=== PATIENT | female | born 1950 | race Caucasian/White ===

== ENCOUNTER → 2018-01-20 | Outpatient (CLI) | payer MEDICARE, BC ==
--- NOTE | 2018-01-20 15:01 | US ---
LOWER EXTREMITY VENOUS INSUFFICIENCY SIDE PERFORMED: Bilateral 1) Color flow is present and patency is documented in the following vessels. No DVT or SVT is noted . EIV Common Femoral Vein Deep Femoral Vein Femoral Vein Popliteal Vein Proximal Calf Veins Greater Saph Vein Upper Small Saph Vein 2) There is venous reflux noted at the following venous levels: Right: EIV, GSV at level of CFV, CF V, DFV. Left: EIV, GSV at level of CFV. IMPRESSION: 1. Venous reflux as noted.
--- NOTE | 2018-01-25 11:17 | P.ARTDOP ---
Arterial Doppler LOWER EXTREMITY ARTERIAL DOPPLER: DATE OF SERVICE: 01/20/2018 Reason for study: Diabetic ulcer right foot. Doppler waveforms: Multiphasic bilaterally throughout. Pulse volume recording: Normal configuration. Pressure gradients: None. Ankle-brachial indices: Greater than 1 on the right and 0.94 on the left. Toe pressures: 98 on the right, 97 on the left Impression: Normal study.
== END | disposition home or self-care (01) ==
LOC: RADUSWWP 13:21
PROVIDERS: ATTEND Internal Medicine Infectious Disease
DX: E11.621 Type 2 diabetes mellitus with foot ulcer (principal); L97.519 Non-pressure chronic ulcer of other part of right foot with unspecified severity; I87.2 Venous insufficiency (chronic) (peripheral)
CPT/HCPCS: 93923; 93970

== ENCOUNTER → 2018-01-20 | Outpatient (CLI) | payer MEDICARE, BC ==
--- NOTE | 2018-01-20 13:09 | NM ---
EXAMINATION TYPE: NM bone 3 phase DATE OF EXAM: 01/20/2018 COMPARISON: NONE HISTORY: Nonhealing wound Triple phase bone scintigraphy was performed following the injection of 24 mCi Tc 99m MDP. Immediate images and 5 hours post injection images acquired. FINDINGS: There is increased flow particularly along the left ankle region. Slight increased flow to the third digit on the right. Next sentence there is increased uptake on soft tissue blood pool images along th e medial margin of the left ankle and along the distal margin of the right third digit Delayed imaging demonstrates intense abnormal uptake involving the posterior margin of the left calca neus and there is also increased uptake involving the distal margin of the right third digit. IMPRESSION: 1. Findings are suggestive of osteomyelitis and cellulitis right third digit. 2. Findings involving the posterior margin of the calcaneus are nonspecific can be seen on a posttrau matic basis or infectious etiology correlate with x-ray.
== END | disposition home or self-care (01) ==
LOC: RADNMMAIN 07:20
PROVIDERS: ATTEND Internal Medicine Infectious Disease
DX: E11.621 Type 2 diabetes mellitus with foot ulcer (principal)
CPT/HCPCS: 78315; A9503

== ENCOUNTER → 2018-02-01 | Outpatient (CLI) | payer MEDICARE, BC ==
--- NOTE | 2018-02-02 14:29 | NM ---
EXAMINATION TYPE: NM WBC limited DATE OF EXAM: 02/02/2018 COMPARISON: Bone scan 01/20/2018, toes right foot 01/13/2018 HISTORY: Osteomyelitis TECHNIQUE: Following administration of 21.4 mCi Tc99m Ceretec. Images obtained 4 hour(s) and 23 april r(s) post injection. FINDINGS: There is increased radio pharmaceutical uptake seen at the level of the third digit of the right foot as on bone scan. No corresponding radio pharmaceutical uptake at the level of the patient's posterior left calcaneus. IMPRESSION: Findings compatible with osteomyelitis third digit right foot
== END | disposition home or self-care (01) ==
LOC: RADNMMAIN 06:41
PROVIDERS: ATTEND Podiatrist
DX: M86.8X8 Other osteomyelitis, other site (principal)
CPT/HCPCS: 78805; A9569

== ENCOUNTER 2018-10-20 09:56 | Emergency (ER) | payer MEDICARE, BC ==
[2018-10-20 10:00] VITALS: RESP 18; TEMP 98.6
[2018-10-20] MEDS ORDERED: IPRATROPIUM-ALBUTEROL 3 ML NEB INHALATION STA (10:17)
--- NOTE | 2018-10-20 11:07 | ED ---
SOB HPI - General Chief Complaint: Shortness of Breath Stated Complaint: cough,chest pressure Time Seen by Provider: 10/20/18 10:06 Source: patient Mode of arrival: ambulatory Limitations: no limitations - History of Present Illness Initial Comments: This a 67-year-old female presents emergency Department chief complaint of cough congestion shortness of breath. Patient states she's been sick for last 4-5 days. Patient states her cough has worsened overnight she states is a 1 sounding cough which is nonproductive she has noticed wheezing and some chest tightness states that she has no exact pain. Patient has no prior cardiac disease she is a known diabetic. Denies any history of COPD or asthma. She does have known seasonal ALLERGIES. She has been taking some zeiu-vom-[id number] cough and cold medications. Patient denies any fevers or chills today. - Related Data Home Medications Medication Instructions Recorded Confirmed Atorvastatin [Lipitor] 20 mg PO HS 01/10/18 10/20/18 PARoxetine [Paxil] 20 mg PO DAILY 01/10/18 10/20/18 diphenhydrAMINE [Benadryl] 25 mg PO BID 01/10/18 10/20/18 metFORMIN HCL [Glucophage] 500 mg PO BID 01/10/18 10/20/18 Omeprazole [PriLOSEC] 20 mg PO AC-BID 01/13/18 10/20/18 Multivitamins, Thera [Multivitamin 1 tab PO DAILY 10/20/18 10/20/18 (formulary)] Previous Rx's Medication Instructions Recorded Albuterol Nebulized [Ventolin 2.5 mg INHALATION Q4H PRN #25 nebu 10/20/18 Nebulized] Azithromycin [Zithromax Z-pack] 0 mg PO DIRECTED #1 pack 10/20/18 Allergies Allergy/AdvReac Type Severity Reaction Status Date / Time Penicillins Allergy Swelling Verified 10/20/18 10:30 sulfamethoxazole Allergy shaking Verified 10/20/18 10:30 [From Bactrim] trimethoprim [From Bactrim] Allergy shaking Verified 10/20/18 10:30 Review of Systems ROS Statement: Those systems with pertinent positive or pertinent negative responses have been documented in the HPI. ROS Other: All systems not noted in ROS Statement are negative. Past Medical History Past Medical History: Diabetes Mellitus, Hyperlipidemia, Osteoarthritis (OA) Additional Past Medical History / Comment(s): GOUT, ATHRITIS,lt elbow and lower back bone spur, wound 3rd toe rt foot History of Any Multi-Drug Resistant Organisms: None Reported Past Surgical History: Cholecystectomy, Hysterectomy Additional Past Surgical History / Comment(s): SX FOR GLAUCOMA, SURGERY FOR RECTAL ABSCESS Past Anesthesia/Blood Transfusion Reactions: No Reported Reaction Past Psychological History: Anxiety Smoking Status: Former smoker Past Alcohol Use History: None Reported Past Drug Use History: None Reported - Past Family History Father Family Medical History: CVA/TIA, Hypertension Additional Family Medical History / Comment(s): AT AGE 95- NEVER TOOK ANY PRESCRIPTION MEDS UNTIL AGE 85 Mother Family Medical History: Congestive Heart Failure (CHF), Diabetes Mellitus, Myocardial Infarction ([place]) Additional Family Medical History / Comment(s): AT AGE 73-from [place] General Exam Limitations: no limitations General appearance: alert, in no apparent distress Head exam: Present: atraumatic, normocephalic, normal inspection Eye exam: Present: normal appearance, PERRL, EOMI. Absent: scleral icterus, conjunctival injection, periorbital swelling ENT exam: Present: normal exam, normal oropharynx, mucous membranes moist Neck exam: Present: normal inspection. Absent: tenderness, meningismus, lymphadenopathy Respiratory exam: Present: wheezes. Absent: normal lung sounds bilaterally, respiratory distress, rales, rhonchi, stridor Cardiovascular Exam: Present: regular rate, normal rhythm, normal heart sounds. Absent: systolic murmur, diastolic murmur, rubs, gallop, clicks Neurological exam: Present: alert, oriented X3, CN II-XII intact Skin exam: Present: warm, dry, intact, normal color. Absent: rash Course Vital Signs 10/20/18 10/20/18 10/20/18 09:57 11:30 11:33 Temperature 98.6 F Pulse Rate 101 H 85 83 Respiratory 18 18 Rate Blood Pressure 146/75 145/79 O2 Sat by Pulse 98 95 Oximetry 10/20/18 11:43 Temperature Pulse Rate 85 Respiratory Rate Blood Pressure O2 Sat by Pulse Oximetry Medical Decision Making - Medical Decision Making 67-year-old female presented for cough congestion shortness of breath. Patient has upper respiratory infection x-rays reviewed shows no evidence of pneumonia. Labs are unremarkable. EKG is unremarkable patient will be discharged with azithromycin, albuterol. She does feel greatly improved after breathing treatment here in emergency department. - Lab Data Result diagrams: 10/20/18 11:00 10/20/18 11:00 Lab Results 10/20/18 10/20/18 10/20/18 Range/Units 11:00 11:00 11:00 WBC 8.9 (3.8-10.6) k/uL RBC 5.08 (3.80-5.40) m/uL Hgb 15.3 (11.4-16.0) gm/dL Hct 47.0 H (34.0-46.0) % MCV 92.5 (80.0-100.0) fL MCH 30.2 (25.0-35.0) pg MCHC 32.7 (31.0-37.0) g/dL RDW 13.0 (11.5-15.5) % Plt Count 211 (150-450) k/uL Neutrophils % 83 % Lymphocytes % 11 % Monocytes % 4 % Eosinophils % 1 % Basophils % 0 % Neutrophils # 7.3 (1.3-7.7) k/uL Lymphocytes # 1.0 (1.0-4.8) k/uL Monocytes # 0.4 (0-1.0) k/uL Eosinophils # 0.1 (0-0.7) k/uL Basophils # 0.0 (0-0.2) k/uL PT 9.5 (9.0-12.0) sec INR 0.9 (<1.2) APTT 27.6 (22.0-30.0) sec Sodium 135 L (137-145) mmol/L Potassium 5.1 (3.5-5.1) mmol/L Chloride 101 (98-107) mmol/L Carbon Dioxide 22 (22-30) mmol/L Anion Gap 12 mmol/L BUN 15 (7-17) mg/dL Creatinine 0.75 (0.52-1.04) mg/dL Est GFR (CKD-EPI)AfAm >90 (>60 ml/min/1.73 sqM) Est GFR (CKD-EPI)NonAf 82 (>60 ml/min/1.73 sqM) Glucose 238 H (74-99) mg/dL Calcium 9.1 (8.4-10.2) mg/dL Total Bilirubin 0.6 (0.2-1.3) mg/dL AST 74 H (14-36) U/L ALT 70 H (9-52) U/L Alkaline Phosphatase 85 (38-126) U/L Troponin I (0.000-0.034) ng/mL Total Protein 6.9 (6.3-8.2) g/dL Albumin 4.2 (3.5-5.0) g/dL 10/20/18 Range/Units 11:00 WBC (3.8-10.6) k/uL RBC (3.80-5.40) m/uL Hgb (11.4-16.0) gm/dL Hct (34.0-46.0) % MCV (80.0-100.0) fL MCH (25.0-35.0) pg MCHC (31.0-37.0) g/dL RDW (11.5-15.5) % Plt Count (150-450) k/uL Neutrophils % % Lymphocytes % % Monocytes % % Eosinophils % % Basophils % % Neutrophils # (1.3-7.7) k/uL Lymphocytes # (1.0-4.8) k/uL Monocytes # (0-1.0) k/uL Eosinophils # (0-0.7) k/uL Basophils # (0-0.2) k/uL PT (9.0-12.0) sec INR (<1.2) APTT (22.0-30.0) sec Sodium (137-145) mmol/L Potassium (3.5-5.1) mmol/L Chloride (98-107) mmol/L Carbon Dioxide (22-30) mmol/L Anion Gap mmol/L BUN (7-17) mg/dL Creatinine (0.52-1.04) mg/dL Est GFR (CKD-EPI)AfAm (>60 ml/min/1.73 sqM) Est GFR (CKD-EPI)NonAf (>60 ml/min/1.73 sqM) Glucose (74-99) mg/dL Calcium (8.4-10.2) mg/dL Total Bilirubin (0.2-1.3) mg/dL AST (14-36) U/L ALT (9-52) U/L Alkaline Phosphatase (38-126) U/L Troponin I <0.012 (0.000-0.034) ng/mL Total Protein (6.3-8.2) g/dL Albumin (3.5-5.0) g/dL - EKG Data EKG Comments: EKG performed at 10:47 normal sinus rhythm with rate 88 SD 166 QRS 82 QT/QTC 370/447, poor data quality V5 V6 Disposition Clinical Impression: Acute bronchitis, Upper respiratory infection Disposition: HOME SELF-CARE Condition: Stable Instructions (If sedation given, give patient instructions): Acute Bronchitis (ED) Additional Instructions: Please return to the Emergency Department if symptoms worsen or any other concerns. Prescriptions: Albuterol Nebulized [Ventolin Nebulized] 2.5 mg INHALATION Q4H PRN #25 nebu PRN Reason: difficulty in breathing Azithromycin [Zithromax Z-pack] 0 mg PO DIRECTED #1 pack Is patient prescribed a controlled substance at d/c from ED?: No Referrals: Jonel Aguilar MD [Primary Care Provider] - 1-2 days Time of Disposition: 12:20
[2018-10-20 11:16] LABS: Basophils % (A) 0 %; Eosinophils # (A) 0.1 k/uL (0-0.7); Eosinophils % (A) 1 %; HGB 15.3 gm/dL (11.4-16.0); Lymphocytes % (A) 11 %; MCH 30.2 pg (25.0-35.0); MCHC 32.7 g/dL (31.0-37.0); MCV 92.5 fL (80.0-100.0); Mean Platelet Volume 7.3; Monocytes # (A) 0.4 k/uL (0-1.0); Monocytes % (A) 4 %; Neutrophils # (A) 7.3 k/uL (1.3-7.7); Neutrophils % (A) 83 %; Platelet Count 211 k/uL (150-450); RBC 5.08 m/uL (3.80-5.40); WBC 8.9 k/uL (3.8-10.6)
[2018-10-20 11:24] LABS: Albumin 4.2 g/dL (3.5-5.0); Anion Gap 12 mmol/L; Blood Urea Nitrogen 15 mg/dL (7-17); Calcium 9.1 mg/dL (8.4-10.2); Carbon Dioxide 22 mmol/L (22-30); Chloride 101 mmol/L (98-107); Glucose 238 mg/dL (74-99); Sodium 135 mmol/L (137-145); Total Bilirubin 0.6 mg/dL (0.2-1.3); Total Protein 6.9 g/dL (6.3-8.2)
[2018-10-20 11:26] LABS: INR 0.9 (<1.2); Partial Thromboplastin Time 27.6 sec (22.0-30.0); Prothrombin Time 9.5 sec (9.0-12.0)
--- NOTE | 2018-10-20 11:28 | XR ---
EXAMINATION TYPE: XR chest 2V DATE OF EXAM: 10/20/2018 COMPARISON: Chest x-ray 10/24/2012 HISTORY: Difficulty breathing TECHNIQUE: Frontal and lateral views of the chest are obtained. FINDINGS: There are overlying cardiac leads. The aorta is dense. There is no focal air space opacity, pleural effusion, or pneumothorax seen. The cardiac silhouette size is stable. Thoracic spondylosi s is again noted. The osseous structures are intact. IMPRESSION: No acute cardiopulmonary process.
[2018-10-20 11:32] LABS: Potassium 5.1 mmol/L (3.5-5.1)
[2018-10-20 11:33] LABS: ALT 70 U/L (9-52); AST 74 U/L (14-36); Alkaline Phosphatase 85 U/L (38-126)
[2018-10-20] MEDS ORDERED: cefTRIAXone IN SWFI 1,000 MG/10 ML SYRINGE IVP STA (12:17)
[2018-10-20 12:26] VITALS: BP 147/93; PULSE 96
== END 2018-10-20 12:30 | disposition home or self-care (01) ==
LOC: EC 09:56
DX: J20.9 Acute bronchitis, unspecified (principal); J06.9 Acute upper respiratory infection, unspecified; E11.9 Type 2 diabetes mellitus without complications; E78.5 Hyperlipidemia, unspecified; F41.9 Anxiety disorder, unspecified; Z87.891 Personal history of nicotine dependence; Z82.49 Family history of ischemic heart disease and other diseases of the circulatory system; Z79.84 Long term (current) use of oral hypoglycemic drugs; Z79.899 Other long term (current) drug therapy; Z88.0 Allergy status to penicillin; Z88.2 Allergy status to sulfonamides
CPT/HCPCS: 36415; 94640; 93005; 80053; 84484; 85025; 85610; 85730; 71046; 99285; 96374; J0696

== ENCOUNTER 2022-03-26 19:32 | Emergency (ER) | payer MEDICARE, BC ==
[2022-03-26 19:51] VITALS: BP 195/78; PULSE 88; RESP 16; TEMP 98.2
--- NOTE | 2022-03-26 21:22 | CT ---
EXAMINATION TYPE: CT brain flex perla DATE OF EXAM: 03/26/2022 COMPARISON: Protocol. HISTORY: Pt was using a chain saw and a tree branch came back and hit her in the head. Pts left eye i s swollen and bruised. CT DLP: 1389.2 mGycm. Automated Exposure Control for Dose Reduction was Utilized. TECHNIQUE: CT scan of the head and cervical spine are performed without contrast. FINDINGS: There is focal soft tissue swelling over the right orbit, in preseptal position. No underly ing fracture. The orbital contents are unremarkable. There is no skull fracture or acute intracranial hemorrhage, mass effect, or midline shift identified . The ventricles and sulci are within normal limits in size. The globes are intact and the visualiz ed sinuses are clear. Cervical spine is visualized in its entirety from C1 through upper thoracic levels and demonstrates s atisfactory alignment without evidence of acute fracture or dislocation. Prevertebral soft tissue ap pears within normal limits. The C1-C2 articulation is unremarkable. IMPRESSION: 1. There is no acute fracture or dislocation evident in the cervical spine. 2. No acute intracranial hemorrhage, mass effect, or midline shift is seen.
--- NOTE | 2022-03-26 21:26 | CT ---
EXAMINATION TYPE: CT facial bones wo con DATE OF EXAM: 03/26/2022 COMPARISON: NONE HISTORY: Pt was using a chain saw and a tree branch came back and hit her in the head. Pts left eye i s swollen and bruised. CT DLP: 1389.2 mGycm. Automated Exposure Control for Dose Reduction was Utilized. TECHNIQUE: CT scan of the sinuses is performed without contrast, axial images are obtained, coronal r eformatted images are also reviewed. FINDINGS: There is focal soft tissue swelling over the right orbit, in preseptal position. No underlying fractu re. The orbital contents are unremarkable. The frontal and bilateral ethmoid sinuses are clear and unremarkable. The sphenoid and bilateral maxi llary sinuses are clear and unremarkable. No incidental findings. IMPRESSION: Focal soft tissue swelling of the right orbit.13
--- NOTE | 2022-03-26 21:51 | ED ---
Head Injury HPI - General Chief complaint: Head Injury Stated complaint: Facial injury Source: patient, RN notes reviewed Mode of arrival: ambulatory Limitations: no limitations - History of Present Illness Initial comments: Patient is a 71-year-old female presents to the emergency room after having a very large tree branch fall onto her head and facial region. She denies any loss of consciousness. She does have bruising and swelling around her right orbit. She denies any blurred or double vision headache not directly related to area that is ecchymotic, dizziness, abdominal pain, chest pain, shortness of breath, nausea, vomiting, altered mental status or focal neurological deficits. She has a past medical history significant for diabetes, hyperlipidemia and art hritis. - Related Data Home Medications Medication Instructions Recorded Confirmed Atorvastatin [Lipitor] 20 mg PO HS 01/10/18 10/20/18 PARoxetine [Paxil] 20 mg PO DAILY 01/10/18 10/20/18 diphenhydrAMINE [Benadryl] 25 mg PO BID 01/10/18 10/20/18 metFORMIN HCL [Glucophage] 500 mg PO BID 01/10/18 10/20/18 Omeprazole [PriLOSEC] 20 mg PO AC-BID 01/13/18 10/20/18 Multivitamins, Thera [Multivitamin 1 tab PO DAILY 10/20/18 10/20/18 (formulary)] Previous Rx's Medication Instructions Recorded Albuterol Nebulized [Ventolin 2.5 mg INHALATION Q4H PRN #25 nebu 10/20/18 Nebulized] Azithromycin [Zithromax Z-pack (6 0 mg PO DIRECTED #1 pack 10/20/18 tabs)] Allergies/Adverse reactions: Allergies Allergy/AdvReac Type Severity Reaction Status Date / Time Penicillins Allergy Swelling Verified 10/20/18 10:30 sulfamethoxazole Allergy shaking Verified 10/20/18 10:30 [From Bactrim] trimethoprim [From Bactrim] Allergy shaking Verified 10/20/18 10:30 Review of Systems ROS Statement: Those systems with pertinent positive or pertinent negative responses have been documented in the HPI. ROS Other: All systems not noted in ROS Statement are negative. Past Medical History Past Medical History: Diabetes Mellitus, Hyperlipidemia, Osteoarthritis (OA) Additional Past Medical History / Comment(s): GOUT, ATHRITIS,lt elbow and lower back bone spur, wound 3rd toe rt foot History of Any Multi-Drug Resistant Organisms: None Reported Past Surgical History: Cholecystectomy, Hysterectomy Additional Past Surgical History / Comment(s): SX FOR GLAUCOMA, SURGERY FOR RECTAL ABSCESS Past Anesthesia/Blood Transfusion Reactions: No Reported Reaction Past Psychological History: Anxiety Past Alcohol Use History: None Reported Past Drug Use History: None Reported - Past Family History Father Family Medical History: CVA/TIA, Hypertension Additional Family Medical History / Comment(s): AT AGE 95- NEVER TOOK ANY PRESCRIPTION MEDS UNTIL AGE 85 Mother Family Medical History: Congestive Heart Failure (CHF), Diabetes Mellitus, Myocardial Infarction ([place]) Additional Family Medical History / Comment(s): AT AGE 73-from [place] General Exam General appearance: alert, in no apparent distress Head exam: Present: normocephalic Expanded Head exam: Present: abrasion ( right upper orbit), hematoma (right lateral orbit) Eye exam: Present: normal appearance, PERRL, EOMI, periorbital swelling ( right), periorbital tenderness ( right). Absent: scleral icterus, conjunctival injection, nystagmus ENT exam: Present: normal exam, mucous membranes moist Neck exam: Present: normal inspection, full ROM. Absent: tenderness Respiratory exam: Absent: respiratory distress, accessory muscle use Extremities exam: Present: normal inspection, full ROM. Absent: pedal edema, joint swelling Back exam: Present: normal inspection Neurological exam: Present: alert, oriented X3, CN II-XII intact Psychiatric exam: Present: normal affect, normal mood Skin exam: Present: abrasion ( right upper orbit with ecchymosis) Course Vital Signs 03/26/22 19:47 Temperature 98.2 F Pulse Rate 88 Respiratory 16 Rate Blood Pressure 195/78 O2 Sat by Pulse 99 Oximetry Medical Decision Making - Medical Decision Making 71-year-old female presenting to the ER after head trauma without loss of consciousness significant hematoma to right orbit. No indication for laboratory studies. Denies any analgesic need. Will check computed tomography scan of the facial bones to evaluate for fractures Along with CT cervical spine and brain. CT reveals no mass, bleed or shift to the brain, no cervical spine fractures or facial bone fractures. Discuss concussive symptoms at length and return parameters to the emergency room will discharge home. Case discussed with Dr. Garcia. - Radiology Data Radiology results: report reviewed, image reviewed CT facial bones without contrast impression: Focal soft tissue swelling at the right orbit no underlying fractures orbital contents are unremarkable. Computed tomography scan of brain and cervical spine without contrast impression: There is no acute fracture or dislocation evident in the cervical spine. No acute intracranial hemorrhage, mass effect or midline shift is seen. Disposition Clinical Impression: Traumatic hematoma of right orbit Disposition: HOME SELF-CARE Instructions (If sedation given, give patient instructions): Concussion (ED), Hematoma (ED) Additional Instructions: Please follow-up with your primary care provider. Please utilize Tylenol or ibuprofen [id number] as needed for pain. Please continue to apply ice every 2-3 hours for 20 minute increments to the right orbital hematoma. Please continue to monitor for concussive symptoms and return to the emergency room if symptoms worsen. Please return to the Emergency Department if symptoms worsen or any other concerns. Is patient prescribed a controlled substance at d/c from ED?: No Referrals: Jonel Aguilar MD [Primary Care Provider] - 1-2 days Time of Disposition: 21:50
== END 2022-03-26 22:13 | disposition home or self-care (01) ==
LOC: EC 19:32
DX: H05.231 Hemorrhage of right orbit (principal); E11.9 Type 2 diabetes mellitus without complications; E78.5 Hyperlipidemia, unspecified; M19.90 Unspecified osteoarthritis, unspecified site; F41.9 Anxiety disorder, unspecified; Z88.0 Allergy status to penicillin; Z79.82 Long term (current) use of aspirin; Z79.84 Long term (current) use of oral hypoglycemic drugs; Z79.899 Other long term (current) drug therapy; Z79.51 Long term (current) use of inhaled steroids
CPT/HCPCS: 70450; 70486; 72125; 99283

== ENCOUNTER 2023-04-29 17:29 | Emergency (ER) | payer MEDICARE, BC ==
--- NOTE | 2023-04-29 18:26 | ED ---
General Adult HPI - General Source: patient, RN notes reviewed <Kristan Chowdary - Last Filed: 04/29/23 18:24> <oLy Almaraz - Last Filed: 04/30/23 02:16> - General Chief complaint: Fall Stated complaint: Back pain Time Seen by Provider: 04/29/23 18:20 - History of Present Illness Initial comments: 72-year-old female presents emergency department chief complaint of fall. Patient states that she was working in the yard cutting branches off a tree. She states that she was pulling on a branch when it broke causing her to fall backwards onto her bottom. She reports pain to her left hip and low back. She has not tried walking since this happened. (Kristan Chowdary) 72-year-old female presenting with chief complaint of low back pain. She was doing yard work, she was attempting to cut down a tree branch, when she pulled the branch the branch broke and caused her to fall backwards. Patient states that she landed on her bottom. She denies any head injury, loss of consciousness, or use of blood thinners. She admits to pain in the lower back with radiation to the left hip. No loss of bowel or bladder control or saddle paresthesia. No numbness, tingling, weakness. (Loy Almaraz) - Related Data Home Medications Medication Instructions Recorded Confirmed Atorvastatin [Lipitor] 20 mg PO HS 01/10/18 10/20/18 PARoxetine [Paxil] 20 mg PO DAILY 01/10/18 10/20/18 diphenhydrAMINE [Benadryl] 25 mg PO BID 01/10/18 10/20/18 metFORMIN HCL [Glucophage] 500 mg PO BID 01/10/18 10/20/18 Omeprazole [PriLOSEC] 20 mg PO AC-BID 01/13/18 10/20/18 Multivitamins, Thera [Multivitamin 1 tab PO DAILY 10/20/18 10/20/18 (formulary)] Previous Rx's Medication Instructions Recorded Albuterol Nebulized [Ventolin 2.5 mg INHALATION Q4H PRN #25 nebu 10/20/18 Nebulized] Azithromycin [Zithromax Z-pack (6 0 mg PO DIRECTED #1 pack 10/20/18 tabs)] Allergies Allergy/AdvReac Type Severity Reaction Status Date / Time Penicillins Allergy Swelling Verified 04/29/23 18:26 sulfamethoxazole Allergy shaking Verified 04/29/23 18:26 [From Bactrim] trimethoprim [From Bactrim] Allergy shaking Verified 04/29/23 18:26 Review of Systems ROS Other: All systems not noted in ROS Statement are negative. <Kristan Chowdary - Last Filed: 04/29/23 18:24> ROS Other: All systems not noted in ROS Statement are negative. <Loy Almaraz - Last Filed: 04/30/23 02:16> ROS Statement: Those systems with pertinent positive or pertinent negative responses have been documented in the HPI. Past Medical History Past Medical History: Diabetes Mellitus, Hyperlipidemia, Osteoarthritis (OA) Additional Past Medical History / Comment(s): GOUT, ATHRITIS,lt elbow and lower back bone spur, wound 3rd toe rt foot History of Any Multi-Drug Resistant Organisms: None Reported Past Surgical History: Cholecystectomy, Hysterectomy Additional Past Surgical History / Comment(s): SX FOR GLAUCOMA, SURGERY FOR RECTAL ABSCESS Past Anesthesia/Blood Transfusion Reactions: No Reported Reaction Past Psychological History: Anxiety Past Alcohol Use History: None Reported Past Drug Use History: None Reported - Past Family History Father Family Medical History: CVA/TIA, Hypertension Additional Family Medical History / Comment(s): AT AGE 95- NEVER TOOK ANY PRESCRIPTION MEDS UNTIL AGE 85 Mother Family Medical History: Congestive Heart Failure (CHF), Diabetes Mellitus, Myocardial Infarction (NH) Additional Family Medical History / Comment(s): AT AGE 73-from NH <Kristan Chowdary - Last Filed: 04/29/23 18:24> General Exam <Kristan Chowdary - Last Filed: 04/29/23 18:24> Limitations: no limitations General appearance: alert, in no apparent distress Head exam: Present: atraumatic, normocephalic, normal inspection Eye exam: Present: normal appearance, EOMI Neck exam: Present: normal inspection, full ROM Respiratory exam: Present: normal lung sounds bilaterally. Absent: respiratory distress, wheezes, rales, rhonchi, stridor Cardiovascular Exam: Present: regular rate, normal rhythm, normal heart sounds. Absent: systolic murmur, diastolic murmur, rubs, gallop, clicks Back exam: Present: normal inspection Neurological exam: Present: alert, oriented X3 Expanded Patient oriented to: Present: person, place, time Speech: Present: fluid speech Eye Response: (4) open spontaneously Motor Response: (6) obeys commands Verbal Response: (5) oriented Mouna Total: 15 Psychiatric exam: Present: normal affect, normal mood Skin exam: Present: warm, dry <Loy Almaraz - Last Filed: 04/30/23 02:16> - General Exam Comments Initial Comments: Visual Physical Exam Vital signs reviewed General: Well-appearing, nontoxic, no acute distress. Head: Normocephalic, atraumatic Eyes: PERRLA, EOMI ENT: Airway patent Chest: Nonlabored breathing Skin: No visual rash, normal skin tone Neuro: Alert and oriented 3 Musculoskeletal: No gross abnormalities (Kristan Chowdary) Course Vital Signs 04/29/23 04/29/23 18:21 20:25 Temperature 97.6 F 97.6 F Pulse Rate 74 78 Respiratory 18 18 Rate Blood Pressure 142/82 152/82 O2 Sat by Pulse 98 98 Oximetry Medical Decision Making <Kristan Chowdary - Last Filed: 04/29/23 18:24> <Loy Almaraz - Last Filed: 04/30/23 02:16> - Medical Decision Making I preformed the quick note portion of this chart. Electronically signed by Kristan Chowdary PA-C (Kristan Chowdary) Was pt. sent in by a medical professional or institution ([facility], CO[employer] M[employer] OPERATOR, urgent care, hospital, or long term...) When possible be specific @ -No Did you speak to anyone other than the patient for history (EMS, parent, family, police, friend...)? What history was obtained from this source @ -No Did you review nursing and triage notes (agree or disagree)? Why? @ -I reviewed and agree with nursing and triage notes Were old charts reviewed (outside hosp., previous admission, EMS record, old EKG, old radiological studies, urgent care reports/EKG's, long term records)? Report findings @ -No old charts were reviewed Differential Diagnosis (chest pain, altered mental status, abdominal pain women, abdominal pain men, vaginal bleeding, weakness, fever, dyspnea, syncope, headache, dizziness, GI bleed, back pain, seizure, CVA, palpatations, mental health, musculoskeletal)? @ -Differential Musculoskeletal Muscular strain, contusion, ligament sprain, fracture, arthritis, septic arthritis, bursitis, cellulitis, muscle spasm, nerve compression, DVT, arterial occlusion, herpes zoster, electrolyte abnormality, tumor.... This is not meant to be in all inclusive list EKG interpreted by me (3pts min.). @ -As above X-rays interpreted by me (1pt min.). @ -No acute process seen on x-rays of the lumbar spine or left hip and pelvis CT interpreted by me (1pt min.). @ -None done U/S interpreted by me (1pt. min.). @ -None done What testing was considered but not performed or refused? (CT, X-rays, U/S, labs)? Why? @ -None What meds were considered but not given or refused? Why? @ -None Did you discuss the management of the patient with other professionals (professionals i.e. , PA, COAL MILL OPERATOR, lab, RT, psych nurse, social services director, balance sheet analyst, teacher, fisheries technical officer, business case analyst)? Give summary @ -No Was smoking cessation discussed for >3mins.? @ -No Was critical care preformed (if so, how long)? @ -No Were there social determinants of health that impacted care today? How? (Homelessness, low income, unemployed, alcoholism, drug addiction, transportation, low edu. Level, literacy, decrease access to med. care, usp, rehab)? @ -No Was there de-escalation of care discussed even if they declined (Discuss DNR or withdrawal of care, Hospice)? DNR status @ -No What co-morbidities impacted this encounter? (DM, HTN, Smoking, COPD, CAD, Cancer, CVA, ARF, Chemo, Hep., AIDS, mental health diagnosis, sleep apnea, morbid obesity)? @ -None Was patient admitted / discharged? Hospital course, mention meds given and route, prescriptions, significant lab abnormalities, going to OR and other pertinent info. @ -72-year-old female presenting for evaluation of lower back pain after a fall from standing today. No head injury, loss of consciousness, use of blood thinners. Pain is mainly in the lower back with radiation to the left hip. Physical exam is conducted, no focal neurological deficits. Negative x-rays. Patient reports improvement after medication. Educated on supportive management at home. Follow-up with PCP. Report back to ER with any new or worsening symptoms. Discussed return parameters and answered all questions. Patient conveyed verbal understanding and agreed to the plan. I discussed this case in detail with my attending Dr. Lucas Undiagnosed new problem with uncertain prognosis? @ -No Drug Therapy requiring intensive monitoring for toxicity (Heparin, Nitro, Insulin, Cardizem)? @ -No Were any procedures done? @ -No Diagnosis/symptom? @ -Lumbar back pain Acute, or Chronic, or Acute on Chronic? @ -Acute Uncomplicated (without systemic symptoms) or Complicated (systemic symptoms)? @ -Uncomplicated Side effects of treatment? @ -No Exacerbation, Progression, or Severe Exacerbation? @ -No Poses a threat to life or bodily function? How? (Chest pain, [place], NH, pneumonia, PE, COPD, DKA, ARF, appy, cholecystitis, CVA, Diverticulitis, Homicidal, Webb icidal, threat to staff... and all critical care pts) @ -No (Loy Almaraz) Disposition <Kristan Chowdary - Last Filed: 04/29/23 18:24> Is patient prescribed a controlled substance at d/c from ED?: No Time of Disposition: 20:11 <Loy Almaraz - Last Filed: 04/30/23 02:16> Clinical Impression: Lumbar back pain Disposition: HOME SELF-CARE Condition: Good Instructions (If sedation given, give patient instructions): Low Back Strain (ED) Additional Instructions: Follow-up with PCP. Report back to ER with any new or worsening symptoms. Take Motrin and Tylenol as needed for pain control. [id number] lidocaine patches may be helpful in alleviating your pain. Referrals: None,Stated [Primary Care Provider] - 1-2 days
[2023-04-29 18:29] VITALS: RESP 18; TEMP 97.6
--- NOTE | 2023-04-29 19:07 | XR ---
PROCEDURE: XR Hip LT and AP Pelvis - 3V DATE AND TIME: 04/29/2023 6:48 PM CLINICAL INDICATION: PHH; fall/pain TECHNIQUE: Department protocol COMPARISON: None FINDINGS: There is no fracture or malalignment. The soft tissues are unremarkable. IMPRESSION: NO ACUTE PROCESS.
--- NOTE | 2023-04-29 19:11 | XR ---
PROCEDURE: XR lumbosacral spine min 4v DATE AND TIME: 04/29/2023 6:48 PM CLINICAL INDICATION: PHH; fall/pain TECHNIQUE: 5 views were obtained. COMPARISON: None FINDINGS: There is no fracture or malalignment. There are marked degenerative facet changes at all levels. Marked degenerative disc changes at L4-5 a nd L5-S1, moderate in degree at the upper lumbar levels. IMPRESSION: NO ACUTE PROCESS.
[2023-04-29] MEDS ORDERED: ACET/COD 300 MG/30 MG STARTER PACK 6 TAB BTL PO STA (20:12)
[2023-04-29] MEDS ORDERED: LIDOCAINE 5% PATCH TOPICAL SCH (20:15)
[2023-04-29 20:45] VITALS: BP 152/82; PULSE 78
== END 2023-04-29 20:32 | disposition home or self-care (01) ==
LOC: EC 17:29
DX: M54.50 Low back pain, unspecified (principal); E11.9 Type 2 diabetes mellitus without complications; E78.5 Hyperlipidemia, unspecified; M19.90 Unspecified osteoarthritis, unspecified site; Z86.59 Personal history of other mental and behavioral disorders; Z88.0 Allergy status to penicillin; Z88.2 Allergy status to sulfonamides; Z79.84 Long term (current) use of oral hypoglycemic drugs; Z79.899 Other long term (current) drug therapy; Z79.1 Long term (current) use of non-steroidal anti-inflammatories (NSAID)
CPT/HCPCS: 72110; 73502; 99284

== ENCOUNTER 2023-05-30 12:43 | Inpatient (IN) | payer MEDICARE, BC ==
[2023-05-30 12:59] LABS: Glucose,Whole Blood 236 mg/dL (70-110)
--- NOTE | 2023-05-30 13:02 | ED ---
General Adult HPI - General Stated complaint: Fall, R Hip Injury Source: patient, RN notes reviewed, old records reviewed - History of Present Illness Initial comments: Patient is a 72-year-old female with past medical history remarkable for diabetes, hyperlipidemia, arthritis who presents emergency Department complaining of a fall. Patient fell this morning in her laundry room. Was trying to get her right to off her foot when she lost her balance and fell onto her right side hitting her head. Did not lose consciousness. He is not on blood thinners. Endorses right hip pain. Was able to crawl and call for help. EMS arrived and on the way to the hospital, patient did have a transient episode of dysarthria as well as right-sided facial droop. Patient has chronic right lower facial droop however she had more pronounced per EMS. Patient currently is back to her normal baseline at this time. As I stated above, per patient she does have a baseline mild right facial droop with smiling which is chronic for her. Over the dysarthria was brand-new and transient. Presents for further evaluation at this time. Also endorses some mild neck pain, low back pain. No other acute complaints. Denies chest pain or shortness breath. Denies any abdominal pain. Presents for further evaluation. - Related Data Home Medications Medication Instructions Recorded Confirmed Atorvastatin [Lipitor] 20 mg PO HS 01/10/18 05/30/23 PARoxetine [Paxil] 20 mg PO DAILY 01/10/18 05/30/23 diphenhydrAMINE [Benadryl] 25 mg PO BID 01/10/18 05/30/23 Cyclobenzaprine [Flexeril] 10 mg PO BID PRN 05/30/23 05/30/23 metFORMIN HCL ER [Glucophage XR] 1,000 mg PO BID 05/30/23 05/30/23 Allergies Allergy/AdvReac Type Severity Reaction Status Date / Time Penicillins Allergy Swelling Verified 05/30/23 16:52 face sulfamethoxazole AdvReac shaking Verified 05/30/23 16:52 [From Bactrim] trimethoprim [From Bactrim] AdvReac shaking Verified 05/30/23 16:52 Review of Systems ROS Statement: Those systems with pertinent positive or pertinent negative responses have been documented in the HPI. Review of Systems: CONST: Denies fever EYES: Denies blurry vision ENT: Denies nasal congestion C/V: Denies Chest pain RESP: Denies shortness of breath GI: Denies abdominal pain : Denies dysuria SKIN: Denies rash. MSK: Endorses low back pain, neck pain, right hip pain NEURO: Denies headache ROS Other: All systems not noted in ROS Statement are negative. Past Medical History Past Medical History: Diabetes Mellitus, Hyperlipidemia, Osteoarthritis (OA) Additional Past Medical History / Comment(s): GOUT, ATHRITIS,lt elbow and lower back bone spur, wound 3rd toe rt foot History of Any Multi-Drug Resistant Organisms: None Reported Past Surgical History: Cholecystectomy, Hysterectomy Additional Past Surgical History / Comment(s): SX FOR GLAUCOMA, SURGERY FOR RECTAL ABSCESS Past Anesthesia/Blood Transfusion Reactions: No Reported Reaction Past Psychological History: Anxiety Past Alcohol Use History: None Reported Past Drug Use History: None Reported - Past Family History Father Family Medical History: CVA/TIA, Hypertension Additional Family Medical History / Comment(s): AT AGE 95- NEVER TOOK ANY PRESCRIPTION MEDS UNTIL AGE 85 Mother Family Medical History: Congestive Heart Failure (CHF), Diabetes Mellitus, Myocardial Infarction (OR) Additional Family Medical History / Comment(s): AT AGE 73-from [place] General Exam - General Exam Comments Initial Comments: General: Appears in mild distress secondary to pain. HEAD: Normal with no signs of head trauma. Negative lemus sign. Negative raccoon eyes. EYES: PERRLA, EOMI, conjunctiva normal, no discharge. Pupils are 3 mm and equal bilaterally. ENT: Hearing grossly intact, normal oropharynx. RESPIRATORY: Clear breath sounds bilaterally. No wheezes, rales, or rhonchi. C/V: Regular rate and rhythm. S1 and S2 auscultated,peripheral pulses 2+ and intact throughout ABD: Abd is soft, nontender, nondistended EXT: Reduced range of motion of the right hip. No obvious deformity. No obvious shortening. Slight external rotation. Neurovascularly intact. Ten derness of the right hip. Pelvis is stable. Midline tenderness over the lower lumbar spine. Minimal midline tenderness of the cervical spine, primarily paraspinal muscle tenderness. No thoracic spine tenderness to palpation. No step-offs or deformities appreciated of the spine. SKIN: No rashes or lesions observed on exposed skin. NEURO: Alert and oriented x 4. Cranial nerves II-XII intact. No acute focal sensory or strength deficits. Some decreased range of motion at the right hip secondary to pain and suspected injury/fracture. However no acute neurological deficit at this time. His chronic right-sided lower mild facial droop but no dysarthria present. NIH is 0 for new symptoms. GCS is 15. Course Vital Signs 05/30/23 05/30/23 05/30/23 12:59 17:47 19:20 Temperature 98.8 F Pulse Rate 110 H 104 H 103 H Respiratory 19 18 19 Rate Blood Pressure 144/104 157/88 166/69 O2 Sat by Pulse 98 98 97 Oximetry Medical Decision Making - Medical Decision Making Was pt. sent in by a medical professional or institution (, PA, [employer], urgent care, hospital, or [facility]...) When possible be specific @ -No Did you speak to anyone other than the patient for history (EMS, parent, family, police, friend...)? What history was obtained from this source @ -No Did you review nursing and triage notes (agree or disagree)? Why? @ -I reviewed and agree with nursing and triage notes Were old charts reviewed (outside hosp., previous admission, EMS record, old EKG, old radiological studies, urgent care reports/EKG's, [facility] records)? Report findings @ -No old charts were reviewed Differential Diagnosis (chest pain, altered mental status, abdominal pain women, abdominal pain men, vaginal bleeding, weakness, fever, dyspnea, syncope, headache, dizziness, GI bleed, back pain, seizure, CVA, palpatations, mental health, musculoskeletal)? @ -Differential Musculoskeletal Muscular strain, contusion, ligament sprain, fracture, arthritis, septic arthritis, bursitis, cellulitis, muscle spasm, nerve compression, DVT, arterial occlusion, herpes zoster, electrolyte abnormality, tumor.... This is not meant to be in all inclusive list. Also includes transient dysarthria, TIA, CVA, intracranial bleed or injury, spine injury, right hip fracture. This list is not all inclusive. EKG interpreted by me (3pts min.). @ -As above X-rays interpreted by me (1pt min.). @ -Chest x-ray, femur x-ray negative for any obvious acute process. CT interpreted by me (1pt min.). @ -CT brain, C-spine, pelvis negative for any obvious acute traumatic injury or acute intracranial process. CT angiogram of the head and neck negative for any obvious acute process. Lumbar spine CT shows an acute L3 compression fracture. U/S interpreted by me (1pt. min.). @ -None done What testing was considered but not performed or refused? (CT, X-rays, U/S, labs)? Why? @ -None What meds were considered but not given or refused? Why? @ -TPA, however patient has a recurrent NIH of 0 and risks far outweigh the benefits with the patient. Did you discuss the management of the patient with other professionals (professionals i.e. , PA, [employer], lab, RT, psych nurse, clinical social worker, oven unloader, teacher, interface control officer, returned case inspector)? Give summary @ - Discussed with neuro crit care on-call doctor [place] who agreed that patient is n ot a TPA candidate at this time his symptoms are rapidly resolving but stated that patient can be reevaluated for this if symptoms occur again. Recommended 325 aspirin and 300 Plavix loading. This was ordered for the patient. Discussed with on-call orthopedic surgery Dr. Corea who accepted the consult. Was smoking cessation discussed for >3mins.? @ -No Was critical care preformed (if so, how long)? @ -Yes, 42 minutes Were there social determinants of health that impacted care today? How? (Homele ssness, low income, unemployed, alcoholism, drug addiction, transportation, low edu. Level, literacy, decrease access to med. care, [facility], rehab)? @ -No Was there de-escalation of care discussed even if they declined (Discuss DNR or withdrawal of care, Hospice)? DNR status @ -No What co-morbidities impacted this encounter? (DM, HTN, Smoking, COPD, CAD, Cancer, CVA, ARF, Chemo, Hep., AIDS, mental health diagnosis, sleep apnea, morbid obesity)? @ -None Was patient admitted / discharged? Hospital course, mention meds given and route, prescriptions, significant lab abnormalities, going to OR and other pertinent info. @ -[place] on the patient's presentation and physical exam, presents following a trauma. Occurred at 9 AM this morning. Patient also had a transient episode of dysarthria and slight worsening right-sided facial droop from baseline with EMS that resolved over the course of approximately 3-5 minutes. Current is asymptomatic. NIH is 0. Discussed this with the patient. She is not made an activated stroke as she has no symptoms however we will work the patient up with CT and CTA of the head and neck. We also obtained CTs of the spine, chest x- ray, pelvis x-ray, femur x-ray. We'll obtain trauma labs as well. Vital signs within acceptable limits other than tachycardia likely secondary to pain. She is given IV fentanyl for pain. Patient in agreement this plan. Patient's laboratory studies are remarkable for leukocytosis of 17 which is likely reactive. Urinalysis is still pending. Remainder the labs within acceptable limits except for mild hyperglycemia in the setting of diabetes. Patient's imaging negative for any obvious traumatic injury except for an L3 compression fracture.. Negative for any obvious signs of acute stroke. Following imaging results, I was notified by nursing that patient once again had an episode of dysarthria and facial droop. NIH at that time was 2. At this time I did activate a code stroke as patient was having active neuro symptoms at this time. This code stroke was activated at 1439. By the time neuro crit care Dr. Goff back at 1449, patient's symptoms were nearly completely resolved once again. I did discuss this with the neuropathic care physician, Dr. Goff who recommended 325 mg of aspirin and 300mg Plavix dosing. Agreed that patient is not a TPA candidate at this time his symptoms have nearly resolved and risks far outweigh benefits. Did state that this could be reevaluated if patient once again expenses the symptoms. Recommended admission for neurology evaluation I did update the patient regarding this. I stressed understanding. They were in agreement with the plan for admission. Consult placed to on-call orthopedic who agreed with the consult. I spoke with medicine excepting physician Dr. Phipps who accepted the admission. Neurology Dr. Crowe consulted. At the time of admission, patient had an NIH of 0. Undiagnosed new problem with uncertain prognosis? @ -No Drug Therapy requiring intensive monitoring for toxicity (Heparin, Nitro, Insulin, Cardizem)? @ -No Were any procedures done? @ -No Diagnosis/symptom? @ -TIA, fall, lumbar compression fracture Acute, or Chronic, or Acute on Chronic? @ -Acute Uncomplicated (without systemic symptoms) or Complicated (systemic symptoms)? @ -Complicated Side effects of treatment? @ -none Exacerbation, Progression, or Severe Exacerbation] @ -no Poses a threat to life or bodily function? @ -Possibly, yes - Lab Data Result diagrams: 05/30/23 13:03 05/30/23 13:03 Lab Results 05/30/23 05/30/23 05/30/23 Range/Units 12:58 13:03 13:03 WBC 17.3 H (3.8-10.6) k/uL RBC 4.68 (3.80-5.40) m/uL Hgb 15.0 (11.4-16.0) gm/dL Hct 43.6 (34.0-46.0) % MCV 93.0 (80.0-100.0) fL MCH 32.0 (25.0-35.0) pg MCHC 34.4 (31.0-37.0) g/dL RDW 12.0 (11.5-15.5) % Plt Count 300 (150-450) k/uL MPV 7.9 Neutrophils % 81 % Lymphocytes % 14 % Monocytes % 4 % Eosinophils % 0 % Basophils % 0 % Neutrophils # 14.1 H (1.3-7.7) k/uL Lymphocytes # 2.5 (1.0-4.8) k/uL Monocytes # 0.6 (0-1.0) k/uL Eosinophils # 0.0 (0-0.7) k/uL Basophils # 0.0 (0-0.2) k/uL PT 10.7 (10.0-12.5) sec INR 1.0 (<1.2) APTT 20.7 L (22.0-30.0) sec Sodium (137-145) mmol/L Potassium (3.5-5.1) mmol/L Chloride (98-107) mmol/L Carbon Dioxide (22-30) mmol/L Anion Gap mmol/L BUN (7-17) mg/dL Creatinine (0.52-1.04) mg/dL Est GFR (CKD-EPI)AfAm (>60 ml/min/1.73 sqM) Est GFR (CKD-EPI)NonAf (>60 ml/min/1.73 sqM) Glucose (74-99) mg/dL POC Glucose (mg/dL) 236 H (70-110) mg/dL POC Glu Engineering Illustrator ID Derrick Joyce Calcium (8.4-10.2) mg/dL Total Bilirubin (0.2-1.3) mg/dL AST (14-36) U/L ALT (4-34) U/L Alkaline Phosphatase (38-126) U/L Creatine Kinase (30-135) U/L Total Protein (6.3-8.2) g/dL Albumin (3.5-5.0) g/dL Serum Alcohol mg/dL Blood Type Blood Type Confirm Blood Type Recheck Bld Type Recheck Status Antibody Screen Spec Expiration Date 05/30/23 05/30/23 05/30/23 Range/Units 13:03 13:05 13:11 WBC (3.8-10.6) k/uL RBC (3.80-5.40) m/uL Hgb (11.4-16.0) gm/dL Hct (34.0-46.0) % MCV (80.0-100.0) fL MCH (25.0-35.0) pg MCHC (31.0-37.0) g/dL RDW (11.5-15.5) % Plt Count (150-450) k/uL MPV Neutrophils % % Lymphocytes % % Monocytes % % Eosinophils % % Basophils % % Neutrophils # (1.3-7.7) k/uL Lymphocytes # (1.0-4.8) k/uL Monocytes # (0-1.0) k/uL Eosinophils # (0-0.7) k/uL Basophils # (0-0.2) k/uL PT (10.0-12.5) sec INR (<1.2) APTT (22.0-30.0) sec Sodium 136 L (137-145) mmol/L Potassium 3.9 (3.5-5.1) mmol/L Chloride 100 (98-107) mmol/L Carbon Dioxide 21 L (22-30) mmol/L Anion Gap 15 mmol/L BUN 17 (7-17) mg/dL Creatinine 0.79 (0.52-1.04) mg/dL Est GFR (CKD-EPI)AfAm 87 (>60 ml/min/1.73 sqM) Est GFR (CKD-EPI)NonAf 75 (>60 ml/min/1.73 sqM) Glucose 235 H (74-99) mg/dL POC Glucose (mg/dL) (70-110) mg/dL POC Glu Engineering Illustrator ID Calcium 9.5 (8.4-10.2) mg/dL Total Bilirubin 0.6 (0.2-1.3) mg/dL AST 28 (14-36) U/L ALT 22 (4-34) U/L Alkaline Phosphatase 106 (38-126) U/L Creatine Kinase 133 (30-135) U/L Total Protein 6.3 (6.3-8.2) g/dL Albumin 3.9 (3.5-5.0) g/dL Serum Alcohol <10 mg/dL Blood Type A Positive Blood Type Confirm A Positive Blood Type Recheck No Previous Record Bld Type Recheck Status CABO Indicated Antibody Screen NEGATIVE Spec Expiration Date 06/02/2023 - 231005/30/23 Range/Units 14:46 WBC (3.8-10.6) k/uL RBC (3.80-5.40) m/uL Hgb (11.4-16.0) gm/dL Hct (34.0-46.0) % MCV (80.0-100.0) fL MCH (25.0-35.0) pg MCHC (31.0-37.0) g/dL RDW (11.5-15.5) % Plt Count (150-450) k/uL MPV Neutrophils % % Lymphocytes % % Monocytes % % Eosinophils % % Basophils % % Neutrophils # (1.3-7.7) k/uL Lymphocytes # (1.0-4.8) k/uL Monocytes # (0-1.0) k/uL Eosinophils # (0-0.7) k/uL Basophils # (0-0.2) k/uL PT (10.0-12.5) sec INR (<1.2) APTT (22.0-30.0) sec Sodium (137-145) mmol/L Potassium (3.5-5.1) mmol/L Chloride (98-107) mmol/L Carbon Dioxide (22-30) mmol/L Anion Gap mmol/L BUN (7-17) mg/dL Creatinine (0.52-1.04) mg/dL Est GFR (CKD-EPI)AfAm (>60 ml/min/1.73 sqM) Est GFR (CKD-EPI)NonAf (>60 ml/min/1.73 sqM) Glucose (74-99) mg/dL POC Glucose (mg/dL) 210 H (70-110) mg/dL POC Glu Engineering Illustrator ID Dena Machuca Calcium (8.4-10.2) mg/dL Total Bilirubin (0.2-1.3) mg/dL AST (14-36) U/L ALT (4-34) U/L Alkaline Phosphatase (38-126) U/L Creatine Kinase (30-135) U/L Total Protein (6.3-8.2) g/dL Albumin (3.5-5.0) g/dL Serum Alcohol mg/dL Blood Type Blood Type Confirm Blood Type Recheck Bld Type Recheck Status Antibody Screen Spec Expiration Date - EKG Data -: EKG Interpreted by Me EKG Comments: 12-lead Electrocardiogram Interpretation Note EKG was reviewed and interpreted by myself. 12-lead ECG performed at 1253 is interpreted by me as revealing sinus tachycardia at a rate of 118 beats per minute. [place] is normal. [place] interval is 174 ms, QRS duration is 96 ms, QTc is 413 ms.. There were no ST or T wave abnormalities to suggest myocardial ischemia or injury. R wave progression across the precordium was satisfactory. By my interpretation this EKG is non-diagnostic for acute ischemia. Critical Care Time Critical Care Time: Yes Total Critical Care Time: 42 Disposition Clinical Impression: TIA (transient ischemic attack), Fall, Lumbar compression fracture Disposition[facility] Condition: Stable Time of Disposition: 15:11
[2023-05-30] MEDS ORDERED: fentaNYL (PF) 50 MCG/ML 2 ML AMP IVP STA (13:04)
[2023-05-30 13:47] LABS: Basophils % (A) 0 %; Eosinophils % (A) 0 %; HCT 43.6 % (34.0-46.0); Lymphocytes # (A) 2.5 k/uL (1.0-4.8); Lymphocytes % (A) 14 %; MCHC 34.4 g/dL (31.0-37.0); Mean Platelet Volume 7.9; Monocytes # (A) 0.6 k/uL (0-1.0); Monocytes % (A) 4 %; Neutrophils # (A) 14.1 k/uL (1.3-7.7); Neutrophils % (A) 81 %; Platelet Count 300 k/uL (150-450); RBC 4.68 m/uL (3.80-5.40); WBC 17.3 k/uL (3.8-10.6)
[2023-05-30 13:48] LABS: ALT 22 U/L (4-34); AST 28 U/L (14-36); African American GFR (CKD) 87 (>60 ml/min/1.73 sqM); Albumin 3.9 g/dL (3.5-5.0); Alcohol <10 mg/dL; Alkaline Phosphatase 106 U/L (38-126); Anion Gap 15 mmol/L; Blood Urea Nitrogen 17 mg/dL (7-17); Calcium 9.5 mg/dL (8.4-10.2); Carbon Dioxide 21 mmol/L (22-30); Chloride 100 mmol/L (98-107); Creatine Kinase 133 U/L (30-135); Glucose 235 mg/dL (74-99); Non-African American GFR(CKD) 75 (>60 ml/min/1.73 sqM); Potassium 3.9 mmol/L (3.5-5.1); Sodium 136 mmol/L (137-145); Total Bilirubin 0.6 mg/dL (0.2-1.3); Total Protein 6.3 g/dL (6.3-8.2)
[2023-05-30 13:54] LABS: Prothrombin Time 10.7 sec (10.0-12.5)
--- NOTE | 2023-05-30 13:54 | XR ---
EXAMINATION TYPE: XR femur RT DATE OF EXAM: 05/30/2023 COMPARISON: None HISTORY: Right femur TECHNIQUE: 2 view right femur FINDINGS: Degenerative joint changes at the right knee. Mild degenerative joint changes at the right hip No acute fracture or dislocation is evident. Vascular calcification is present. IMPRESSION: 1. No acute fractures right femur. 2. Mild degenerative changes at the joint spaces.
--- NOTE | 2023-05-30 13:54 | XR ---
EXAMINATION TYPE: XR chest 1V portable DATE OF EXAM: 05/30/2023 COMPARISON: 10/20/2018 INDICATION: Trauma TECHNIQUE: Single frontal view of the chest is obtained. FINDINGS: The heart size is normal. The pulmonary vasculature is normal. The lungs are clear. No pneumothorax is evident. No displaced rib fractures. IMPRESSION: 1. No acute pulmonary process.
--- NOTE | 2023-05-30 13:56 | CT ---
EXAMINATION TYPE: CT brain kaitlinine wo con DATE OF EXAM: 05/30/2023 COMPARISON: 03/26/2022 HISTORY: fall CT DLP: 1634 mGycm, Automated exposure control for dose reduction was used. CONTRAST: Patient injected with 0 mL of Isovue 300. CT of the brain is performed utilizing 3 mm thick sections through the posterior fossa and 3 mm thick sections through the remaining calvarium. Study is performed within 24 hours of arrival to the hospital. No abnormal hyperdensity is present to suggest an acute intracranial hemorrhage. No mass lesion is evident. No acute infarcts are evident. Ventricles and sulci are appropriate for the patient age. Paranasal sinuses and mastoid air cells within the [id number] are clear. IMPRESSIONS: 1. No acute intracranial process. Follow-up MRI can be performed as clinically indicated. CT cervical spine. COMPARISON: None CT of the cervical spine is performed in the axial plane at 2 mm thick sections. Reconstructed image s in the coronal, and sagittal plane are reviewed on the computer. No acute fractures are evident. There is slight kyphosis which be related to patient positioning or muscle spasm Disc heights are preserved. Vertebral body heights are preserved. No spinal canal stenosis is evident. Uncovertebral joint hypertrophy is present C5-6 bilaterally with moderate to severe foraminal stenosi s. IMPRESSION: 1. No acute osseous abnormality cervical spine
--- NOTE | 2023-05-30 13:59 | CT ---
EXAMINATION TYPE: CT pelvis wo con DATE OF EXAM: 05/30/2023 COMPARISON: INDICATION: Fall DLP: 1052 mGycm, Automated exposure control for dose reduction was used. CONTRAST: mL of . Study performed without Oral Contrast TECHNIQUE: Axial images were obtained from above the diaphragm to the pubic rami in the axial plane a t 5 mm thick sections. Reconstructed images are reviewed on the computer in the coronal plane. FINDINGS: CT PELVIS: There is a fecal bolus of the rectum. Visualized bowel loops appear nondilated. The appendix is visua lized is normal. No free fluid is within the pelvis. Uterus and ovaries are not identified. No suspic ious lytic or sclerotic lesions evident. No acute fractures are evident. IMPRESSION: 1. No acute abnormality right hip 2. Fecal bolus in the rectum
[2023-05-30 14:01] LABS: Partial Thromboplastin Time 20.7 sec (22.0-30.0)
--- NOTE | 2023-05-30 14:11 | CT ---
EXAMINATION TYPE: CT angio head neck CT DLP: 614.9 mGycm, Automated exposure control for dose reduction was used. DATE OF EXAM: 05/30/2023 1:59 PM COMPARISON: CT head same day. CLINICAL INDICATION:Female, 72 years old with history of transient dysarthria prior to arrival; PHH, Fall TECHNIQUE: Axially acquired helical CT angiogram of the head and neck was obtained with contrast. Axi al images are supplemented with 3D reconstructions which [facility] NASCET criteria used. Contrast used:65 mL of Isovue 370 with IV Contrast, Oral contrast used: None. FINDINGS: CTA HEAD: No evidence of acute intracranial hemorrhage, mass effect, or midline shift. The ventricles, sulci, a nd cisterns are unremarkable. The visualized portions of the internal carotid arteries, middle cerebral arteries, anterior cerebral arteries, and posterior cerebral arteries are patent. Atherosclerotic disease of the bilateral kortney nous carotid segments and supraclinoid segments are identified. The right posterior cerebral artery i s patent with partial circulation identified. The basilar and vertebral arteries are patent. Mild to moderate multifocal P2/P3 segment stenosis jacquie ntified bilaterally. CTA NECK: Right Carotid System: The common carotid artery and external carotid artery are patent. The carotid bifurcation demonstrate s no evidence of hemodynamically significant stenosis. The remaining portions of the internal carotid artery demonstrate normal size without significant narrowing. Left Carotid System: The common carotid artery and external carotid artery are patent. The carotid bifurcation demonstrate s no evidence of hemodynamically significant stenosis. The remaining portions of the internal carotid artery demonstrate normal size without significant narrowing. Vertebral arteries are patent without evidence hemodynamically significant stenosis. There is a three-vessel aortic arch. The origins of the great vessels are patent. No evidence of hemo dynamically significant stenosis. Upper thorax: Unremarkable. Moderate multilevel degenerative changes of the cervical spine are present. No acute osseous process IMPRESSION: 1. No evidence of dissection of the cervical internal carotid arteries or vertebral arteries or any e vidence of significant stenosis at the carotid bifurcations. 2. No evidence of intracranial high-grade stenosis or intracranial aneurysm.
[2023-05-30 14:47] LABS: Glucose,Whole Blood 210 mg/dL (70-110)
[2023-05-30] MEDS ORDERED: CLOPIDOGREL 75 MG TAB PO STA (14:53)
[2023-05-30] MEDS ORDERED: ASPIRIN 325 MG TAB PO STA (14:53)
--- NOTE | 2023-05-30 15:10 | CT ---
EXAMINATION TYPE: CT lumbar spine wo con DATE OF EXAM: 05/30/2023 COMPARISON: None HISTORY: Fall CT DLP: 1919.6 mGycm CONTRAST: None TECHNIQUE: CT of the lumbar spine is performed on a spiral scan at 3 mm thick sections. Reconstructed images are performed in the coronal and sagittal planes. FINDINGS: T12-L1: No focal disc herniation or significant disc bulge is evident. No spinal canal stenosis or neural foraminal stenosis is present. L1-L2: No focal disc herniation or significant disc bulge is evident. No spinal canal stenosis or n eural foraminal stenosis is present L2-L3: No focal disc herniation or significant disc bulge is evident. No spinal canal stenosis or n eural foraminal stenosis is present. L3: There is a superior endplate compression deformity which may be acute. There is approximately 20% loss of anterior vertebral body height. No posterior wall displacement is evident. No spinal canal s tenosis or neural foraminal stenosis is evident. L3-L4: Mild disc bulging is present with anterior thecal sac flattening. Facet hypertrophy is posteri or lateral thecal sac compression. No spinal canal stenosis is evident. No spinal canal stenosis or n eural foraminal stenosis is present L4-L5: Loss of disc height at the L4-5 level. Posterior endplate spurring is present with anterior th ecal sac impression. 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 L5-S1: No focal disc herniation or significant disc bulge is evident. IMPRESSION: 1. Superior endplate compression deformity L3 can be acute. No posterior wall displacement evident. 2. Disc bulging L3-4 with anterior thecal sac flattening.
[2023-05-30] MEDS ORDERED: DEXTROSE 50% SYRINGE 50 ML IVP PRN ×2 (16:35)
[2023-05-30] MEDS ORDERED: ACETAMINOPHEN TAB 325 MG TAB PO PRN (16:37)
[2023-05-30] MEDS: INSULIN ASPART (NovoLOG) 100 UNIT/ML VIAL SQ SCH ×2 (18:47→20:07)
[2023-05-30 18:52] LABS: Glucose,Whole Blood 185 mg/dL (70-110)
[2023-05-30 19:49] LABS: Glucose,Whole Blood 213 mg/dL (70-110)
[2023-05-30] MEDS: ATORVASTATIN 80 MG TAB PO SCH (20:08)
[2023-05-31 01:08] LABS: Glucose,Whole Blood 198 mg/dL (70-110)
[2023-05-31] MEDS: INSULIN ASPART (NovoLOG) 100 UNIT/ML VIAL SQ SCH ×6 (01:17→21:27)
[2023-05-31 04:09] LABS: Glucose,Whole Blood 231 mg/dL (70-110)
[2023-05-31 04:30] LABS: Bacteria,Urine Rare /hpf; Mucus,Urine Rare /hpf; RBC,Urine 2 /hpf (0-5); Squamous Epithelial Cell,Urine 9 /hpf (0-4); WBC,Urine 11 /hpf (0-5)
[2023-05-31 04:31] LABS: Appearance,Urine Clear (Clear); Color,Urine Light Orange; Glucose,Urine (UA) 2+ (Negative); Protein,Urine 1+ (Negative); Specific Gravity,Urine 1.025 (1.001-1.035)
[2023-05-31 04:32] LABS: Amphetamine Screen,Urine Not Detected (NotDetected); Barbiturate Screen,Urine Not Detected (NotDetected); Benzodiazepines Screen,Urine Not Detected (NotDetected); Bilirubin,Urine Negative (Negative); Blood,Urine Negative (Negative); Cocaine Screen,Urine Not Detected (NotDetected); Ketones,Urine 1+ (Negative); Leukocyte Esterase,Urine Moderate (Negative); Methadone Screen, Urine Not Detected (NotDetected); Nitrite,Urine Negative (Negative); Opiate Screen,Urine Not Detected (NotDetected); Oxycodone Screen, Urine Not Detected (NotDetected); Phencyclidine Screen,Urine Not Detected (NotDetected); Tricyclic Antidepressant,Urine Detected (NotDetected); Urn Cannabinoid Scrn Not Detected (NotDetected); Urobilinogen,Urine <2.0 mg/dL (<2.0)
--- NOTE | 2023-05-31 08:34 | P.HPIM ---
History of Present Illness H&P Date: 05/31/23 Chief Complaint: fall This is a 72-year-old female with a past medical history for diabetes, hyperlipidemia, and arthritis who presented to the emergency department via EMS after a fall. Patient fell in her laundry room after losing her balance and fell to her right side hitting her head. Patient reports she did not lose consciousness. She does have right hip pain. She was able to crawl and call for help. On the way to the hospital patient did have a transient episode of dysarthia and right-sided facial droop. Per patient she does have a baseline mild right facial droop with smiling. While in the ER yesterday patient had another transient episode of dysarthria and facial droop. Code stroke was called and patient was given aspirin and Plavix. She was not a candidate for TPA and her symptoms resolved quickly. Ortho workup showed superior endplate compression deformity L3 and disc bulging L3-4 with anterior L thecal sac flattening. Orthopedics have been consulted as well as neurology. She is seen this morning laying on stretcher in the emergency room. She is reporting right hip pain. No neuro deficits noted at this time. She is alert and oriented to person place and time. Review of Systems Constitutional: Denies chills, Denies fever Cardiovascular: Denies chest pain, Denies dyspnea on exertion Respiratory: Denies cough, Denies dyspnea Gastrointestinal: Denies abdominal pain, Denies nausea, Denies vomiting Musculoskeletal: Reports as per HPI, Denies arm numbness/tingling, Denies leg numbness/tingling Musculoskeletal: right: hip pain Neurological: Denies headaches, Denies visual changes Past Medical History Past Medical History: Diabetes Mellitus, Hyperlipidemia, Osteoarthritis (OA) Additional Past Medical History / Comment(s): GOUT, ATHRITIS,lt elbow and lower back bone spur, wound 3rd toe rt foot History of Any Multi-Drug Resistant Organisms: None Reported Past Surgical History: Cholecystectomy, Hysterectomy Additional Past Surgical History / Comment(s): SX FOR GLAUCOMA, SURGERY FOR RECTAL ABSCESS Past Anesthesia/Blood Transfusion Reactions: No Reported Reaction Past Psychological History: Anxiety Past Alcohol Use History: None Reported Past Drug Use History: None Reported - Past Family History Father Family Medical History: CVA/TIA, Hypertension Additional Family Medical History / Comment(s): AT AGE 95- NEVER TOOK ANY PRESCRIPTION MEDS UNTIL AGE 85 Mother Family Medical History: Congestive Heart Failure (CHF), Diabetes Mellitus, Myocardial Infarction ([place]) Additional Family Medical History / Comment(s): AT AGE 73-from [place] Medications and Allergies Home Medications Medication Instructions Recorded Confirmed Type Atorvastatin [Lipitor] 20 mg PO HS 01/10/18 05/30/23 History PARoxetine [Paxil] 20 mg PO DAILY 01/10/18 05/30/23 History diphenhydrAMINE [Benadryl] 25 mg PO BID 01/10/18 05/30/23 History Cyclobenzaprine [Flexeril] 10 mg PO BID PRN 05/30/23 05/30/23 History metFORMIN HCL ER [Glucophage XR] 1,000 mg PO BID 05/30/23 05/30/23 History Allergies Allergy/AdvReac Type Severity Reaction Status Date / Time Penicillins Allergy Swelling Verified 05/30/23 16:52 face sulfamethoxazole AdvReac shaking Verified 05/30/23 16:52 [From Bactrim] trimethoprim [From Bactrim] AdvReac shaking Verified 05/30/23 16:52 Physical Exam Vitals: Vital Signs Temp Pulse Resp BP Pulse Ox 05/31/23 06:28 104 H 16 176/73 96 05/31/23 04:00 111 H 20 158/83 95 05/31/23 00:00 108 H 18 155/79 95 05/30/23 19:20 103 H 19 166/69 97 05/30/23 17:47 104 H 18 157/88 98 05/30/23 12:59 98.8 F 110 H 19 144/104 98 - Constitutional General appearance: cooperative, no acute distress - EENT Eyes: PERRLA - Neck Neck: no lymphadenopathy, normal ROM, no rigidity - Respiratory Respiratory: bilateral: CTA - Cardiovascular Rhythm: regular Heart sounds: normal: S1, S2 - Gastrointestinal General gastrointestinal: soft, no tenderness - Integumentary Integumentary: normal, normal turgor - Neurologic Neurologic: CNII-XII intact - Psychiatric Psychiatric: A&O x's 3, appropriate affect, intact judgment & insight Results CBC & Chem 7: 05/30/23 13:03 05/30/23 13:03 Labs: Abnormal Lab Results - Last 24 Hours (Table) 05/30/23 05/30/23 05/30/23 Range/Units 12:58 13:03 13:03 WBC 17.3 H (3.8-10.6) k/uL Neutrophils # 14.1 H (1.3-7.7) k/uL APTT 20.7 L (22.0-30.0) sec Sodium (137-145) mmol/L Carbon Dioxide (22-30) mmol/L Glucose (74-99) mg/dL POC Glucose (mg/dL) 236 H (70-110) mg/dL Urine Protein (Negative) Urine WBC (0-5) /hpf Ur Squamous Epith Cells (0-4) /hpf Urine Bacteria (None) /hpf Urine Mucus (None) /hpf U Tricyclic Antidepress (NotDetected) 05/30/23 05/30/23 05/30/23 Range/Units 13:03 14:46 18:44 WBC (3.8-10.6) k/uL Neutrophils # (1.3-7.7) k/uL APTT (22.0-30.0) sec Sodium 136 L (137-145) mmol/L Carbon Dioxide 21 L (22-30) mmol/L Glucose 235 H (74-99) mg/dL POC Glucose (mg/dL) 210 H 185 H (70-110) mg/dL Urine Protein (Negative) Urine WBC (0-5) /hpf Ur Squamous Epith Cells (0-4) /hpf Urine Bacteria (None) /hpf Urine Mucus (None) /hpf U Tricyclic Antidepress (NotDetected) 05/30/23 05/31/23 05/31/23 Range/Units 19:47 01:06 04:00 WBC (3.8-10.6) k/uL Neutrophils # (1.3-7.7) k/uL APTT (22.0-30.0) sec Sodium (137-145) mmol/L Carbon Dioxide (22-30) mmol/L Glucose (74-99) mg/dL POC Glucose (mg/dL) 213 H 198 H (70-110) mg/dL Urine Protein 1+ H (Negative) Urine WBC 11 H (0-5) /hpf Ur Squamous Epith Cells 9 H (0-4) /hpf Urine Bacteria Rare H (None) /hpf Urine Mucus Rare H (None) /hpf U Tricyclic Antidepress Detected H (NotDetected) 05/31/23 Range/Units 04:06 WBC (3.8-10.6) k/uL Neutrophils # (1.3-7.7) k/uL APTT (22.0-30.0) sec Sodium (137-145) mmol/L Carbon Dioxide (22-30) mmol/L Glucose (74-99) mg/dL POC Glucose (mg/dL) 231 H (70-110) mg/dL Urine Protein (Negative) Urine WBC (0-5) /hpf Ur Squamous Epith Cells (0-4) /hpf Urine Bacteria (None) /hpf Urine Mucus (None) /hpf U Tricyclic Antidepress (NotDetected) Assessment and Plan (1) Fall Current Visit: Yes Status: Acute Code(s): W19.XXXA - UNSPECIFIED FALL, INITIAL ENCOUNTER SNOMED Code(s): 3073317 (2) Lumbar compression fracture Current Visit: Yes Status: Acute Code(s): S32.000A - WEDGE COMPRESSION FRACTURE OF UNSP LUMBAR VERTEBRA, INIT SNOMED Code(s): 104289415 (3) Diabetes Current Visit: Yes Status: Acute Code(s): E11.9 - TYPE 2 DIABETES MELLITUS WITHOUT COMPLICATIONS SNOMED Code(s): 02687087 (4) Hyperlipemia Current Visit: Yes Status: Acute Code(s): E78.5 - HYPERLIPIDEMIA, UNSPECIFIED SNOMED Code(s): 77962821 (5) TIA (transient ischemic attack) Current Visit: Yes Status: Acute Code(s): G45.9 - TRANSIENT CEREBRAL ISCHEMIC ATTACK, UNSPECIFIED SNOMED Code(s): 498369178 Plan: Home medications reconciled. Order [place] 5 for pain Check CBC and CMP in the morning. Appreciate input from orthopedics and neurology. Patient seen and evaluated by nurse practitioner, physician in agreement with plan
[2023-05-31 08:46] LABS: Glucose,Whole Blood 209 mg/dL (70-110)
[2023-05-31] MEDS: PARoxetine 20 MG TAB PO SCH (08:59)
[2023-05-31] MEDS: CYCLOBENZAPRINE 10 MG TAB PO PRN (08:59)
[2023-05-31] MEDS: metFORMIN 500 MG TAB PO SCH ×2 (08:59→17:52)
[2023-05-31] MEDS: HYDROcodone/APAP 5-325MG 1 EACH TAB PO PRN (08:59)
[2023-05-31] MEDS: diphenhydrAMINE 25 MG CAP PO SCH ×2 (10:36→21:28)
[2023-05-31 11:23] LABS: Chol/HDL Ratio 3.16 Ratio; LDL Cholesterol,Calculated 3.4 mg/dL (0.0-131.0)
--- NOTE | 2023-05-31 12:29 | P.CNNES ---
History of Present Illness Consult date: 05/31/23 Requesting physician: Marc Schaffer Reason for Consult: tia History of Present Illness: This is a 72-year-old woman who presented emergency department because of a fall as well as slurred speech with right facial droop. Patient is accompanied with her son. Patient stated that that yesterday he was in her house and stride to get her she was off but got tangled up on the right lower extremity and cannot get the right shoe off as a result she fell and hit the back of her head but did not lose any consciousness. After the episode she had transient episodes of slurring the speech lasting up to 4 minutes and the has worsening of the right facial droop from her baseline. She had another episode of slurring her speech. She denies any history of stroke or TIA. Denies being on any antiplatelet. She has lower back pain that radiates up to the right posterior thigh up to the knee. Denies of any numbness tingling. Denies any further slurring of the speech. Some of the workup during his hospital visit consisted of: Lipid panel is triglycerides 229, cholesterol 72, LDL is 3.4 and HDL is 22. Hemoglobin A1c 7.7. CT of the head is reported as no acute intracranial process. I reviewed the CT and I agree with the report. CT cervical spine is reported as no acute osseous abnormalities cervical spine. CT lumbar reported as appearing endplate compression deformity L3 can be acute. No posterior wall displacement evident. Disc bulging L3-L4 with anterior thecal sac flattening. CT angiography of the head and neck is reported as no evidence of dissection of the cervical internal carotid artery or vertebral artery or any evidence of significant stenosis at the carotid bifurcation. No evidence of intracranial high-grade stenosis or intracranial aneurysm. Review of Systems The positive and negative as per HPI. Past Medical History Past Medical History: Diabetes Mellitus, Hyperlipidemia, Osteoarthritis (OA) Additional Past Medical History / Comment(s): GOUT, ATHRITIS,lt elbow and lower back bone spur, wound 3rd toe rt foot History of Any Multi-Drug Resistant Organisms: None Reported Past Surgical History: Cholecystectomy, Hysterectomy Additional Past Surgical History / Comment(s): SX FOR GLAUCOMA, SURGERY FOR RECTAL ABSCESS Past Anesthesia/Blood Transfusion Reactions: No Reported Reaction Past Psychological History: Anxiety Past Alcohol Use History: None Reported Past Drug Use History: None Reported - Past Family History Father Family Medical History: CVA/TIA, Hypertension Additional Family Medical History / Comment(s): AT AGE 95- NEVER TOOK ANY PRESCRIPTION MEDS UNTIL AGE 85 Mother Family Medical History: Congestive Heart Failure (CHF), Diabetes Mellitus, Myocardial Infarction ([place]) Additional Family Medical History / Comment(s): AT AGE 73-from [place] Medications and Allergies Home Medications Medication Instructions Recorded Confirmed Type Atorvastatin [Lipitor] 20 mg PO HS 01/10/18 05/30/23 History PARoxetine [Paxil] 20 mg PO DAILY 01/10/18 05/30/23 History diphenhydrAMINE [Benadryl] 25 mg PO BID 01/10/18 05/30/23 History Cyclobenzaprine [Flexeril] 10 mg PO BID PRN 05/30/23 05/30/23 History metFORMIN HCL ER [Glucophage XR] 1,000 mg PO BID 05/30/23 05/30/23 History Allergies Allergy/AdvReac Type Severity Reaction Status Date / Time Penicillins Allergy Swelling Verified 05/30/23 16:52 face sulfamethoxazole AdvReac shaking Verified 05/30/23 16:52 [From Bactrim] trimethoprim [From Bactrim] AdvReac shaking Verified 05/30/23 16:52 Physical Examination - Vital Signs Vital Signs: Vital Signs Temp Pulse Resp BP Pulse Ox 05/31/23 10:34 109 H 22 158/85 99 05/31/23 09:00 98.0 F 97 18 176/70 05/31/23 06:28 104 H 16 176/73 96 05/31/23 04:00 111 H 20 158/83 95 05/31/23 00:00 108 H 18 155/79 95 05/30/23 19:20 103 H 19 166/69 97 05/30/23 17:47 104 H 18 157/88 98 05/30/23 12:59 98.8 F 110 H 19 144/104 98 GENERAL: The patient is lying in bed and is not in acute distress. HENT: Supple neck. NEUROLOGICAL: Higher mental function: The patient is awake, alert, oriented to self, place and time. Patient is following commands. No aphasia and no neglect. Cranial nerves: The pupils are round, equal and reactive to light and accommodation. Visual rivera are full to confrontation throughout. Extraocular movement is intact no nystagmus is noted. Facial sensation is normal to touch throughout. The facial strength is normal throughout. Hearing is mild to moderately decreased bilaterally to hand rub. Tongue is midline and moved [id number] without any difficulty. No dysarthria is noted. Shoulder shrug is normal bilaterally. Motor: The strength is right lower extremity is limited because of pain but has antigravity. Otherwise 5 over 5 throughout. Normal tone and bulk. Cerebellum: Normal finger to nose bilaterally. Sensation: Sensation is normal to touch throughout. Reflexes (right/left): 2+ uppers as well left lower but refused right lower because of pain. Plantars are downgoing bilaterally. Results - Laboratory Findings CBC and BMP: 05/30/23 13:03 05/30/23 13:03 Abnormal Lab Findings: Abnormal Labs 05/30/23 05/30/23 05/30/23 12:58 13:03 13:03 WBC 17.3 H Neutrophils # 14.1 H APTT 20.7 L Sodium Carbon Dioxide Glucose POC Glucose (mg/dL) 236 H Hemoglobin A1c Triglycerides VLDL Cholesterol, Calc HDL Cholesterol Urine Protein Urine WBC Ur Squamous Epith Cells Urine Bacteria Urine Mucus U Tricyclic Antidepress 05/30/23 05/30/23 05/30/23 13:03 13:03 13:03 WBC Neutrophils # APTT Sodium 136 L Carbon Dioxide 21 L Glucose 235 H POC Glucose (mg/dL) Hemoglobin A1c 7.7 H Triglycerides 229.00 H VLDL Cholesterol, Calc 45.80 H HDL Cholesterol 22.80 L Urine Protein Urine WBC Ur Squamous Epith Cells Urine Bacteria Urine Mucus U Tricyclic Antidepress 05/30/23 05/30/23 05/30/23 14:46 18:44 19:47 WBC Neutrophils # APTT Sodium Carbon Dioxide Glucose POC Glucose (mg/dL) 210 H 185 H 213 H Hemoglobin A1c Triglycerides VLDL Cholesterol, Calc HDL Cholesterol Urine Protein Urine WBC Ur Squamous Epith Cells Urine Bacteria Urine Mucus U Tricyclic Antidepress 05/31/23 05/31/23 05/31/23 01:06 04:00 04:06 WBC Neutrophils # APTT Sodium Carbon Dioxide Glucose POC Glucose (mg/dL) 198 H 231 H Hemoglobin A1c Triglycerides VLDL Cholesterol, Calc HDL Cholesterol Urine Protein 1+ H Urine WBC 11 H Ur Squamous Epith Cells 9 H Urine Bacteria Rare H Urine Mucus Rare H U Tricyclic Antidepress Detected H 05/31/23 08:44 WBC Neutrophils # APTT Sodium Carbon Dioxide Glucose POC Glucose (mg/dL) 209 H Hemoglobin A1c Triglycerides VLDL Cholesterol, Calc HDL Cholesterol Urine Protein Urine WBC Ur Squamous Epith Cells Urine Bacteria Urine Mucus U Tricyclic Antidepress Assessment and Plan Assessment: This is a 72-year-old woman who presented to the emergency department because of mechanical fall. Post fall she noticed that she had worsening of the right lower facial droop and dysarthria. She is having the back pain radiating the posterior thigh up to the knee. Transient episode of dysarthria with worsening of the right facial droop: Probable TIA. I cannot exclude head concussion masking patient's neurological symptoms Compression fracture over the L3 on the CT. Right lumbar radiculopathy Diabetes mellitus and hemoglobin A1c 7.7 Dyslipidemia Plan: In the ED the patient was given aspirin 325 once Plavix 300 mg once. I started the patient on aspirin 81 mg daily (was not on antiplatlelets prior to this) Is on Lipitor 80 mg daily at bedtime. MRI of the brain is ordered and pending. I ordered 2-D echo, TSH. PT OT and BIOMEDICAL PHOTOGRAPHER are consulted Continue Cardiac monitoring Orthopedic surgery team is consulted We'll defer the rest of the medical management to primary team For DVT prophylaxis I start the patient on subcu heparin 5000 units every 12 hours The plan is discussed with patient, her son who is at bedside. Thank you for the consultation. Time with Patient: Greater than 30
[2023-05-31 12:34] LABS: Glucose,Whole Blood 178 mg/dL (70-110)
[2023-05-31 14:58] LABS: Glucose,Whole Blood 202 mg/dL (70-110)
--- NOTE | 2023-05-31 15:44 | P.CNOR ---
History of Present Illness - HPI Consult date: 05/31/23 History of present illness: This is a 72-year-old female who is admitted for compression fracture after a fall and also for evaluation of a possible TIA. Patient states that she has had 2 falls over the last 2 weeks and now has lower back pain with radiation to the right knee. Patient states that her most recent fall happened when she lost her balance trying to get her shoes off. Patient states that she fell on the lower back. Patient states that she was having some radiation of pain from the lower back to her right knee prior to her falls, but this is worse now. Patient states that she has been able to ambulate to the bathroom and back during this admission. Patient states that she does live along in a one-story house. Patient denies any numbness, tingling or weakness of the extremities. Patient's past medical history significant for diabetes mellitus, hyperlipidemia and osteoarthritis. Review of Systems See HPI. Past Medical History Past Medical History: Diabetes Mellitus, Hyperlipidemia, Osteoarthritis (OA) Additional Past Medical History / Comment(s): GOUT, ATHRITIS,lt elbow and lower back bone spur, wound 3rd toe rt foot History of Any Multi-Drug Resistant Organisms: None Reported Past Surgical History: Cholecystectomy, Hysterectomy Additional Past Surgical History / Comment(s): SX FOR GLAUCOMA, SURGERY FOR RECTAL ABSCESS Past Anesthesia/Blood Transfusion Reactions: No Reported Reaction Past Psychological History: Anxiety Past Alcohol Use History: None Reported Past Drug Use History: None Reported - Past Family History Father Family Medical History: CVA/TIA, Hypertension Additional Family Medical History / Comment(s): AT AGE 95- NEVER TOOK ANY PRESCRIPTION MEDS UNTIL AGE 85 Mother Family Medical History: Congestive Heart Failure (CHF), Diabetes Mellitus, Myocardial Infarction ([place]) Additional Family Medical History / Comment(s): AT AGE 73-from [place] Medications and Allergies Home Medications Medication Instructions Recorded Confirmed Type Atorvastatin [Lipitor] 20 mg PO HS 01/10/18 05/30/23 History PARoxetine [Paxil] 20 mg PO DAILY 01/10/18 05/30/23 History diphenhydrAMINE [Benadryl] 25 mg PO BID 01/10/18 05/30/23 History Cyclobenzaprine [Flexeril] 10 mg PO BID PRN 05/30/23 05/30/23 History metFORMIN HCL ER [Glucophage XR] 1,000 mg PO BID 05/30/23 05/30/23 History Allergies Allergy/AdvReac Type Severity Reaction Status Date / Time Penicillins Allergy Swelling Verified 05/30/23 16:52 face sulfamethoxazole AdvReac shaking Verified 05/30/23 16:52 [From Bactrim] trimethoprim [From Bactrim] AdvReac shaking Verified 05/30/23 16:52 Physical Examination On exam patient is resting comfortably in bed in no acute distress. Patient is alert and oriented 3. There is tenderness to palpation over the lumbar midline. Skin is intact. There is no erythema or ecchymosis. Patient is able to sit up in bed and roll to the side. Patient moves bilateral upper and lower extremities freely. Sensation intact to bilateral lower extremities. Patient has some pain in the right lower extremity with straight leg raise. No pain with straight leg raise of the left lower extremity. Patient has full range of motion of bilateral feet and ankles. EHL intact bilaterally. No pain with full range of motion of the right knee. Bilateral lower extremities are warm and well perfused. Results A CT report of the lumbar spine is reviewed showin. Superior endplate compression deformity L3 can be acute. No posterior wall displacement evident. 2. Disc bulging L3-4 with anterior thecal sac flattening. - Labs Labs: Abnormal Lab Results - Last 24 Hours (Table) 05/30/23 05/30/23 05/30/23 Range/Units 13:03 13:03 14:46 POC Glucose (mg/dL) 210 H (70-110) mg/dL Hemoglobin A1c 7.7 H (<=6.0) % Triglycerides 229.00 H (0.00-149.00) mg/dL VLDL Cholesterol, Calc 45.80 H (5.00-40.00) mg/dL HDL Cholesterol 22.80 L (40.00-60.00) mg/dL Urine Protein (Negative) Urine WBC (0-5) /hpf Ur Squamous Epith Cells (0-4) /hpf Urine Bacteria (None) /hpf Urine Mucus (None) /hpf U Tricyclic Antidepress (NotDetected) 05/30/23 05/30/23 05/31/23 Range/Units 18:44 19:47 01:06 POC Glucose (mg/dL) 185 H 213 H 198 H (70-110) mg/dL Hemoglobin A1c (<=6.0) % Triglycerides (0.00-149.00) mg/dL VLDL Cholesterol, Calc (5.00-40.00) mg/dL HDL Cholesterol (40.00-60.00) mg/dL Urine Protein (Negative) Urine WBC (0-5) /hpf Ur Squamous Epith Cells (0-4) /hpf Urine Bacteria (None) /hpf Urine Mucus (None) /hpf U Tricyclic Antidepress (NotDetected) 05/31/23 05/31/23 05/31/23 Range/Units 04:00 04:06 08:44 POC Glucose (mg/dL) 231 H 209 H (70-110) mg/dL Hemoglobin A1c (<=6.0) % Triglycerides (0.00-149.00) mg/dL VLDL Cholesterol, Calc (5.00-40.00) mg/dL HDL Cholesterol (40.00-60.00) mg/dL Urine Protein 1+ H (Negative) Urine WBC 11 H (0-5) /hpf Ur Squamous Epith Cells 9 H (0-4) /hpf Urine Bacteria Rare H (None) /hpf Urine Mucus Rare H (None) /hpf U Tricyclic Antidepress Detected H (NotDetected) 05/31/23 Range/Units 12:32 POC Glucose (mg/dL) 178 H (70-110) mg/dL Hemoglobin A1c (<=6.0) % Triglycerides (0.00-149.00) mg/dL VLDL Cholesterol, Calc (5.00-40.00) mg/dL HDL Cholesterol (40.00-60.00) mg/dL Urine Protein (Negative) Urine WBC (0-5) /hpf Ur Squamous Epith Cells (0-4) /hpf Urine Bacteria (None) /hpf Urine Mucus (None) /hpf U Tricyclic Antidepress (NotDetected) H & H 05/30/23 Range/Units 13:03 Hgb 15.0 (11.4-16.0) gm/dL Hct 43.6 (34.0-46.0) % Coagulation 05/30/23 Range/Units 13:03 INR 1.0 (<1.2) Result Diagrams: 05/30/23 13:03 05/30/23 13:03 Assessment and Plan (1) Fall Current Visit: Yes Status: Acute Code(s): W19.XXXA - UNSPECIFIED FALL, INITIAL ENCOUNTER SNOMED Code(s): 5966120 (2) Lumbar compression fracture Current Visit: Yes Status: Acute Code(s): S32.000A - WEDGE COMPRESSION FRACTURE OF UNSP LUMBAR VERTEBRA, INIT SNOMED Code(s): 127406205 Plan: 1. CT is reviewed. Recommend an LSO brace to be worn when the patient is out of bed. 2. Continue pain control. 3. No surgical intervention planned. We will continue to follow.
[2023-05-31 17:38] LABS: Glucose,Whole Blood 182 mg/dL (70-110)
[2023-05-31 21:19] LABS: Glucose,Whole Blood 201 mg/dL (70-110)
[2023-05-31] MEDS: ATORVASTATIN 80 MG TAB PO SCH (21:28)
[2023-06-01] MEDS: INSULIN ASPART (NovoLOG) 100 UNIT/ML VIAL SQ SCH ×6 (03:59→20:56)
[2023-06-01 05:02] LABS: Glucose,Whole Blood 200 mg/dL (70-110)
[2023-06-01] MEDS: metFORMIN 500 MG TAB PO SCH ×2 (07:41→18:02)
[2023-06-01 08:08] LABS: Glucose,Whole Blood 220 mg/dL (70-110)
[2023-06-01] MEDS: ASPIRIN 81 MG PO SCH (08:15)
[2023-06-01] MEDS: PARoxetine 20 MG TAB PO SCH (08:16)
[2023-06-01] MEDS: diphenhydrAMINE 25 MG CAP PO SCH ×2 (08:16→20:57)
[2023-06-01] MEDS ORDERED: LORazepam 1 MG TAB PO STA (08:26)
--- NOTE | 2023-06-01 08:29 | P.PN ---
Subjective Progress Note Date: 06/01/23 Principal diagnosis: . Superior endplate fracture the lumbar spine with TIA history with fall. The patient is 72-year-old white female who fell while doing laundry. The patient's back has been hurting but she seems much more comfortable this morning than yesterday less anxious. MRI is pending. Appreciate orthopedic input. No surgical intervention at this time as required. Neurology workup is pending. Mentally the patient seems back to her normal baseline. No numbness or tingling. No headache. Objective - Vital Signs Vital signs: Vital Signs Temp 98.7 F 06/01/23 07:40 Pulse 109 H 06/01/23 07:40 Resp 18 06/01/23 07:40 BP 128/94 06/01/23 07:40 Pulse Ox 99 06/01/23 07:40 FiO2 - Constitutional General appearance: Present: cooperative, obese - EENT Eyes: Absent: abnormal pupil, anicteric sclerae - Neck Neck: Absent: lymphadenopathy - Respiratory Respiratory: bilateral: CTA - Cardiovascular Rhythm: regular Heart sounds: normal: S1, S2 Abnormal Heart Sounds: Absent: S3 Gallop - Gastrointestinal General gastrointestinal: Present: soft. Absent: tenderness - Psychiatric Psychiatric: Present: A&O x's 3 - Labs CBC & Chem 7: 05/30/23 13:03 05/30/23 13:03 Labs: Abnormal Lab Results - Last 24 Hours (Table) 05/30/23 05/30/23 05/31/23 Range/Units 13:03 13:03 08:44 POC Glucose (mg/dL) 209 H (70-110) mg/dL Hemoglobin A1c 7.7 H (<=6.0) % Triglycerides 229.00 H (0.00-149.00) mg/dL VLDL Cholesterol, Calc 45.80 H (5.00-40.00) mg/dL HDL Cholesterol 22.80 L (40.00-60.00) mg/dL 05/31/23 05/31/23 05/31/23 Range/Units 12:32 14:57 17:35 POC Glucose (mg/dL) 178 H 202 H 182 H (70-110) mg/dL Hemoglobin A1c (<=6.0) % Triglycerides (0.00-149.00) mg/dL VLDL Cholesterol, Calc (5.00-40.00) mg/dL HDL Cholesterol (40.00-60.00) mg/dL 05/31/23 06/01/23 06/01/23 Range/Units 21:16 05:00 08:07 POC Glucose (mg/dL) 201 H 200 H 220 H (70-110) mg/dL Hemoglobin A1c (<=6.0) % Triglycerides (0.00-149.00) mg/dL VLDL Cholesterol, Calc (5.00-40.00) mg/dL HDL Cholesterol (40.00-60.00) mg/dL Assessment and Plan (1) Diabetes Current Visit: Yes Status: Acute Code(s): E11.9 - TYPE 2 DIABETES MELLITUS WITHOUT COMPLICATIONS SNOMED Code(s): 36667615 (2) Fall Current Visit: Yes Status: Acute Code(s): W19.XXXA - UNSPECIFIED FALL, INITIAL ENCOUNTER SNOMED Code(s): 5780328 (3) Hyperlipemia Current Visit: Yes Status: Acute Code(s): E78.5 - HYPERLIPIDEMIA, UNSPECIFIED SNOMED Code(s): 09237328 (4) Lumbar compression fracture Current Visit: Yes Status: Acute Code(s): S32.000A - WEDGE COMPRESSION FRACTURE OF UNSP LUMBAR VERTEBRA, INIT SNOMED Code(s): 557927870 (5) TIA (transient ischemic attack) Current Visit: Yes Status: Acute Code(s): G45.9 - TRANSIENT CEREBRAL ISCHEMIC ATTACK, UNSPECIFIED SNOMED Code(s): 041022242 Plan: MRI pending. Hopefully we can discharge in next 24 hours if neurologically stable. We'll sent home on appropriate pain control for the next several weeks. We'll continue to follow.
--- NOTE | 2023-06-01 08:45 | P.PN ---
Progress Note - Text Progress Note Date: 06/01/23 Orthopedic spine: History of present illness: Patient is a pleasant 72-year-old female who is seen and examined at bedside for follow-up evaluation for her known L3 compression fracture deformity. She is still in the emergency department pending placement to [facility] care. She is known to have sustained 2 falls over the past 2 weeks. She does continue to have some pain at the fracture site of L3. She also experiences right lower extremity radiculopathy radiating down the right posterior thigh. These symptoms were present prior to her falls but have worsened since that time. He states after her first fall she experienced left lower extremity radiculopathy. After the second fall, her left lower extremity radiculopathy improved but now she has some pain radiating down the right lower extremity. She feels her back pain is controlled at rest. It is exacerbated with any sort increased activities. She is answering questions well at the bedside today. She does not have obvious facial droop. Her son is at the bedside as well. She does not have slurred speech. He states patient looks dramatically better today as compared to yesterday. She has been seen and examined by neurology. Neurology has ordered a brain MRI along with 2-D echocardiogram and TSH labs. They are continuing to monitor the patient for transient episode of dysarthria with worsening right facial droop, probable TIA. She is scheduled for MRI imaging today at 10:15 AM. Physical exam: Patient is awake, alert, and oriented 3 Vital signs stable Good chest excursion with deep inspiration and expiration Examination of lumbar spine reveals skin is intact with no abrasions, lacerations, or bruises; no erythema, purulence or signs of infection Some pain with palpation along the midline of the mid lumbar spine Dorsiflexion, plantarflexion, and extensor hallucis longus positive sustained bilaterally Lower extremity strength 5/5 bilaterally No lower extremity hyperreflexia bilaterally Straight leg test negative bilateral lower extremities Negative Lasegue's test bilaterally No signs or symptoms of DVT; no calf pain No pain with internal and external rotation of the hips bilaterally Neurovascularly intact Pertinent studies: CT of the lumbar spine taken on 05/30/2023: L3 superior endplate compression fracture deformity approximate 20% height loss; L3-4 disc bulge and facet hypertrophy with some thecal sac compression Assessment: Acute traumatic L3 compression fracture deformity status post fall L3-4 disc bulge L3-4 facet hypertrophy Right lower extremity radiculopathy Transient episode of dysarthria with worsening right facial droop, probable TIA Diabetes mellitus Dyslipidemia Plan: 1. Patient is known to have sustained [address] imaging does show evidence of L3 compression fracture deformity. After reviewing of imaging, physical examination the patient, and further discussion with the patient, will currently planned to have the patient start working through conservative treatment options. At this time we'll plan for bracing. A prescription has been written and provided to case management to obtain an LSO brace. Once this brace is delivered and fitted appropriately, patient should wear this brace while sitting upright at greater than 45, during increase activities, during ambulation. Brace does not have to or while lying in bed or while bathing. Following fitting of this brace, patient is clear for discharge from an orthopedic spine standpoint. Following discharge, patient may follow-up with Hunter Villagomez PA-C or Dr. Channing Crouch at [facility] in approximately 2-3 weeks. I have been able to review the images in the case. There is a compression deformity at L3. She is neurologically intact and we will plan conservative treatment with LSO bracing. From orthopedic spine standpoint is okay for her to discharge with continued conservative care and follow-up on an outpatient basis. She is continue her management for her medical issues currently. 2. Patient will continue to be seen and examined by multiple other medical providers multiple other medical diagnoses including medicine and neurology
[2023-06-01 09:12] LABS: HCT 42.2 % (34.0-46.0); HGB 13.9 gm/dL (11.4-16.0); Mean Platelet Volume 8.1; Platelet Count 252 k/uL (150-450); RBC 4.49 m/uL (3.80-5.40); RDW 12.3 % (11.5-15.5); WBC 10.2 k/uL (3.8-10.6)
[2023-06-01 09:30] LABS: ALT 21 U/L (4-34); AST 28 U/L (14-36); African American GFR (CKD) >90 (>60 ml/min/1.73 sqM); Albumin 3.7 g/dL (3.5-5.0); Alkaline Phosphatase 100 U/L (38-126); Anion Gap 15 mmol/L; Blood Urea Nitrogen 15 mg/dL (7-17); Calcium 9.6 mg/dL (8.4-10.2); Carbon Dioxide 21 mmol/L (22-30); Chloride 100 mmol/L (98-107); Glucose 216 mg/dL (74-99); Non-African American GFR(CKD) 86 (>60 ml/min/1.73 sqM); Potassium 4.1 mmol/L (3.5-5.1); Sodium 136 mmol/L (137-145); Total Bilirubin 0.6 mg/dL (0.2-1.3); Total Protein 6.2 g/dL (6.3-8.2)
--- NOTE | 2023-06-01 10:11 | CA ---
Transthoracic Echo Report Name: Tiffanie Hooker Age: 72 Gender: F : 1950 Exam Date: 05/31/2023 16:33 Exam Location: [facility] Ht (in): 66 Wt (lb): 233 Ordering Physician: Kole Duffy MD Attending/Referring Phys: Business Support Professional Gerber Aviles Procedure CPT: Indications: stroke Cardiac Hx: Technical Quality: Technically difficult study Contrast 1: Definity Total Dose (mL): 2 Contrast 2: Total Dose (mL): MEASUREMENTS (Male / Female) Normal Values 2D ECHO LV Diastolic Diameter PLAX 3.6 cm 4.2 - 5.9 / 3.9 - 5.3 cm LV Systolic Diameter PLAX 2.6 cm IVS Diastolic Thickness 1.6 cm 0.6 - 1.0 / 0.6 - 0.9 cm LVPW Diastolic Thickness 0.9 cm 0.6 - 1.0 / 0.6 - 0.9 cm LV Relative Wall Thickness 0.7 RV Internal Dim ED PLAX 2.3 cm LVOT Diameter 1.8 cm Aortic Root Diameter 2.6 cm LA Systolic Diameter LX 2.4 cm 3.0 - 4.0 / 2.7 - 3.8 cm LV Diastolic Volume MOD BP 56.0 cm??? 67 - 155 / 56 - 104 cm??? LV Systolic Volume MOD BP 31.0 cm??? - / 19 - 49 cm??? LV Ejection Fraction MOD BP 44.6 % >= 55 % LV Cardiac Index MOD BP 1222.7 cm???/min???m??? LV Diastolic Volume MOD 4C 67.6 cm??? LV Systolic Volume MOD 4C 35.3 cm??? LV Ejection Fraction MOD 4C 47.7 % LV Cardiac Index MOD 4C 1579.1 cm???/min???m??? LV Diastolic Length 4C 7.1 cm LV Systolic Length 4C 6.5 cm LV Diastolic Volume MOD 2C 46.2 cm??? LV Systolic Volume MOD 2C 25.6 cm??? LV Ejection Fraction MOD 2C 44.6 % LV Cardiac Index MOD 2C 1009.7 cm???/min???m??? LV Diastolic Length 2C 7.3 cm LV Systolic Length 2C 7.1 cm LA Volume 47.1 cm??? - 58 / 22 - 52 cm??? LA Volume Index 20.8 cm???/m??? 16 - 28 cm???/m??? DOPPLER AV Peak Velocity 129.1 cm/s AV Peak Gradient 6.7 mmHg LVOT Peak Velocity 107.4 cm/s LVOT Peak Gradient 4.6 mmHg LVOT Velocity Time Integral 17.0 cm LVOT Stroke Volume 43.3 cm??? LVOT Stroke Volume Index 20.3 ml/m??? LVOT Cardiac Index 2121.8 cm???/min???m??? AV Area Cont Eq pk 2.1 cm??? MV Peak Velocity 164.2 cm/s MV Peak Gradient 10.8 mmHg MV Mean Velocity 92.4 cm/s MV Mean Gradient 4.1 mmHg MV Velocity Time Integral 28.3 cm Mitral E Point Velocity 75.4 cm/s Mitral A Point Velocity 131.4 cm/s Mitral E to A Ratio 0.6 MV Deceleration Time 139.1 ms MV E' Velocity 4.9 cm/s Mitral E to MV E' Ratio 15.3 TR Peak Velocity 131.8 cm/s TR Peak Gradient 7.0 mmHg Right Ventricular Systolic Press 12.0 mmHg PV Peak Velocity 151.7 cm/s PV Peak Gradient 9.2 mmHg FINDINGS Left Ventricle Normal LV size. Moderate concentric LVH. Left ventricular ejection fraction is estimated at 55-60 %. Right Ventricle Normal right ventricular size. Right Atrium Normal right atrial size. Left Atrium Normal left atrial size. Negative agitated saline study. Mitral Valve Mitral valve not well visualized. Grossly normal. No mitral stenosis. No mitral regurgitation. Aortic Valve Aortic valve not well visualized. No aortic regurgitation. No aortic stenosis. Tricuspid Valve Tricuspid valve not well visualized. Trace TR. Pulmonic Valve Pulmonic valve not well visualized. No pulmonic regurgitation. Pericardium Normal pericardium. Aorta Normal size aortic root. CONCLUSIONS Technically difficult study for interpretation Normal LV systolic function Previewed by: Dr. Wu Bennett MD (Electronically Signed) Final Date: 01 June 2023 10:10
--- NOTE | 2023-06-01 12:00 | MR ---
EXAMINATION TYPE: MR brain wo con DATE OF EXAM: 06/01/2023 COMPARISON: CT scan 05/30/2024 HISTORY: Fall, evaluate for TIA. TECHNIQUE: T1-weighted sagittal, T2, FLAIR, and diffusion axial, and T2 coronal coronal views of the brain are submitted. FINDINGS: There is no evidence of acute ischemia. Moderate degenerative change. Nonspecific focal areas of abno rmal signal scattered throughout the white matter bilateral cerebral hemispheres. Most typical of rem ote microvascular ischemia. Changes of mild chronic sinusitis. Orbits are symmetric. There is no mass effect. Craniocervical junction maintained. Partially empty sella turcica. No cerebellopontine angle mass. IMPRESSION: 1. No acute intracranial process 2. Degenerative and remote ischemic white matter changes.
[2023-06-01 12:08] LABS: Glucose,Whole Blood 162 mg/dL (70-110)
--- NOTE | 2023-06-01 13:02 | P.PN ---
Subjective Progress Note Date: 06/01/23 I am following-up with patient and she feels about the same. No further dysarthria or facial droop. Feels at baseline. Objective - Vital Signs Vital signs: Vital Signs Temp 98.5 F 06/01/23 11:35 Pulse 101 H 06/01/23 12:12 Resp 17 06/01/23 12:12 BP 156/84 06/01/23 11:35 Pulse Ox 100 06/01/23 12:12 FiO2 - Exam GENERAL: The patient is lying in bed and is not in acute distress. NEUROLOGICAL: Higher mental function: The patient is awake, alert, oriented to self, place and time. Patient is following commands. No aphasia and no neglect. Cranial nerves: The pupils are round, equal and reactive to light and accommodation. Visual rivera are full to confrontation throughout. Extraocular movement is intact no nystagmus is noted. Facial sensation is normal to touch throughout. The facial strength is normal throughout. Hearing is mild to moderately decreased bilaterally to hand rub. Tongue is midline and moved [id number] without any difficulty. No dysarthria is noted. Shoulder shrug is normal bilaterally. Motor: The strength is right lower extremity is limited because of pain but has antigravity. Otherwise 5 over 5 throughout. Normal tone and bulk. Cerebellum: Normal finger to nose bilaterally. Sensation: Sensation is normal to touch throughout. Reflexes (right/left): 2+ uppers as well left lower but refused right lower because of pain. Plantars are downgoing bilaterally. Some of the workup during his hospital visit consisted of: Lipid panel is triglycerides 229, cholesterol 72, LDL is 3.4 and HDL is 22. Hemoglobin A1c 7.7. TSH: 1.280 CT of the head is reported as no acute intracranial process. I reviewed the CT and I agree with the report. CT cervical spine is reported as no acute osseous abnormalities cervical spine. CT lumbar reported as appearing endplate compression deformity L3 can be acute. No posterior wall displacement evident. Disc bulging L3-L4 with anterior thecal sac flattening. CT angiography of the head and neck is reported as no evidence of dissection of the cervical internal carotid artery or vertebral artery or any evidence of significant stenosis at the carotid bifurcation. No evidence of intracranial high-grade stenosis or intracranial aneurysm. 2D echo: Reported as normal left ventricle systolic function. - Labs CBC & Chem 7: 06/01/23 08:26 06/01/23 08:26 Labs: Abnormal Lab Results - Last 24 Hours (Table) 05/31/23 05/31/23 05/31/23 Range/Units 14:57 17:35 21:16 Sodium (137-145) mmol/L Carbon Dioxide (22-30) mmol/L Glucose (74-99) mg/dL POC Glucose (mg/dL) 202 H 182 H 201 H (70-110) mg/dL Total Protein (6.3-8.2) g/dL 06/01/23 06/01/23 06/01/23 Range/Units 05:00 08:07 08:26 Sodium 136 L (137-145) mmol/L Carbon Dioxide 21 L (22-30) mmol/L Glucose 216 H (74-99) mg/dL POC Glucose (mg/dL) 200 H 220 H (70-110) mg/dL Total Protein 6.2 L (6.3-8.2) g/dL 06/01/23 Range/Units 12:05 Sodium (137-145) mmol/L Carbon Dioxide (22-30) mmol/L Glucose (74-99) mg/dL POC Glucose (mg/dL) 162 H (70-110) mg/dL Total Protein (6.3-8.2) g/dL Assessment and Plan Assessment: This is a 72-year-old woman who presented to the emergency department because of mechanical fall. Post fall she noticed that she had worsening of the right lower facial droop and dysarthria. She is having the back pain radiating the posterior thigh up to the knee. Transient episode of dysarthria with worsening of the right facial droop: Probable TIA. I cannot exclude head concussion masking patient's neurological symptoms Compression fracture over the L3 on the CT. Right lumbar radiculopathy Diabetes mellitus and hemoglobin A1c 7.7 Dyslipidemia Plan: In the ED the patient was given aspirin 325 once Plavix 300 mg once. I started the patient on aspirin 81 mg daily (was not on antiplatlelets prior to this) Is on Lipitor 80 mg daily at bedtime. Pending MRI of the brain PT OT and TRAINING PROGRAM ASSISTANT are consulted Continue Cardiac monitoring Orthopedic surgery team is consulted We'll defer the rest of the medical management to primary team For DVT prophylaxis IOn subcu heparin 5000 units every 12 hours If MRI Brain is negative then no further neurological work-up. Time with Patient: Less than 30
[2023-06-01 15:54] LABS: Glucose,Whole Blood 234 mg/dL (70-110)
[2023-06-01 20:11] LABS: Glucose,Whole Blood 217 mg/dL (70-110)
[2023-06-01] MEDS: ATORVASTATIN 80 MG TAB PO SCH (20:57)
[2023-06-01] MEDS: CYCLOBENZAPRINE 10 MG TAB PO PRN (21:06)
[2023-06-01] MEDS: HYDROcodone/APAP 5-325MG 1 EACH TAB PO PRN (21:06)
[2023-06-02 00:01] LABS: Glucose,Whole Blood 195 mg/dL (70-110)
[2023-06-02] MEDS: INSULIN ASPART (NovoLOG) 100 UNIT/ML VIAL SQ SCH ×3 (01:11→09:11)
[2023-06-02 03:56] LABS: Glucose,Whole Blood 207 mg/dL (70-110)
[2023-06-02 07:19] LABS: Glucose,Whole Blood 193 mg/dL (70-110)
[2023-06-02 08:20] VITALS: BP 181/79; PULSE 91; RESP 16; TEMP 97.9
--- NOTE | 2023-06-02 08:55 | P.DS ---
Providers Date of admission: 05/30/23 15:27 Attending physician: Jonel Aguilar Consults: 05/30/23 15:28 Consult Physician Routine Consulting Provider: Linda Crowe Consult Reason/Comments: tia Do you want consulting provider notified?: Yes Consult Physician Routine Consulting Provider: Philip Corea Consult Reason/Comments: lumbar compression fracture Do you want consulting provider notified?: Already Contacted Primary care physician: Jonel Aguilar - Discharge Diagnosis(es) (1) Diabetes Current Visit: Yes Status: Acute (2) Fall Current Visit: Yes Status: Acute (3) Hyperlipemia Current Visit: Yes Status: Acute (4) Lumbar compression fracture Current Visit: Yes Status: Acute (5) TIA (transient ischemic attack) Current Visit: Yes Status: Acute Hospital Course: The patient was admitted for syncopal episode and fall while doing laundry. She is found to have end plate fracture of the back. Workup neurologically to ended up being nominal. MRI was normal as was CT scanned. She stable except for her back pain. She'll be discharged in stable condition to follow-up with me in about a week. Patient Condition at Discharge: Stable Plan - Discharge Summary New Discharge Prescriptions: New RX: Atorvastatin [Lipitor] 80 mg PO HS #30 tab RX: HYDROcodone/APAP 5-325MG [Roca 5-325] 1 each PO Q6HR PRN #120 tab PRN Reason: Pain RX: Aspirin 81 mg PO DAILY tab Continue RX: PARoxetine [Paxil] 20 mg PO DAILY RX: diphenhydrAMINE [Benadryl] 25 mg PO BID RX: metFORMIN HCL ER [Glucophage XR] 1,000 mg PO BID RX: Cyclobenzaprine [Flexeril] 10 mg PO BID PRN PRN Reason: Muscle Spasm Discontinued Atorvastatin [Lipitor] 20 mg PO HS Discharge Medication List RX: PARoxetine [Paxil] 20 mg PO DAILY 01/10/18 [History] RX: diphenhydrAMINE [Benadryl] 25 mg PO BID 01/10/18 [History] RX: Cyclobenzaprine [Flexeril] 10 mg PO BID PRN 05/30/23 [History] RX: metFORMIN HCL ER [Glucophage XR] 1,000 mg PO BID 05/30/23 [History] RX: Aspirin 81 mg PO DAILY tab 06/02/23 [Rx] RX: Atorvastatin [Lipitor] 80 mg PO HS #30 tab 06/02/23 [Rx] RX: HYDROcodone/APAP 5-325MG [Roca 5-325] 1 each PO Q6HR PRN #120 tab 06/02/23 [Rx] Follow up Appointment(s)/Referral(s): Jonel Aguilar MD [Primary Care Provider] - 1-2 days Hunter Villagomez PAC [PHYSICIAN CAR SUPPLIER] - 2 Weeks (Patient may follow-up with Hunter Villagomez PA-C or Dr. Channing Crouch at [facility] in 2-3 weeks following discharge. ) Activity/Diet/Wound Care/Special Instructions: 1. Patient may wear LSO brace for comfort and support while sitting upright at greater than 45, while working with therapy, and while ambulating; patient does not have to wear the brace while lying in bed or bathing 2. Patient should avoid excessive bending, twisting, and lifting; no lifting greater than 10 pounds Discharge Disposition: HOME SELF-CARE
[2023-06-02 09:00] LABS: Glucose,Whole Blood 240 mg/dL (70-110)
[2023-06-02] MEDS: diphenhydrAMINE 25 MG CAP PO SCH (09:12)
[2023-06-02] MEDS: metFORMIN 500 MG TAB PO SCH (09:12)
[2023-06-02] MEDS: ASPIRIN 81 MG PO SCH (09:12)
[2023-06-02] MEDS: PARoxetine 20 MG TAB PO SCH (09:12)
== END 2023-06-02 11:15 | disposition home health service (06) | DRG 552 ==
LOC: EC 12:43 → 3SCARD 15:27 → 5NMEDONC 06-01 13:57
PROVIDERS: ADMIT Family Medicine; ATTEND Family Medicine
DX: S32.039A Unspecified fracture of third lumbar vertebra, initial encounter for closed fracture (principal); G45.9 Transient cerebral ischemic attack, unspecified; E11.65 Type 2 diabetes mellitus with hyperglycemia; R47.1 Dysarthria and anarthria; R29.810 Facial weakness; Z28.310 Unvaccinated for COVID-19; M51.36 Other intervertebral disc degeneration, lumbar region; M47.26 Other spondylosis with radiculopathy, lumbar region; E78.5 Hyperlipidemia, unspecified; M54.2 Cervicalgia; H40.9 Unspecified glaucoma; F41.9 Anxiety disorder, unspecified; Z79.84 Long term (current) use of oral hypoglycemic drugs; Z79.899 Other long term (current) drug therapy; Z86.73 Personal history of transient ischemic attack (TIA), and cerebral infarction without residual deficits; W01.0XXA Fall on same level from slipping, tripping and stumbling without subsequent striking against object, initial encounter; Y92.009 Unspecified place in unspecified non-institutional (private) residence as the place of occurrence of the external cause
CPT/HCPCS: 36415; 70450; 70496; 70498; 70551; 71045; 72125; 72131; 72192; 80053; 80061; 80306; 80320; 81001; 82550; 83036; 84443; 85025; 85027; 85610; 85730; 86850; 86900; 86901; 93005; 93306; 96374; 99291

== ENCOUNTER 2024-02-01 14:56 | Emergency (ER) | payer MEDICARE, BC ==
--- NOTE | 2024-03-09 08:33 | XR ---
Patient Tiffanie Hooker ID [id number] Order # EXAMINATION TYPE: XR foot complete RT DATE OF EXAM: 02/13/2024 COMPARISON: No comparison available on downtime PACS. HISTORY: Hit foot on chair one week prior TECHNIQUE: 3 view right foot FINDINGS: Small chip fracture at the base of the proximal phalanx third digit may be present. There is a radiopaque foreign body between the fourth and fifth digits adjacent to the distal aspect of the fourth metatarsal. Prior large Achilles tendon calcaneal heel spur is present. Plantar calcaneal heel spur is present. IMPRESSION: 1. Suspected fracture medial base proximal phalanx third digit right foot. 2. Radiopaque foreign body lateral to the distal fourth metatarsal between the fourth digits.
== END 2024-02-01 18:25 | disposition home or self-care (01) ==
LOC: EC 14:56
CPT/HCPCS: 99283

== ENCOUNTER 2025-01-16 17:00 | Inpatient (IN) | payer MEDICARE, BC ==
[2025-01-16] MEDS ORDERED: VANCOMYCIN IV PER PHARMACY 1 EACH MISC MISCELLANE PRN (17:23)
--- NOTE | 2025-01-16 17:28 | ED ---
Skin/Abscess/FB HPI - General Chief complaint: Skin/Abscess/Foreign Body Stated complaint: infected right foot wound Time Seen by Provider: 01/16/25 17:24 Source: patient, RN notes reviewed Mode of arrival: wheelchair Limitations: no limitations - History of Present Illness Initial comments: 74-year-old female sent by Dr. Hudson for right foot infection. States the infection began about 9 days ago after she had a callus on the ventral lateral aspect of her right foot that broke off. She then peeled the rest of the skin off creating an open wound. States she saw Dr. Hudson 7 days ago who prescribed her oral Keflex. She had a follow-up appointment with him today who told her that the infection is continuing to spread proximal and she needs to come to the ER for IV antibiotics. He did repack the wound today. Patient denies fevers, nausea, vomiting, chills. She has a history of diabetes and high cholesterol. Denies history of MRSA infections. - Related Data Home Medications Medication Instructions Recorded Confirmed PARoxetine [Paxil] 20 mg PO DAILY 01/10/18 01/16/25 diphenhydrAMINE [Benadryl] 25 mg PO BID 01/10/18 01/16/25 metFORMIN HCL ER [Glucophage XR] 1,000 mg PO BID 05/30/23 01/16/25 Cephalexin [Keflex] 500 mg PO QID 01/16/25 01/16/25 Famotidine [Pepcid] 20 mg PO BID 01/16/25 01/16/25 Multivitamins, Thera [Multivitamin 1 tab PO DAILY 01/16/25 01/16/25 (formulary)] Previous Rx's Medication Instructions Recorded Aspirin 81 mg PO DAILY tab 06/02/23 Atorvastatin [Lipitor] 80 mg PO HS #30 tab 06/02/23 Allergies Allergy/AdvReac Type Severity Reaction Status Date / Time Penicillins Allergy Swelling Verified 01/16/25 18:01 face sulfamethoxazole AdvReac shaking Verified 01/16/25 18:01 [From Bactrim] trimethoprim [From Bactrim] AdvReac shaking Verified 01/16/25 18:01 Review of Systems ROS Statement: Those systems with pertinent positive or pertinent negative responses have been documented in the HPI. ROS Other: All systems not noted in ROS Statement are negative. Past Medical History Past Medical History: Diabetes Mellitus, Hyperlipidemia, Osteoarthritis (OA) Additional Past Medical History / Comment(s): GOUT, ATHRITIS,lt elbow and lower back bone spur, wound 3rd toe rt foot History of Any Multi-Drug Resistant Organisms: None Reported Past Surgical History: Cholecystectomy, Hysterectomy Additional Past Surgical History / Comment(s): SX FOR GLAUCOMA, SURGERY FOR R ECTAL ABSCESS Past Anesthesia/Blood Transfusion Reactions: No Reported Reaction Past Psychological History: Anxiety Smoking Status: Former smoker Past Alcohol Use History: None Reported Past Drug Use History: None Reported - Past Family History Father Family Medical History: CVA/TIA, Hypertension Additional Family Medical History / Comment(s): AT AGE 95- NEVER TOOK ANY PRESCRIPTION MEDS UNTIL AGE 85 Mother Family Medical History: Congestive Heart Failure (CHF), Diabetes Mellitus, Myocardial Infarction ([place]) Additional Family Medical History / Comment(s): AT AGE 73-from [place] General Exam Limitations: no limitations General appearance: alert, in no apparent distress Head exam: Present: atraumatic, normocephalic, normal inspection Eye exam: Present: normal appearance, PERRL, EOMI. Absent: scleral icterus, c onjunctival injection, periorbital swelling Right Lower Leg exam: Present: normal inspection, full ROM. Absent: tenderness, swelling Ankle exam: Present: normal inspection, full ROM. Absent: tenderness, swelling Foot/Toe exam: Present: full ROM, tenderness, swelling, erythema. Absent: normal inspection (Wound with packing present on ventral aspect of lateral right foot. Surrounding erythema extending proximal. Full range of motion of ankle and all digits. DP pulses present bilaterally), abrasion, laceration Neurovascular tendon exam: Present: no vascular compromise. Absent: pulse d eficit, abnormal cap refill, motor deficit Neurological exam: Present: alert, oriented X3 Psychiatric exam: Present: normal affect, normal mood Skin exam: Present: warm, dry, intact, normal color. Absent: rash Course Vital Signs 01/16/25 01/16/25 17:01 19:18 Temperature 97.9 F 98.0 F Pulse Rate 96 92 Respiratory 18 19 Rate Blood Pressure 130/80 145/77 O2 Sat by Pulse 97 100 Oximetry Medical Decision Making - Medical Decision Making Was pt. sent in by a medical professional or institution (, PA, CHILD DEVELOPMENT SPECIALIST, urgent care, hospital, or long-term...) When possible be specific @ -Sent by Dr. Hudson for IV antibiotics Did you speak to anyone other than the patient for history (EMS, parent, family, police, friend...)? What history was obtained from this source @ -No Did you review nursing and triage notes (agree or disagree)? Why? @ -I reviewed and agree with nursing and triage notes Were old charts reviewed (outside hosp., previous admission, EMS record, old EKG, old radiological studies, urgent care reports/EKG's, long-term records)? Report findings @ -No old charts were reviewed Differential Diagnosis (chest pain, altered mental status, abdominal pain women, abdominal pain men, vaginal bleeding, weakness, fever, dyspnea, syncope, headache, dizziness, GI bleed, back pain, seizure, CVA, palpatations, mental health, musculoskeletal)? @ -Differential Musculoskeletal Muscular strain, contusion, ligament sprain, fracture, arthritis, septic arthritis, bursitis, cellulitis, muscle spasm, nerve compression, DVT, arterial occlusion, herpes zoster, electrolyte abnormality, tumor.... This is not meant to be in all inclusive list EKG interpreted by me (3pts min.). @ -None X-rays interpreted by me (1pt min.). @ -X-ray right foot reveals prominent soft tissue swelling at the ankle and ra diopaque foreign body between the 4th and 5th metatarsal phalangeal joint space regions along the plantar aspect of the foot, diffuse soft tissue swelling over this region CT interpreted by me (1pt min.). @ -None done U/S interpreted by me (1pt. min.). @ -None done What testing was considered but not performed or refused? (CT, X-rays, U/S, labs)? Why? @ -None What meds were considered but not given or refused? Why? @ -None Did you discuss the management of the patient with other professionals (p rofessionals i.e. , PA, CHILD DEVELOPMENT SPECIALIST, lab, RT, psych nurse, social media senior associate, administrative medical director, teacher, loans officer, case filler)? Give summary @ -I spoke with Dr. Aguilar who accepts admission for right foot wound with severe sepsis. Requested consultation to infectious disease Was smoking cessation discussed for >3mins.? @ -No Was critical care preformed (if so, how long)? @ -Yes, 45 minutes Were there social determinants of health that impacted care today? How? (Homelessness, low income, unemployed, alcoholism, drug addiction, transportation, low edu. Level, literacy, decrease access to med. care, fdc, r ehab)? @ -No Was there de-escalation of care discussed even if they declined (Discuss DNR or withdrawal of care, Hospice)? DNR status @ -No What co-morbidities impacted this encounter? (DM, HTN, Smoking, COPD, CAD, Cancer, CVA, ARF, Chemo, Hep., AIDS, mental health diagnosis, sleep apnea, morbid obesity)? @ -None Was patient admitted / discharged? Hospital course, mention meds given and route, prescriptions, significant lab abnormalities, going to OR and other pertinent info. @ -Admitted. 74-year-old female sent by Dr. Hudson for right foot infection with failed outpatient treatment. Patient is afebrile, normotensive. Overall well appearing. Neurovascularly intact to the right lower extremity. Blood cultures were taken and patient was started on IV vancomycin. Patient meets severe sep sis criteria given heart rate 96bpm and leukocytosis of 12 with a lactic of 4.4. Started on appropriate IV fluids in addition to the antibiotics. Patient will be admitted to medicine with consultation to infectious disease services. Patient stable at time of admission. Case was discussed with my ED attending Dr. Savage. Undiagnosed new problem with uncertain prognosis? @ -No Drug Therapy requiring intensive monitoring for toxicity (Heparin, Nitro, Insulin, Cardizem)? @ -No Were any procedures done? @ -No Diagnosis/symptom? @ -Right foot wound, severe sepsis Acute, or Chronic, or Acute on Chronic? @ -Acute Uncomplicated (without systemic symptoms) or Complicated (systemic symptoms)? @ -Complicated Side effects of treatment? @ -No Exacerbation, Progression, or Severe Exacerbation? @ -No Poses a threat to life or bodily function? How? (Chest pain, [place], [place], pneumonia, PE, COPD, DKA, ARF, appy, cholecystitis, CVA, Diverticulitis, Homicidal, Suicidal, threat to staff... and all critical care pts) @ -Yes, sepsis - Lab Data Result diagrams: 01/16/25 17:39 01/16/25 17:39 Lab Results 07/22/25 07/22/25 07/22/25 Range/Units 17:39 17:39 17:39 WBC 12.65 H (4.50-10.00) 10*3/uL RBC 4.42 (4.10-5.20) 10*6/uL Hgb 13.1 (12.0-15.0) g/dL Hct 39.7 (37.2-46.3) % MCV 89.8 (80.0-97.0) fL MCH 29.6 (27.0-32.0) pg MCHC 33.0 (32.0-37.0) g/dL Plt Count 411 (140-440) 10*3/uL MPV 9.8 (9.5-12.2) fL Immature Gran % (Auto) 0.5 % Neutrophils % 70.9 % Lymphocytes % 22.4 % Monocytes % 4.7 % Eosinophils % 1.1 % Basophils % 0.4 % Immature Gran # 0.06 H (0.00-0.04) 10*3/uL Neutrophils # 8.98 H (1.80-7.70) 10*3/uL Lymphocytes # 2.83 (0.90-5.00) 10*3/uL Monocytes # 0.59 (0.20-1.00) 10*3/uL Eosinophils # 0.14 (0.04-0.35) 10*3/uL Basophils # 0.05 (0.00-0.10) 10*3/uL Sodium 138 (137-145) mmol/L Potassium 4.5 (3.5-5.1) mmol/L Chloride 104 (98-107) mmol/L Carbon Dioxide 20 L (22-30) mmol/L Anion Gap 14 mmol/L BUN 16 (7-17) mg/dL Creatinine 0.92 (0.52-1.04) mg/dL Est GFR (CKD-EPI)AfAm 71 (>60 ml/min/1.73 sqM) Est GFR (CKD-EPI)NonAf 61 (>60 ml/min/1.73 sqM) Glucose 290 H (74-99) mg/dL Plasma Lactic Acid Emre 4.4 H* (0.7-2.0) mmol/L Calcium 9.6 (8.4-10.2) mg/dL Total Bilirubin 0.4 (0.2-1.3) mg/dL AST 19 (14-36) U/L ALT 16 (4-34) U/L Alkaline Phosphatase 103 (38-126) U/L Total Protein 6.0 L (6.3-8.2) g/dL Albumin 3.5 (3.5-5.0) g/dL Disposition Clinical Impression: Wound of right foot, Severe sepsis Disposition: ADMITTED IP TO THIS HOSP Condition: Fair Referrals: Jonel Aguilar MD [Primary Care Provider] - 1-2 days Time of Disposition: 20:00
[2025-01-16 17:51] LABS: Basophils # (A) 0.05 10*3/uL (0.00-0.10); Basophils % (A) 0.4 %; Eosinophils # (A) 0.14 10*3/uL (0.04-0.35); Eosinophils % (A) 1.1 %; HCT 39.7 % (37.2-46.3); HGB 13.1 g/dL (12.0-15.0); Lymphocytes # (A) 2.83 10*3/uL (0.90-5.00); Lymphocytes % (A) 22.4 %; MCH 29.6 pg (27.0-32.0); MCHC 33.0 g/dL (32.0-37.0); MCV 89.8 fL (80.0-97.0); Monocytes # (A) 0.59 10*3/uL (0.20-1.00); Monocytes % (A) 4.7 %; Neutrophils # (A) 8.98 10*3/uL (1.80-7.70); Neutrophils % (A) 70.9 %; Platelet Count 411 10*3/uL (140-440); RBC 4.42 10*6/uL (4.10-5.20); RDW 12.2 % (11.5-14.5); WBC 12.65 10*3/uL (4.50-10.00)
[2025-01-16 18:10] LABS: ALT 16 U/L (4-34); AST 19 U/L (14-36); African American GFR (CKD) 71 (>60 ml/min/1.73 sqM); Albumin 3.5 g/dL (3.5-5.0); Alkaline Phosphatase 103 U/L (38-126); Anion Gap 14 mmol/L; Blood Urea Nitrogen 16 mg/dL (7-17); Calcium 9.6 mg/dL (8.4-10.2); Carbon Dioxide 20 mmol/L (22-30); Chloride 104 mmol/L (98-107); Glucose 290 mg/dL (74-99); Non-African American GFR(CKD) 61 (>60 ml/min/1.73 sqM); Potassium 4.5 mmol/L (3.5-5.1); Sodium 138 mmol/L (137-145); Total Protein 6.0 g/dL (6.3-8.2)
[2025-01-16] MEDS: VANCOMYCIN 1,750 MG in SODIUM CHLORIDE 0.9% 500 ML 500 ML IVPB ONE (18:13)
[2025-01-16] MEDS: SODIUM CHLORIDE 0.9% 1,000 ML IV STA (18:14)
[2025-01-16] MEDS: LACTATED RINGERS 1,000 ML IV SCH ×2 (19:21→19:23)
[2025-01-16] MEDS ORDERED: ONDANSETRON 4 MG/2 ML VIAL IVP PRN (19:52)
[2025-01-16] MEDS ORDERED: HYDROmorphone 1 MG/ML 1 ML SYRINGE IVP PRN (19:52)
[2025-01-16] MEDS ORDERED: ACETAMINOPHEN TAB 325 MG TAB PO PRN (19:52)
[2025-01-16] MEDS ORDERED: KETOROLAC 15 MG/ML 1 ML VIAL IVP PRN (19:52)
[2025-01-16] MEDS ORDERED: NALOXONE 0.4 MG/ML 1 ML VIAL IV PRN (19:52)
--- NOTE | 2025-01-16 19:52 | XR ---
EXAMINATION TYPE: XR foot complete RT DATE OF EXAM: 01/16/2025 6:02 PM COMPARISON: 02/01/2024 CLINICAL INDICATION: Female, 74 years old with history of right foot infection, pain TECHNIQUE: 3 view(s) obtained. FINDINGS: Prominent soft tissue swelling is over the ankle. Radiopaque foreign bodies adjacent to the interspac e between the distal fourth and fifth metatarsophalangeal joint spaces along the plantar surface. Thi s was present previously. Large calcaneal heel spurs are present. No acute fractures are identified. No suspicious erosions kelsi dent. Mild diffuse joint space narrowing is present. IMPRESSION: 1. Prominent soft tissue swelling at the ankle. 2. Radiopaque foreign body between the fourth and fifth metatarsophalangeal joint space regions along the plantar aspect of the foot. Diffuse soft tissue swelling over this region. [facility], Workstation: [facility], 01/16/2025 7:50 PM
[2025-01-17 03:56] LABS: African American GFR (CKD) 86 (>60 ml/min/1.73 sqM); Non-African American GFR(CKD) 75 (>60 ml/min/1.73 sqM)
[2025-01-17 06:25] LABS: Glucose,Whole Blood 189 mg/dL (70-110)
[2025-01-17] MEDS ORDERED: DEXTROSE 50% SYRINGE 50 ML IVP PRN ×2 (08:27)
--- NOTE | 2025-01-17 08:44 | P.HPIM ---
History of Present Illness H&P Date: 01/17/25 Chief Complaint: Right foot infection. The patient is a 74-year-old white female with known history of diabetes with been fairly well-controlled who developed a foot infection. Podiatry has been taking care of it and started on Keflex and did a debridement. However she was not healing appropriately and was sent to the hospital for appropriate admission and evaluation. She has not been started on empiric antibiotic treatment cultures are pending appreciate surgical consultation as well. History of foot infection from my memory Review of Systems Constitutional: Denies chills, Denies fever Eyes: denies blurred vision, denies pain Ears, nose, mouth and throat: Denies headache, Denies sore throat Respiratory: Denies cough Genitourinary: Denies dysuria, Denies hematuria Musculoskeletal: Denies frequent falls, Denies myalgias Integumentary: Reports wounds Psychiatric: Denies anxiety, Denies depression Past Medical History Past Medical History: Diabetes Mellitus, Hyperlipidemia, Osteoarthritis (OA) Additional Past Medical History / Comment(s): GOUT, ATHRITIS,lt elbow and lower back bone spur, wound 3rd toe rt foot History of Any Multi-Drug Resistant Organisms: None Reported Past Surgical History: Cholecystectomy, Hysterectomy Additional Past Surgical History / Comment(s): SX FOR GLAUCOMA, SURGERY FOR RE CTAL ABSCESS Past Anesthesia/Blood Transfusion Reactions: No Reported Reaction Past Psychological History: Anxiety Smoking Status: Former smoker Past Alcohol Use History: None Reported Additional Past Alcohol Use History / Comment(s): STARTED SMOKING AT AGE 15 SMOKED 1 PPD. QUIT 1998 Past Drug Use History: None Reported - Past Family History Father Family Medical History: CVA/TIA, Hypertension Additional Family Medical History / Comment(s): AT AGE 95- NEVER TOOK ANY PRESCRIPTION MEDS UNTIL AGE 85 Mother Family Medical History: Congestive Heart Failure (CHF), Diabetes Mellitus, Myocardial Infarction ([place]) Additional Family Medical History / Comment(s): AT AGE 73-from [place] Medications and Allergies Home Medications Medication Instructions Recorded Confirmed Type PARoxetine [Paxil] 20 mg PO DAILY 01/10/18 01/16/25 History diphenhydrAMINE [Benadryl] 25 mg PO BID 01/10/18 01/16/25 History metFORMIN HCL ER [Glucophage XR] 1,000 mg PO BID 05/30/23 01/16/25 History Aspirin 81 mg PO DAILY tab 06/02/23 01/16/25 Rx Atorvastatin [Lipitor] 80 mg PO HS #30 tab 06/02/23 01/16/25 Rx Cephalexin [Keflex] 500 mg PO QID 01/16/25 01/16/25 History Famotidine [Pepcid] 20 mg PO BID 01/16/25 01/16/25 History Multivitamins, Thera [Multivitamin 1 tab PO DAILY 01/16/25 01/16/25 History (formulary)] Allergies Allergy/AdvReac Type Severity Reaction Status Date / Time Penicillins Allergy Swelling Verified 01/16/25 18:01 face sulfamethoxazole AdvReac shaking Verified 01/16/25 18:01 [From Bactrim] trimethoprim [From Bactrim] AdvReac shaking Verified 01/16/25 18:01 Physical Exam Vitals: Vital Signs Temp Pulse Pulse Resp BP BP Pulse Ox 01/17/25 03:31 98.0 F 84 18 139/82 99 01/17/25 00:00 94 18 154/76 98 01/16/25 22:00 97.8 F 98 19 147/78 98 01/16/25 20:50 98.2 F 90 19 161/86 100 01/16/25 19:18 98.0 F 92 19 145/77 100 01/16/25 17:01 97.9 F 96 18 130/80 97 Intake and Output 01/16/25 01/17/25 01/17/25 22:59 06:59 14:59 Intake Total 240 80 Balance 240 80 Intake: Oral 240 80 Other: Voiding Method Bedside Commode Bedside Commode # Voids 2 Weight 104.326 kg 107 kg - Constitutional General appearance: obese - EENT Eyes: no abnormal pupil - Respiratory Respiratory: bilateral: CTA - Cardiovascular Rhythm: regular Heart sounds: normal: S1, S2 Abnormal Heart Sounds: no S3 Gallop - Gastrointestinal General gastrointestinal: soft, no tenderness - Integumentary Integumentary: cellulitis - Neurologic Neurologic: CNII-XII intact - Psychiatric Psychiatric: A&O x's 3 Results CBC & Chem 7: 01/16/25 17:39 01/17/25 03:25 Labs: Abnormal Lab Results - Last 24 Hours (Table) 01/16/25 01/16/25 01/16/25 Range/Units 17:39 17:39 17:39 WBC 12.65 H (4.50-10.00) 10*3/uL Immature Gran # 0.06 H (0.00-0.04) 10*3/uL Neutrophils # 8.98 H (1.80-7.70) 10*3/uL Carbon Dioxide 20 L (22-30) mmol/L Glucose 290 H (74-99) mg/dL POC Glucose (mg/dL) (70-110) mg/dL Plasma Lactic Acid Emre 4.4 H* (0.7-2.0) mmol/L Total Protein 6.0 L (6.3-8.2) g/dL 01/16/25 01/16/25 01/17/25 Range/Units 20:47 23:52 06:24 WBC (4.50-10.00) 10*3/uL Immature Gran # (0.00-0.04) 10*3/uL Neutrophils # (1.80-7.70) 10*3/uL Carbon Dioxide (22-30) mmol/L Glucose (74-99) mg/dL POC Glucose (mg/dL) 189 H (70-110) mg/dL Plasma Lactic Acid Emre 4.1 H* 2.1 H* (0.7-2.0) mmol/L Total Protein (6.3-8.2) g/dL Thrombosis Risk Factor Assmnt - Choose All That Apply Each Factor Represents 1 point: Obesity (BMI >25) Each Risk Factor Represents 3 Points: Age 75 years or older Thrombosis Risk Factor Assessment Total Risk Factor Score: 4 Thrombosis Risk Factor Assessment Level: Moderate Risk Assessment and Plan (1) Severe sepsis Current Visit: Yes Status: Acute Code(s): A41.9 - SEPSIS, UNSPECIFIED ORGANISM; R65.20 - SEVERE SEPSIS WITHOUT SEPTIC SHOCK SNOMED Code(s): 17574474 (2) Wound of right foot Current Visit: Yes Status: Acute Code(s): S91.301A - UNSPECIFIED OPEN WOUND, RIGHT FOOT, INITIAL ENCOUNTER SNOMED Code(s): 950100913 (3) Diabetic ulcer of toe of right foot with fat layer exposed Current Visit: No Status: Acute Code(s): E11.621 - TYPE 2 DIABETES MELLITUS WITH FOOT ULCER; L97.512 - NON-PRS CHRONIC ULCER OTH PRT RIGHT FOOT W FAT LAYER EXPOSED SNOMED Code(s): 753841363 Plan: Continue appropriate wound control. Vancomycin started. Check CBC and CMP in AM. Placed on sliding scale. Home medications will be reconciled. See orders otherwise
[2025-01-17] MEDS: VANCOMYCIN 1,750 MG in SODIUM CHLORIDE 0.9% 500 ML 500 ML IVPB SCH (09:14)
[2025-01-17] MEDS: metFORMIN 500 MG TAB PO SCH (09:15)
[2025-01-17] MEDS: MULTIVITAMINS, THERA 1 EACH TAB PO SCH (09:15)
[2025-01-17] MEDS: diphenhydrAMINE 25 MG CAP PO SCH (09:15)
[2025-01-17] MEDS: ASPIRIN 81 MG PO SCH (09:15)
[2025-01-17] MEDS: FAMOTIDINE 20 MG TAB PO SCH (09:15)
[2025-01-17] MEDS: PARoxetine 20 MG TAB PO SCH (09:15)
[2025-01-17] MEDS: ATORVASTATIN 80 MG TAB PO SCH (20:36)
--- NOTE | 2025-01-17 22:55 | P.CONS ---
History of Present Illness - Reason for Consult Consult date: 01/17/25 Right foot wound Requesting physician: aZyra Kruger - Chief Complaint Right foot pain swelling and redness x days - History of Present Illness Patient is a 74-year-old female past medical history significant for diabetes mellitus hypertension osteoarthritis anxiety did have a history of right foot callus and apparently which has broken off and the due to formation of an ulceration patient did have debridement of the wound done by her dining room attendant and the patient was started on oral Keflex on a follow-up appointment with the dining room attendant yesterday patient was noted to have increasing swelling redness concerning for ascending infection patient advised to go to the hospital for IV antibiotic therapy patient did not recall having any high-grade fever did have some chills patient denies having any headache no chest pain shortness of breath or cough no nausea vomiting abdominal pain or diarrhea patient did have diabetic neuropathy has denies significant pain to the right foot she did have swelling and redness and a blister on the dorsum as well to the right foot but no purulent drainage or presentation to the hospital patient was afebrile no fever Hemoccult subsequently patient was not tachycardic hypotensive or hypoxic patient did have a white count of 12.65 with a left shift creatinine 0.92 lactic acid was elevated 2.1 liver enzymes are normal patient did have x-ray of the foot prominent soft tissue swelling at the ankle radiopaque foreign body between the fourth and the fifth metatarsal joints. Region patient was started on vancomycin infectious disease was consulted for further management of antibiotic therapy Review of Systems Positive point and negatives has been mentioned in the HPI, complete review of systems was performed and all other systems are negative Past Medical History Past Medical History: Diabetes Mellitus, Hyperlipidemia, Osteoarthritis (OA) Additional Past Medical History / Comment(s): GOUT, ATHRITIS,lt elbow and lower back bone spur, wound 3rd toe rt foot History of Any Multi-Drug Resistant Organisms: None Reported Past Surgical History: Cholecystectomy, Hysterectomy Additional Past Surgical History / Comment(s): SX FOR GLAUCOMA, SURGERY FOR RECTAL ABSCESS Past Anesthesia/Blood Transfusion Reactions: No Reported Reaction Past Psychological History: Anxiety Smoking Status: Former smoker Past Alcohol Use History: None Reported Additional Past Alcohol Use History / Comment(s): STARTED SMOKING AT AGE 15 SMOKED 1 PPD. QUIT 1998 Past Drug Use History: None Reported - Past Family History Father Family Medical History: CVA/TIA, Hypertension Additional Family Medical History / Comment(s): AT AGE 95- NEVER TOOK ANY PRESCRIPTION MEDS UNTIL AGE 85 Mother Family Medical History: Congestive Heart Failure (CHF), Diabetes Mellitus, Myocardial Infarction (MS) Additional Family Medical History / Comment(s): AT AGE 73-from MS Medications and Allergies Home Medications Medication Instructions Recorded Confirmed Type PARoxetine [Paxil] 20 mg PO DAILY 01/10/18 01/16/25 History diphenhydrAMINE [Benadryl] 25 mg PO BID 01/10/18 01/16/25 History metFORMIN HCL ER [Glucophage XR] 1,000 mg PO BID 05/30/23 01/16/25 History Aspirin 81 mg PO DAILY tab 06/02/23 01/16/25 Rx Atorvastatin [Lipitor] 80 mg PO HS #30 tab 06/02/23 01/16/25 Rx Cephalexin [Keflex] 500 mg PO QID 01/16/25 01/16/25 History Famotidine [Pepcid] 20 mg PO BID 01/16/25 01/16/25 History Multivitamins, Thera [Multivitamin 1 tab PO DAILY 01/16/25 01/16/25 History (formulary)] Allergies Allergy/AdvReac Type Severity Reaction Status Date / Time Penicillins Allergy Swelling Verified 01/16/25 18:01 face sulfamethoxazole AdvReac shaking Verified 01/16/25 18:01 [From Bactrim] trimethoprim [From Bactrim] AdvReac shaking Verified 01/16/25 18:01 Physical Exam Vitals: Vital Signs Temp Pulse Pulse Resp BP BP Pulse Ox 01/17/25 08:34 76 18 01/17/25 08:30 97.7 F 76 18 135/70 96 01/17/25 03:31 98.0 F 84 18 139/82 99 01/17/25 00:00 94 18 154/76 98 01/16/25 22:00 97.8 F 98 19 147/78 98 01/16/25 20:50 98.2 F 90 19 161/86 100 01/16/25 19:18 98.0 F 92 19 145/77 100 01/16/25 17:01 97.9 F 96 18 130/80 97 Intake and Output 07/22/25 07/23/25 07/23/25 22:59 06:59 14:59 Intake Total 240 80 Balance 240 80 Intake: Oral 240 80 Other: Voiding Method Bedside Commode Bedside Commode Bedside Commode # Voids 2 Weight 104.326 kg 107 kg GENERAL DESCRIPTION: Elderly female lying in bed, no distress. No tachypnea or accessory muscle of respiration use. HEENT: Shows Pallor , no scleral icterus. Oral mucous membrane is dry. NECK: Trachea central, no thyromegaly. LUNGS: Unlabored breathing. Clear to auscultation anteriorly. No wheeze or crackle. HEART: S1, S2, regular rate and rhythm. No loud murmur ABDOMEN: Soft, no tenderness , guarding or rigidity, no organomegaly EXTREMITIES: Right foot wound on the plantar aspect with erythema extending on the dorsal aspect and a blister no foul-smelling drainage SKIN: No rash, no masses palpable. NEUROLOGICAL: The patient is awake, alert, oriented x3, mood and affect normal. Results CBC & Chem 7: 01/16/25 17:39 01/17/25 03:25 Labs: Abnormal Lab Results - Last 24 Hours (Table) 01/16/25 01/16/25 01/16/25 Range/Units 17:39 17:39 17:39 WBC 12.65 H (4.50-10.00) 10*3/uL Immature Gran # 0.06 H (0.00-0.04) 10*3/uL Neutrophils # 8.98 H (1.80-7.70) 10*3/uL Carbon Dioxide 20 L (22-30) mmol/L Glucose 290 H (74-99) mg/dL POC Glucose (mg/dL) (70-110) mg/dL Plasma Lactic Acid Emre 4.4 H* (0.7-2.0) mmol/L Total Protein 6.0 L (6.3-8.2) g/dL 01/16/25 01/16/25 01/17/25 Range/Units 20:47 23:52 06:24 WBC (4.50-10.00) 10*3/uL Immature Gran # (0.00-0.04) 10*3/uL Neutrophils # (1.80-7.70) 10*3/uL Carbon Dioxide (22-30) mmol/L Glucose (74-99) mg/dL POC Glucose (mg/dL) 189 H (70-110) mg/dL Plasma Lactic Acid Emre 4.1 H* 2.1 H* (0.7-2.0) mmol/L Total Protein (6.3-8.2) g/dL Assessment and Plan (1) Diabetic foot ulcer Current Visit: Yes Status: Acute Code(s): E11.621 - TYPE 2 DIABETES MELLITUS WITH FOOT ULCER; L97.509 - NON-PRESSURE CHRONIC ULCER OTH PRT UNSP FOOT W UNSP SEVERITY SNOMED Code(s): 141188741 (2) Diabetic foot infection Current Visit: Yes Status: Acute Code(s): E11.628 - TYPE 2 DIABETES MELLITUS WITH OTHER SKIN COMPLICATIONS; L08.9 - LOCAL INFECTION OF THE SKIN AND SUBCUTANEOUS TISSUE, UNSP SNOMED Code(s): 276858368 (3) Failure of outpatient treatment Current Visit: Yes Status: Acute Code(s): Z78.9 - OTHER SPECIFIED HEALTH STATUS SNOMED Code(s): 463426887 (4) Allergy to multiple antibiotics Current Visit: Yes Status: Acute Code(s): Z88.1 - ALLERGY STATUS TO OTHER ANTIBIOTIC AGENTS SNOMED Code(s): 570493193 (5) Wound of right foot Current Visit: Yes Status: Acute Code(s): S91.301A - UNSPECIFIED OPEN WOUND, RIGHT FOOT, INITIAL ENCOUNTER SNOMED Code(s): 382766336 Plan: 1patient presented to the hospital with right diabetic foot ulcer with associated secondary cellulitis likely infected callus failing outpatient oral Keflex and likely because of oral disease review of the culture previously has grown mostly Streptococcus agalactiae and no culture positive for MRSA 2-patient with multiple antibiotic ALLERGIES that would limit the number of antibiotic safe to use 3-we will try to obtain culture obtained by her dining room attendant nursing staff has been advised to get those results and also obtain a local culture both aerobic and anaerobic patient had further antibiotic therapy 4-discontinue vancomycin 5-will start the patient on cefazolin and see clinical response while waiting for the culture to finalize Question concern answered We will follow on clinical condition and cultures to further adjust medication if needed Thank you for this consultation we will follow the patient along with you Dictation was produced using [employer] software. please excuse any grammatical, word or spelling errors. Time with Patient: Greater than 30
[2025-01-18 06:33] LABS: HCT 36.2 % (37.2-46.3); HGB 11.5 g/dL (12.0-15.0); MCH 29.1 pg (27.0-32.0); MCHC 31.8 g/dL (32.0-37.0); MCV 91.6 fL (80.0-97.0); Platelet Count 299 10*3/uL (140-440); RBC 3.95 10*6/uL (4.10-5.20); RDW 12.2 % (11.5-14.5); WBC 6.87 10*3/uL (4.50-10.00)
[2025-01-18 06:47] LABS: ALT 11 U/L (4-34); AST 16 U/L (14-36); African American GFR (CKD) 71 (>60 ml/min/1.73 sqM); Albumin 2.8 g/dL (3.5-5.0); Alkaline Phosphatase 76 U/L (38-126); Anion Gap 9 mmol/L; Blood Urea Nitrogen 11 mg/dL (7-17); Calcium 9.1 mg/dL (8.4-10.2); Carbon Dioxide 23 mmol/L (22-30); Chloride 107 mmol/L (98-107); Glucose 177 mg/dL (74-99); Non-African American GFR(CKD) 61 (>60 ml/min/1.73 sqM); Potassium 4.5 mmol/L (3.5-5.1); Sodium 139 mmol/L (137-145); Total Protein 5.0 g/dL (6.3-8.2)
--- NOTE | 2025-01-18 08:29 | P.PN ---
Subjective Progress Note Date: 01/18/25 This is a 74-year-old female who presented to the emergency department with a right foot infection. Patient had been seeing podiatry who did a debridement and started patient on Keflex however wound was not healing appropriately. Patient has a dressing to her right foot, it is somewhat saturated this morning with serosanguineous drainage. Patient denies much feeling in that foot. Infectious diseases on board and her antibiotic was changed to Kefzol yesterday. Patient seen this morning laying in bed resting comfortably. Objective - Vital Signs Vital signs: Vital Signs Temp 98.1 F 01/18/25 04:00 Pulse 77 01/18/25 04:00 Resp 16 01/18/25 04:00 BP 141/73 01/18/25 04:00 Pulse Ox 97 01/18/25 04:00 FiO2 Intake & Output 01/17/25 01/18/25 01/18/25 18:59 06:59 18:59 Intake Total 460 540 Balance 460 540 Weight 48 kg Intake: Intake, IV Titration 100 Amount Vancomycin 1,750 mg In 100 Sodium Chloride 0.9% 500 ml 500 ml @ 167 mls/hr IVPB Q16H [facility] Rx#: [id number] Oral 360 540 Other: Voiding Method Bedside Commode Bedside Commode # Voids 2 1 - Constitutional General appearance: Present: cooperative, no acute distress - EENT Eyes: Present: PERRLA - Neck Neck: Present: normal ROM. Absent: lymphadenopathy, rigidity - Respiratory Respiratory: bilateral: CTA - Cardiovascular Heart sounds: normal: S1, S2 - Gastrointestinal General gastrointestinal: Present: soft. Absent: tenderness - Integumentary Integumentary Comment(s): Right foot wrapped in Kerlix, there is serosanguineous drainage noted on dressing. - Psychiatric Psychiatric: Present: A&O x's 3 - Labs CBC & Chem 7: 01/18/25 05:30 01/18/25 05:30 Labs: Abnormal Lab Results - Last 24 Hours (Table) 01/18/25 01/18/25 Range/Units 05:30 05:30 RBC 3.95 L (4.10-5.20) 10*6/uL Hgb 11.5 L (12.0-15.0) g/dL Hct 36.2 L (37.2-46.3) % MCHC 31.8 L (32.0-37.0) g/dL Glucose 177 H (74-99) mg/dL Total Protein 5.0 L (6.3-8.2) g/dL Albumin 2.8 L (3.5-5.0) g/dL Microbiology - Last 24 Hours (Table) 01/16/25 17:39 Blood Culture - Preliminary Blood Assessment and Plan (1) Severe sepsis Current Visit: Yes Status: Acute Code(s): A41.9 - SEPSIS, UNSPECIFIED ORGANISM; R65.20 - SEVERE SEPSIS WITHOUT SEPTIC SHOCK SNOMED Code(s): 34593635 (2) Wound of right foot Current Visit: Yes Status: Acute Code(s): S91.301A - UNSPECIFIED OPEN WOUND, RIGHT FOOT, INITIAL ENCOUNTER SNOMED Code(s): 949897178 (3) Diabetes Current Visit: No Status: Acute Code(s): E11.9 - TYPE 2 DIABETES MELLITUS WITHOUT COMPLICATIONS SNOMED Code(s): 23393183 (4) Diabetic ulcer of toe of right foot with fat layer exposed Current Visit: No Status: Acute Code(s): E11.621 - TYPE 2 DIABETES MELLITUS WITH FOOT ULCER; L97.512 - NON-PRS CHRONIC ULCER OTH PRT RIGHT FOOT W FAT LAYER EXPOSED SNOMED Code(s): 145381842 (5) Failure of outpatient treatment Current Visit: Yes Status: Acute Code(s): Z78.9 - OTHER SPECIFIED HEALTH STATUS SNOMED Code(s): 503345807 Plan: Appreciate infectious disease input. Check CBC and CMP in the morning. Patient seen and evaluated by nurse practitioner, physician in agreement with plan.
[2025-01-18 12:51] VITALS: BMI 17.0
--- NOTE | 2025-01-18 16:00 | P.PN ---
Subjective Progress Note Date: 01/18/25 Principal diagnosis: Reason for follow-up is right diabetic foot ulcer and cellulitis Patient is a 74-year-old female past medical history significant for diabetes mellitus hypertension osteoarthritis anxiety did have a history of right foot callus and apparently which has broken off and the due to formation of an ulceration patient did have debridement of the wound done by her arabic teacher and subsequent sent to hospital with worsening cellulitis failing outpatient oral Keflex. On today's evaluation that is 01/18/2025,the patient remains to be afebrile, patient is on room air not requiring supplemental oxygen and mentioned breathing comfortably with no chest pain or cough.Patient denies having any nausea or vomiting, no abdominal pain and no diarrhea swelling redness of the right foot has decreased intensity. Patient white count 6.87, creatinine 0.92 local cultures currently pending Objective - Vital Signs Vital signs: Vital Signs Temp 98.1 F 01/18/25 15:11 Pulse 77 01/18/25 15:11 Resp 20 01/18/25 15:11 BP 143/72 01/18/25 15:11 Pulse Ox 98 01/18/25 15:11 FiO2 Intake & Output 01/17/25 01/18/25 01/18/25 18:59 06:59 18:59 Intake Total 460 540 360 Balance 460 540 360 Weight 48 kg 48 kg Intake: Intake, IV Titration 100 Amount Vancomycin 1,750 mg In 100 Sodium Chloride 0.9% 500 ml 500 ml @ 167 mls/hr IVPB Q16H [facility] Rx#: [id number] Oral 360 540 360 Other: Voiding Method Bedside Commode Bedside Commode Bedside Commode # Voids 2 1 1 # Bowel Movements 1 - Exam GENERAL DESCRIPTION: An elderly female lying in bed in no distress RESPIRATORY SYSTEM: Unlabored breathing , decreased breath sounds at bases HEART: S1 S2 regular rate and rhythm , ABDOMEN: Soft , no tenderness EXTREMITIES: Right foot swelling redness has decreased - Labs CBC & Chem 7: 01/18/25 05:30 01/18/25 05:30 Labs: Abnormal Lab Results - Last 24 Hours (Table) 01/18/25 01/18/25 01/18/25 Range/Units 05:30 05:30 05:30 RBC 3.95 L (4.10-5.20) 10*6/uL Hgb 11.5 L (12.0-15.0) g/dL Hct 36.2 L (37.2-46.3) % MCHC 31.8 L (32.0-37.0) g/dL Glucose 177 H (74-99) mg/dL Hemoglobin A1c 8.4 H (<=6.0) % Total Protein 5.0 L (6.3-8.2) g/dL Albumin 2.8 L (3.5-5.0) g/dL Microbiology - Last 24 Hours (Table) 01/16/25 17:39 Blood Culture - Preliminary Blood Assessment and Plan (1) Diabetic foot ulcer Current Visit: Yes Status: Acute Code(s): E11.621 - TYPE 2 DIABETES MELLITUS WITH FOOT ULCER; L97.509 - NON-PRESSURE CHRONIC ULCER OTH PRT UNSP FOOT W UNSP SEVERITY SNOMED Code(s): 904763611 (2) Diabetic foot infection Current Visit: Yes Status: Acute Code(s): E11.628 - TYPE 2 DIABETES MELLITUS WITH OTHER SKIN COMPLICATIONS; L08.9 - LOCAL INFECTION OF THE SKIN AND SUB CUTANEOUS TISSUE, UNSP SNOMED Code(s): 912410134 (3) Failure of outpatient treatment Current Visit: Yes Status: Acute Code(s): Z78.9 - OTHER SPECIFIED HEALTH STATUS SNOMED Code(s): 929771191 (4) Allergy to multiple antibiotics Current Visit: Yes Status: Acute Code(s): Z88.1 - ALLERGY STATUS TO OTHER ANTIBIOTIC AGENTS SNOMED Code(s): 212619601 (5) Wound of right foot Current Visit: Yes Status: Acute Code(s): S91.301A - UNSPECIFIED OPEN WOUND, RIGHT FOOT, INITIAL ENCOUNTER SNOMED Code(s): 914082531 Plan: 1patient presented to the hospital with right diabetic foot ulcer with associated secondary cellulitis likely infected callus failing outpatient oral Keflex and likely because of oral disease review of the culture previously has grown mostly Streptococcus agalactiae and no culture positive for MRSA 2-patient with multiple antibiotic ALLERGIES that would limit the number of antibiotic safe to use 3-currently waiting for culture obtained by her arabic teacher nursing staff has been advised to get those results. 4-patient is afebrile white count has normalized we will continue patient on cefazolin while waiting for the culture to finalize local wound care with a dry Aquacel dressing change q. 48-hour discussed with the nursing staff care discussed in detail with the daughter at the bedside Dictation was produced using [employer] dictation software. please excuse any grammatical, word or spelling errors. Time with Patient: Less than 30
[2025-01-19 07:16] LABS: HCT 38.6 % (37.2-46.3); HGB 12.4 g/dL (12.0-15.0); MCH 29.2 pg (27.0-32.0); MCHC 32.1 g/dL (32.0-37.0); MCV 90.8 fL (80.0-97.0); Platelet Count 292 10*3/uL (140-440); RBC 4.25 10*6/uL (4.10-5.20); RDW 12.1 % (11.5-14.5); WBC 6.99 10*3/uL (4.50-10.00)
[2025-01-19 07:42] LABS: ALT 10 U/L (4-34); African American GFR (CKD) >90 (>60 ml/min/1.73 sqM); Albumin 3.2 g/dL (3.5-5.0); Anion Gap 7 mmol/L; Blood Urea Nitrogen 12 mg/dL (7-17); Calcium 9.6 mg/dL (8.4-10.2); Carbon Dioxide 25 mmol/L (22-30); Chloride 106 mmol/L (98-107); Glucose 160 mg/dL (74-99); Non-African American GFR(CKD) 83 (>60 ml/min/1.73 sqM); Sodium 138 mmol/L (137-145); Total Protein 5.7 g/dL (6.3-8.2)
[2025-01-19 07:45] LABS: AST 25 U/L (14-36); Alkaline Phosphatase 71 U/L (38-126); Potassium 4.7 mmol/L (3.5-5.1)
--- NOTE | 2025-01-19 08:36 | P.PN ---
Subjective Progress Note Date: 01/19/25 Principal diagnosis: Diabetic foot ulcer. With cellulitis. The patient is here after having debridement but still has continued swelling and cellulitis of the right foot. Minimal pain. No fever Objective - Vital Signs Vital signs: Vital Signs Temp 98.2 F 01/19/25 04:00 Pulse 80 01/19/25 04:00 Resp 18 01/19/25 04:00 BP 151/73 01/19/25 04:00 Pulse Ox 98 01/19/25 04:00 FiO2 Intake & Output 01/18/25 01/19/25 01/19/25 18:59 06:59 18:59 Intake Total 777 90 Balance 777 90 Weight 48 kg 108 kg Intake: Oral 777 90 Other: Voiding Method Bedside Commode Bedside Commode # Voids 1 2 3 # Bowel Movements 1 1 1 - Constitutional General appearance: Present: average body habitus - EENT Eyes: Absent: abnormal pupil - Neck Neck: Present: lymphadenopathy - Respiratory Respiratory: bilateral: diminished - Cardiovascular Rhythm: regular Heart sounds: normal: S1, S2 Abnormal Heart Sounds: Absent: S3 Gallop - Gastrointestinal General gastrointestinal: Present: soft. Absent: tenderness - Integumentary Integumentary: Present: cellulitis - Psychiatric Psychiatric: Present: A&O x's 3 - Labs CBC & Chem 7: 01/19/25 07:00 01/19/25 07:00 Labs: Abnormal Lab Results - Last 24 Hours (Table) 01/18/25 01/19/25 Range/Units 05:30 07:00 Glucose 160 H (74-99) mg/dL Hemoglobin A1c 8.4 H (<=6.0) % Total Protein 5.7 L (6.3-8.2) g/dL Albumin 3.2 L (3.5-5.0) g/dL Microbiology - Last 24 Hours (Table) 01/16/25 17:39 Blood Culture - Preliminary Blood Assessment and Plan (1) Severe sepsis Current Visit: Yes Status: Acute Code(s): A41.9 - SEPSIS, UNSPECIFIED ORGANISM; R65.20 - SEVERE SEPSIS WITHOUT SEPTIC SHOCK SNOMED Code(s): 25876612 (2) Wound of right foot Current Visit: Yes Status: Acute Code(s): S91.301A - UNSPECIFIED OPEN WOUND, RIGHT FOOT, INITIAL ENCOUNTER SNOMED Code(s): 147196712 (3) Diabetic ulcer of toe of right foot with fat layer exposed Current Visit: No Status: Acute Code(s): E11.621 - TYPE 2 DIABETES MELLITUS WITH FOOT ULCER; L97.512 - NON-PRS CHRONIC ULCER OTH PRT RIGHT FOOT W FAT LAYER EXPOSED SNOMED Code(s): 776484094 Plan: Continue appropriate wound control. Slow improvement is noted. Check CBC and CMP in AM. See orders otherwise [facility] will be covering for the weekend. e
[2025-01-19] MEDS: FAMOTIDINE 20 MG TAB PO SCH ×2 (09:57→20:55)
[2025-01-19] MEDS: LOSARTAN 50 MG TAB PO SCH (12:46)
[2025-01-19 13:09] LABS: Glucose,Whole Blood 192 mg/dL (70-110)
--- NOTE | 2025-01-19 15:28 | P.PN ---
Subjective Progress Note Date: 01/19/25 Principal diagnosis: Reason for follow-up is right diabetic foot ulcer and cellulitis Patient is a 74-year-old female past medical history significant for diabetes mellitus hypertension osteoarthritis anxiety did have a history of right foot callus and apparently which has broken off and the due to formation of an ulceration patient did have debridement of the wound done by her half backer and subsequent sent to hospital with worsening cellulitis failing outpatient oral Keflex. On today's evaluation that is 01/19/2025, the patient continues to be afebrile, the patient is on room air and breathing comfortably, the Pt denies having any chest pain or cough, the patient denies having any abdominal pain no vomiting or any diarrhea and denies pain to the right foot area. Patient white count 6.9, creatinine 0.72 local cultures Streptococcus agalactiae blood culture negative Objective - Vital Signs Vital signs: Vital Signs Temp 97.5 F L 01/19/25 08:00 Pulse 80 01/19/25 08:00 Resp 18 01/19/25 08:00 BP 188/81 01/19/25 08:00 Pulse Ox 98 01/19/25 08:00 FiO2 Intake & Output 01/18/25 01/19/25 01/19/25 18:59 06:59 18:59 Intake Total 777 90 Balance 777 90 Weight 48 kg 108 kg Intake: Oral 777 90 Other: Voiding Method Bedside Commode Bedside Commode Bedside Commode # Voids 1 2 3 # Bowel Movements 1 1 1 - Exam GENERAL DESCRIPTION: An elderly female lying in bed in no distress RESPIRATORY SYSTEM: Unlabored breathing , decreased breath sounds at bases HEART: S1 S2 regular rate and rhythm , ABDOMEN: Soft , no tenderness EXTREMITIES: Right foot swelling redness has decreased - Labs CBC & Chem 7: 01/19/25 07:00 01/19/25 07:00 Labs: Abnormal Lab Results - Last 24 Hours (Table) 01/19/25 Range/Units 07:00 Glucose 160 H (74-99) mg/dL Total Protein 5.7 L (6.3-8.2) g/dL Albumin 3.2 L (3.5-5.0) g/dL Microbiology - Last 24 Hours (Table) 01/18/25 06:17 Gram Stain - Preliminary Foot - Right Wound Culture - Preliminary Strep agalactiae - (group b) 01/16/25 17:39 Blood Culture - Preliminary Blood Assessment and Plan (1) Diabetic foot ulcer Current Visit: Yes Status: Acute Code(s): E11.621 - TYPE 2 DIABETES MELLITUS WITH FOOT ULCER; L97.509 - NON-PRESSURE CHRONIC ULCER OTH PRT UNSP FOOT W UNSP SEVERITY SNOMED Code(s): 460800266 (2) Diabetic foot infection Current Visit: Yes Status: Acute Code(s): E11.628 - TYPE 2 DIABETES MELLITUS WITH OTHER SKIN COMPLICATIONS; L08.9 - LOCAL INFECTION OF THE SKIN AND SUBCUTANEOUS TISSUE, UNSP SNOMED Code(s): 541076574 (3) Failure of outpatient treatment Current Visit: Yes Status: Acute Code(s): Z78.9 - OTHER SPECIFIED HEALTH STATUS SNOMED Code(s): 395340973 (4) Allergy to multiple antibiotics Current Visit: Yes Status: Acute Code(s): Z88.1 - ALLERGY STATUS TO OTHER ANTIBIOTIC AGENTS SNOMED Code(s): 389009388 (5) Wound of right foot Current Visit: Yes Status: Acute Code(s): S91.301A - UNSPECIFIED OPEN WOUND, RIGHT FOOT, INITIAL ENCOUNTER SNOMED Code(s): 655247281 Plan: 1patient presented to the hospital with right diabetic foot ulcer with associated secondary cellulitis likely infected callus failing outpatient oral Keflex and likely because of oral disease review of the culture previously has grown mostly Streptococcus agalactiae and no culture positive for MRSA 2-patient with multiple antibiotic ALLERGIES that would limit the number of antibiotic safe to use 3-local culture growing Streptococcus agalactiae 4-patient is afebrile white count has normalized. 5patient to be treated with cefazolin and local wound care with a dry Aquacel dressing change q. 48-hour hopefully transition to oral antibiotics on discharge Dictation was produced using [employer] dictation software. please excuse any grammatical, word or spelling errors. Time with Patient: Less than 30
[2025-01-19 16:36] LABS: Glucose,Whole Blood 147 mg/dL (70-110)
[2025-01-19] MEDS: amLODIPine 5 MG TAB PO STA (18:38)
[2025-01-19 20:20] LABS: Glucose,Whole Blood 188 mg/dL (70-110)
[2025-01-20 05:56] LABS: Glucose,Whole Blood 168 mg/dL (70-110)
[2025-01-20 07:14] LABS: HCT 36.6 % (37.2-46.3); HGB 11.9 g/dL (12.0-15.0); MCH 29.6 pg (27.0-32.0); MCHC 32.5 g/dL (32.0-37.0); MCV 91.0 fL (80.0-97.0); Platelet Count 299 10*3/uL (140-440); RBC 4.02 10*6/uL (4.10-5.20); RDW 12.1 % (11.5-14.5); WBC 6.41 10*3/uL (4.50-10.00)
[2025-01-20 07:29] LABS: ALT 8 U/L (4-34); AST 19 U/L (14-36); African American GFR (CKD) >90 (>60 ml/min/1.73 sqM); Albumin 3.0 g/dL (3.5-5.0); Alkaline Phosphatase 80 U/L (38-126); Anion Gap 9 mmol/L; Blood Urea Nitrogen 14 mg/dL (7-17); Calcium 9.1 mg/dL (8.4-10.2); Carbon Dioxide 23 mmol/L (22-30); Chloride 106 mmol/L (98-107); Glucose 169 mg/dL (74-99); Non-African American GFR(CKD) 83 (>60 ml/min/1.73 sqM); Potassium 4.3 mmol/L (3.5-5.1); Sodium 138 mmol/L (137-145); Total Protein 5.3 g/dL (6.3-8.2)
[2025-01-20 11:40] LABS: Glucose,Whole Blood 262 mg/dL (70-110)
--- NOTE | 2025-01-20 15:21 | P.PN ---
Subjective Progress Note Date: 01/20/25 Principal diagnosis: Reason for follow-up is right diabetic foot ulcer and cellulitis Patient is a 74-year-old female past medical history significant for diabetes mellitus hypertension osteoarthritis anxiety did have a history of right foot callus and apparently which has broken off and the due to formation of an ulceration patient did have debridement of the wound done by her student admissions clerk and subsequent sent to hospital with worsening cellulitis failing outpatient oral Keflex. On today's evaluation that is 01/20/2025, patient did have a temperature of 98 F this morning and denies having any chills, patient is on room air and breathing comfortably no chest pain or cough, the patient did not have any nausea vomiting abdominal pain or any diarrhea patient pain to the right foot has decreased in intensity feeling better wants to go home. Patient white count 6.41, creatinine 0.72 local culture was Streptococcus agalactiae Objective - Vital Signs Vital signs: Vital Signs Temp 97.8 F 01/20/25 08:25 Pulse 80 01/20/25 12:00 Resp 17 01/20/25 12:00 BP 171/82 01/20/25 12:00 Pulse Ox 97 01/20/25 12:00 FiO2 Intake & Output 01/19/25 01/20/25 01/20/25 18:59 06:59 18:59 Intake Total 517 20 220 Balance 517 20 220 Weight 108.2 kg Intake: IV 10 20 20 Invasive Line 2 10 20 20 Oral 507 200 Other: Voiding Method Bedside Commode Bedside Commode Bedside Commode # Voids 1 1 # Bowel Movements 1 1 - Exam GENERAL DESCRIPTION: An elderly female lying in bed in no distress RESPIRATORY SYSTEM: Unlabored breathing , decreased breath sounds at bases HEART: S1 S2 regular rate and rhythm , ABDOMEN: Soft , no tenderness EXTREMITIES: Right foot swelling redness has decreased - Labs CBC & Chem 7: 01/20/25 05:49 01/20/25 05:49 Labs: Abnormal Lab Results - Last 24 Hours (Table) 01/19/25 01/19/25 01/20/25 Range/Units 16:34 20:17 05:49 RBC 4.02 L (4.10-5.20) 10*6/uL Hgb 11.9 L (12.0-15.0) g/dL Hct 36.6 L (37.2-46.3) % Glucose (74-99) mg/dL POC Glucose (mg/dL) 147 H 188 H (70-110) mg/dL Total Protein (6.3-8.2) g/dL Albumin (3.5-5.0) g/dL 01/20/25 01/20/25 01/20/25 Range/Units 05:49 05:55 11:37 RBC (4.10-5.20) 10*6/uL Hgb (12.0-15.0) g/dL Hct (37.2-46.3) % Glucose 169 H (74-99) mg/dL POC Glucose (mg/dL) 168 H 262 H (70-110) mg/dL Total Protein 5.3 L (6.3-8.2) g/dL Albumin 3.0 L (3.5-5.0) g/dL Microbiology - Last 24 Hours (Table) 01/18/25 06:17 Anaerobic Culture - Preliminary Foot - Right 01/18/25 06:17 Gram Stain - Final Foot - Right Wound Culture - Final Strep agalactiae - (group b) 01/16/25 17:39 Blood Culture - Preliminary Blood Assessment and Plan (1) Diabetic foot ulcer Current Visit: Yes Status: Acute Code(s): E11.621 - TYPE 2 DIABETES MELLITUS WITH FOOT ULCER; L97.509 - NON-PRESSURE CHRONIC ULCER OTH PRT UNSP FOOT W UNSP SEVERITY SNOMED Code(s): 696822669 (2) Diabetic foot infection Current Visit: Yes Status: Acute Code(s): E11.628 - TYPE 2 DIABETES MELLITUS WITH OTHER SKIN COMPLICATIONS; L08.9 - LOCAL INFECTION OF THE SKIN AND SUBCUTANEOUS TISSUE, UNSP SNOMED Code(s): 214246378 (3) Failure of outpatient treatment Current Visit: Yes Status: Acute Code(s): Z78.9 - OTHER SPECIFIED HEALTH STATUS SNOMED Code(s): 619715758 (4) Allergy to multiple antibiotics Current Visit: Yes Status: Acute Code(s): Z88.1 - ALLERGY STATUS TO OTHER ANTIBIOTIC AGENTS SNOMED Code(s): 706742746 (5) Wound of right foot Current Visit: Yes Status: Acute Code(s): S91.301A - UNSPECIFIED OPEN WOUND, RIGHT FOOT, INITIAL ENCOUNTER SNOMED Code(s): 298899607 Plan: 1patient presented to the hospital with right diabetic foot ulcer with associated secondary cellulitis likely infected callus failing outpatient oral Keflex and likely because of oral disease review of the culture previously has grown mostly Streptococcus agalactiae and no culture positive for MRSA 2-patient with multiple antibiotic ALLERGIES that would limit the number of antibiotic safe to use 3-local culture growing Streptococcus agalactiae, patient is afebrile white count has normalized. 4patient currently being treated with cefazolin and local wound care with a dry Aquacel dressing change q. 48-hour, plan is to finish therapy with oral Keflex and close outpatient follow-up Dictation was produced using [employer] dictation software. please excuse any grammatical, word or spelling errors.
[2025-01-20 17:13] LABS: Glucose,Whole Blood 126 mg/dL (70-110)
[2025-01-20 20:16] LABS: Glucose,Whole Blood 186 mg/dL (70-110)
[2025-01-21 07:06] LABS: Glucose,Whole Blood 148 mg/dL (70-110)
[2025-01-21 09:43] LABS: Basophils # (A) 0.03 X 10*3/uL (0.00-0.10); Basophils % (A) 0.4 %; Eosinophils # (A) 0.12 X 10*3/uL (0.04-0.35); Eosinophils % (A) 1.5 %; HCT 37.8 % (37.2-46.3); HGB 11.8 g/dL (12.0-15.0); Immature Grans, Automated 0.40 %; Lymphocytes # (A) 2.41 X 10*3/uL (0.90-5.00); Lymphocytes % (A) 31.1 %; MCH 28.9 pg (27.0-32.0); MCHC 31.2 g/dL (32.0-37.0); MCV 92.6 FL (80.0-97.0); Monocytes # (A) 0.54 X 10*3/uL (0.20-1.00); Monocytes % (A) 7.0 %; NRBC Per 100 WBC 0 X 10*3/uL (0.00-0.01); Neutrophils # (A) 4.62 X 10*3/uL (1.80-7.70); Neutrophils % (A) 59.6 %; Platelet Count 315 X 10*3/uL (140-440); RBC 4.08 X 10*6/uL (4.10-5.20); RDW 12.3 % (11.5-14.5); WBC 7.75 X 10*3/uL (4.50-10.00)
[2025-01-21 09:59] LABS: Anion Gap 12.30 mmol/L (4.00-12.00); BUN/Creat Ratio 16.89 Ratio (12.00-20.00); Blood Urea Nitrogen 15.2 mg/dL (9.0-27.0); Calcium 9.2 mg/dL (8.7-10.3); Carbon Dioxide 23.7 mmol/L (21.6-31.8); Chloride 102 mmol/L (96-109); Glucose 164 mg/dL (70-110); Potassium 4.8 mmol/L (3.5-5.5); Sodium 138 mmol/L (135-145)
[2025-01-21 11:52] LABS: Glucose,Whole Blood 182 mg/dL (70-110)
--- NOTE | 2025-01-21 16:00 | P.PN ---
Subjective Progress Note Date: 01/21/25 Principal diagnosis: Reason for follow-up is right diabetic foot ulcer and cellulitis Patient is a 74-year-old female past medical history significant for diabetes mellitus hypertension osteoarthritis anxiety did have a history of right foot callus and apparently which has broken off and the due to formation of an ulceration patient did have debridement of the wound done by her environmental field office manager and subsequent sent to hospital with worsening cellulitis failing outpatient oral Keflex. On today's evaluation that is 01/21/2025, Patient is afebrile patient is currently on room air and denies having any shortness of breath, the patient denies any chest pain or cough, the patient denies any nausea vomiting did not have any abdominal pain and no diarrhea patient hide foot swelling redness and decreased. Patient white count 7.75, creatinine 0.9 Objective - Vital Signs Vital signs: Vital Signs Temp 97.6 F 01/21/25 12:51 Pulse 68 01/21/25 14:00 Resp 16 01/21/25 14:00 BP 161/63 01/21/25 12:51 Pulse Ox 98 01/21/25 12:51 FiO2 Intake & Output 01/20/25 01/21/25 01/21/25 18:59 06:59 18:59 Intake Total 220 540 Balance 220 540 Weight 104.5 kg Intake: IV 20 Invasive Line 2 20 Oral 200 540 Other: Voiding Method Bedside Commode Toilet Toilet # Voids 1 # Bowel Movements 1 - Exam GENERAL DESCRIPTION: An elderly female lying in bed in no distress RESPIRATORY SYSTEM: Unlabored breathing , decreased breath sounds at bases HEART: S1 S2 regular rate and rhythm , ABDOMEN: Soft , no tenderness EXTREMITIES: Right foot swelling redness has decreased - Labs CBC & Chem 7: 01/21/25 04:31 01/21/25 04:31 Labs: Abnormal Lab Results - Last 24 Hours (Table) 01/20/25 01/20/25 01/21/25 Range/Units 17:12 20:15 04:31 RBC 4.08 L (4.10-5.20) X 10*6/uL Hgb 11.8 L (12.0-15.0) g/dL MCHC 31.2 L (32.0-37.0) g/dL Anion Gap (4.00-12.00) mmol/L Glucose (70-110) mg/dL POC Glucose (mg/dL) 126 H 186 H (70-110) mg/dL 01/21/25 01/21/25 01/21/25 Range/Units 04:31 07:05 11:50 RBC (4.10-5.20) X 10*6/uL Hgb (12.0-15.0) g/dL MCHC (32.0-37.0) g/dL Anion Gap 12.30 H (4.00-12.00) mmol/L Glucose 164 H (70-110) mg/dL POC Glucose (mg/dL) 148 H 182 H (70-110) mg/dL Microbiology - Last 24 Hours (Table) 01/18/25 06:17 Anaerobic Culture - Preliminary Foot - Right Assessment and Plan (1) Diabetic foot ulcer Current Visit: Yes Status: Acute Code(s): E11.621 - TYPE 2 DIABETES MELLITUS WITH FOOT ULCER; L97.509 - NON-PRESSURE CHRONIC ULCER OTH PRT UNSP FOOT W UNSP SEVERITY SNOMED Code(s): 194157663 (2) Diabetic foot infection Current Visit: Yes Status: Acute Code(s): E11.628 - TYPE 2 DIABETES MELLITUS WITH OTHER SKIN COMPLICATIONS; L08.9 - LOCAL INFECTION OF THE SKIN AND SUBCUTANEOUS TISSUE, UNSP SNOMED Code(s): 890565579 (3) Failure of outpatient treatment Current Visit: Yes Status: Acute Code(s): Z78.9 - OTHER SPECIFIED HEALTH STATUS SNOMED Code(s): 973376189 (4) Allergy to multiple antibiotics Current Visit: Yes Status: Acute Code(s): Z88.1 - ALLERGY STATUS TO OTHER ANTIBIOTIC AGENTS SNOMED Code(s): 079520510 (5) Wound of right foot Current Visit: Yes Status: Acute Code(s): S91.301A - UNSPECIFIED OPEN WOUND, RIGHT FOOT, INITIAL ENCOUNTER SNOMED Code(s): 434203168 Plan: 1patient presented to the hospital with right diabetic foot ulcer with associated secondary cellulitis likely infected callus failing outpatient oral K eflex and likely because of oral disease review of the culture previously has grown mostly Streptococcus agalactiae and no culture positive for MRSA 2-patient with multiple antibiotic ALLERGIES that would limit the number of antibiotic safe to use 3-local culture growing Streptococcus agalactiae, patient is afebrile white count has normalized. 4patient to continue with the cefazolin will add oral Flagyl pending anaerobic cultures hopefully transition to oral antibiotics on discharge Dictation was produced using [employer] dictation software. please excuse any grammatical, word or spelling errors. Time with Patient: Less than 30
[2025-01-21 16:55] LABS: Glucose,Whole Blood 161 mg/dL (70-110)
[2025-01-21] MEDS: metroNIDAZOLE 500 MG TAB PO SCH (17:44)
[2025-01-21 20:28] LABS: Glucose,Whole Blood 239 mg/dL (70-110)
--- NOTE | 2025-01-21 23:28 | P.PN ---
Subjective Progress Note Date: 01/20/25 Diabetic foot ulcer. With cellulitis. The patient is here after having debridement but still has continued swelling and cellulitis of the right foot. Minimal pain. No fever 01/20/2025 Patient is resting in the bed. Awake alert and oriented x 3. No complaints of chest pain or shortness breath. Right foot pain is controlled. Patient has been afebrile. No nausea vomiting abdominal pain or diarrhea. Patient is being continued on antibiotics in the form of cefazolin. Wound cultures showed strep agalactiae. Laboratory data showed WBC 6.4 hemoglobin 11.9 and platelets 299 blood sugar 168. Albumin 3.0. ID is on board. Current medications reviewed. Objective - Vital Signs Vital signs: Vital Signs Temp 97.8 F 01/20/25 08:25 Pulse 80 01/20/25 12:00 Resp 17 01/20/25 12:00 BP 171/82 01/20/25 12:00 Pulse Ox 97 01/20/25 12:00 FiO2 Intake & Output 01/19/25 01/20/25 01/20/25 18:59 06:59 18:59 Intake Total 517 20 10 Balance 517 20 10 Weight 108.2 kg Intake: IV 10 20 10 Invasive Line 2 10 20 10 Oral 507 0 Other: Voiding Method Bedside Commode Bedside Commode Bedside Commode # Voids 1 1 # Bowel Movements 1 1 - Exam - Constitutional General appearance: Present: average body habitus - EENT Eyes: Absent: abnormal pupil - Neck Neck: Present: lymphadenopathy - Respiratory Respiratory: bilateral: diminished - Cardiovascular Rhythm: regular Heart sounds: normal: S1, S2 Abnormal Heart Sounds: Absent: S3 Gallop - Gastrointestinal General gastrointestinal: Present: soft. Absent: tenderness - Integumentary Integumentary: Present: cellulitis - Psychiatric Psychiatric: Present: A&O x's 3 - Labs CBC & Chem 7: 01/21/25 04:31 01/21/25 04:31 Labs: Abnormal Lab Results - Last 24 Hours (Table) 01/19/25 01/19/25 01/20/25 Range/Units 16:34 20:17 05:49 RBC 4.02 L (4.10-5.20) 10*6/uL Hgb 11.9 L (12.0-15.0) g/dL Hct 36.6 L (37.2-46.3) % Glucose (74-99) mg/dL POC Glucose (mg/dL) 147 H 188 H (70-110) mg/dL Total Protein (6.3-8.2) g/dL Albumin (3.5-5.0) g/dL 01/20/25 01/20/25 01/20/25 Range/Units 05:49 05:55 11:37 RBC (4.10-5.20) 10*6/uL Hgb (12.0-15.0) g/dL Hct (37.2-46.3) % Glucose 169 H (74-99) mg/dL POC Glucose (mg/dL) 168 H 262 H (70-110) mg/dL Total Protein 5.3 L (6.3-8.2) g/dL Albumin 3.0 L (3.5-5.0) g/dL Microbiology - Last 24 Hours (Table) 01/18/25 06:17 Anaerobic Culture - Preliminary Foot - Right 01/18/25 06:17 Gram Stain - Final Foot - Right Wound Culture - Final Strep agalactiae - (group b) 01/16/25 17:39 Blood Culture - Preliminary Blood Assessment and Plan Assessment: Assessment and Plan (1) Severe sepsis Current Visit: Yes Status: Acute Code(s): A41.9 - SEPSIS, UNSPECIFIED ORGANISM; R65.20 - SEVERE SEPSIS WITHOUT SEPTIC SHOCK SNOMED Code(s): 32106018 (2) Wound of right foot Current Visit: Yes Status: Acute Code(s): S91.301A - UNSPECIFIED OPEN WOUND, RIGHT FOOT, INITIAL ENCOUNTER SNOMED Code(s): 384592169 (3) Diabetic ulcer of toe of right foot with fat layer exposed Current Visit: No Status: Acute Code(s): E11.621 - TYPE 2 DIABETES MELLITUS WITH FOOT ULCER; L97.512 - NON-PRS CHRONIC ULCER OTH PRT RIGHT FOOT W FAT LAYER EXPOSED SNOMED Code(s): 657767857 Plan: Continue antibiotics, cefazolin and wound care. Follow-up final culture report. Slow improvement is noted. Check CBC and BMP in AM.
--- NOTE | 2025-01-21 23:29 | P.PN ---
Subjective Progress Note Date: 01/21/25 Diabetic foot ulcer. With cellulitis. The patient is here after having debridement but still has continued swelling and cellulitis of the right foot. Minimal pain. No fever 01/20/2025 Patient is resting in the bed. Awake alert and oriented x 3. No complaints of chest pain or shortness breath. Right foot pain is controlled. Patient has been afebrile. No nausea vomiting abdominal pain or diarrhea. Patient is being continued on antibiotics in the form of cefazolin. Wound cultures showed strep agalactiae. Laboratory data showed WBC 6.4 hemoglobin 11.9 and platelets 299 blood sugar 168. Albumin 3.0. ID is on board. 01/21/2025 Patient is resting in the bed. No other acute overnight issues. Continued on cefazolin. Follow-up final wound culture report. Continue insulin regimen. ID is on board. Current medications reviewed. Objective - Vital Signs Vital signs: Vital Signs Temp 98.1 F 01/21/25 18:55 Pulse 74 01/21/25 18:55 Resp 17 01/21/25 18:55 BP 170/64 01/21/25 18:55 Pulse Ox 98 01/21/25 18:55 FiO2 Intake & Output 01/21/25 01/21/25 01/22/25 06:59 18:59 06:59 Intake Total 540 480 240 Balance 540 480 240 Weight 104.5 kg Intake: Oral 540 480 240 Other: Voiding Method Toilet Toilet Toilet # Voids 1 2 - Exam - Constitutional General appearance: Present: average body habitus - EENT Eyes: Absent: abnormal pupil - Neck Neck: Present: lymphadenopathy - Respiratory Respiratory: bilateral: diminished - Cardiovascular Rhythm: regular Heart sounds: normal: S1, S2 Abnormal Heart Sounds: Absent: S3 Gallop - Gastrointestinal General gastrointestinal: Present: soft. Absent: tenderness - Integumentary Integumentary: Present: cellulitis - Psychiatric Psychiatric: Present: A&O x's 3 - Labs CBC & Chem 7: 01/21/25 04:31 01/21/25 04:31 Labs: Abnormal Lab Results - Last 24 Hours (Table) 01/21/25 01/21/25 01/21/25 Range/Units 04:31 04:31 07:05 RBC 4.08 L (4.10-5.20) X 10*6/uL Hgb 11.8 L (12.0-15.0) g/dL MCHC 31.2 L (32.0-37.0) g/dL Anion Gap 12.30 H (4.00-12.00) mmol/L Glucose 164 H (70-110) mg/dL POC Glucose (mg/dL) 148 H (70-110) mg/dL 01/21/25 01/21/25 01/21/25 Range/Units 11:50 16:54 20:25 RBC (4.10-5.20) X 10*6/uL Hgb (12.0-15.0) g/dL MCHC (32.0-37.0) g/dL Anion Gap (4.00-12.00) mmol/L Glucose (70-110) mg/dL POC Glucose (mg/dL) 182 H 161 H 239 H (70-110) mg/dL Assessment and Plan Assessment: Assessment and Plan (1) Severe sepsis Current Visit: Yes Status: Acute Code(s): A41.9 - SEPSIS, UNSPECIFIED ORGANISM; R65.20 - SEVERE SEPSIS WITHOUT SEPTIC SHOCK SNOMED Code(s): 95244998 (2) Wound of right foot Current Visit: Yes Status: Acute Code(s): S91.301A - UNSPECIFIED OPEN WOUND, RIGHT FOOT, INITIAL ENCOUNTER SNOMED Code(s): 067669414 (3) Diabetic ulcer of toe of right foot with fat layer exposed Current Visit: No Status: Acute Code(s): E11.621 - TYPE 2 DIABETES MELLITUS WITH FOOT ULCER; L97.512 - NON-PRS CHRONIC ULCER OTH PRT RIGHT FOOT W FAT LAYER EXPOSED SNOMED Code(s): 198220357 Plan: Continue antibiotics, cefazolin and wound care. Follow-up final culture report. ID is on board. Slow improvement is noted. Check CBC and BMP in AM.
[2025-01-22 07:13] LABS: Glucose,Whole Blood 154 mg/dL (70-110)
[2025-01-22 07:30] VITALS: BP 154/61; PULSE 68; RESP 18; TEMP 98
[2025-01-22 07:58] LABS: Anion Gap 12.40 mmol/L (4.00-12.00); BUN/Creat Ratio 19.44 Ratio (12.00-20.00); Blood Urea Nitrogen 17.5 mg/dL (9.0-27.0); Calcium 9.0 mg/dL (8.7-10.3); Carbon Dioxide 22.6 mmol/L (21.6-31.8); Chloride 103 mmol/L (96-109); Glucose 152 mg/dL (70-110); Potassium 4.6 mmol/L (3.5-5.5); Sodium 138 mmol/L (135-145)
[2025-01-22 08:05] LABS: Basophils # (A) 0.03 X 10*3/uL (0.00-0.10); Basophils % (A) 0.4 %; Eosinophils # (A) 0.13 X 10*3/uL (0.04-0.35); Eosinophils % (A) 1.7 %; HCT 36.3 % (37.2-46.3); HGB 11.1 g/dL (12.0-15.0); Immature Grans, Automated 0.40 %; Lymphocytes # (A) 2.17 X 10*3/uL (0.90-5.00); Lymphocytes % (A) 28.9 %; MCH 28.9 pg (27.0-32.0); MCHC 30.6 g/dL (32.0-37.0); MCV 94.5 FL (80.0-97.0); Monocytes # (A) 0.55 X 10*3/uL (0.20-1.00); Monocytes % (A) 7.3 %; NRBC Per 100 WBC 0 X 10*3/uL (0.00-0.01); Neutrophils # (A) 4.60 X 10*3/uL (1.80-7.70); Neutrophils % (A) 61.3 %; Platelet Count 280 X 10*3/uL (140-440); RBC 3.84 X 10*6/uL (4.10-5.20); RDW 12.4 % (11.5-14.5); WBC 7.51 X 10*3/uL (4.50-10.00)
--- NOTE | 2025-01-22 09:04 | P.DS ---
Providers Date of admission: 01/16/25 19:18 Attending physician: Jonel Aguilar Consults: 01/16/25 19:52 Consult Physician Urgent Consulting Provider: Mendoza Tam Consult Reason/Comments: Right foot wound Do you want consulting provider notified?: Yes Primary care physician: Jonel Aguilar - Discharge Diagnosis(es) (1) Severe sepsis Current Visit: Yes Status: Acute (2) Wound of right foot Current Visit: Yes Status: Acute (3) Diabetes Current Visit: No Status: Acute (4) Diabetic ulcer of toe of right foot with fat layer exposed Current Visit: No Status: Acute (5) Failure of outpatient treatment Current Visit: Yes Status: Acute Hospital Course: This is a 74-year-old female who presented to the emergency department with complaints of a right foot infection. Patient had been seen by podiatry who had done a debridement and started patient on Keflex however wound was not healing appropriately so she came to the ER for further evaluation and treatment. Patient seen and evaluated by infectious disease during this admission and has been maintained on IV antibiotics. The wound has improved and she is feeling much better. She will be discharged home on recommendations from infectious disease. Patient's blood pressure elevated during admission and she was started on losartan. She will be sent home with a prescription for losartan and follow- up in our office within 1 week. Patient seen and evaluated by nurse practitioner, physician in agreement with plan. Patient Condition at Discharge: Stable Plan - Discharge Summary Discharge Rx Participant: No New Discharge Prescriptions: New Losartan [Cozaar] 50 mg PO DAILY 30 Days #30 tab Continue PARoxetine [Paxil] 20 mg PO DAILY diphenhydrAMINE [Benadryl] 25 mg PO BID metFORMIN HCL ER [Glucophage XR] 1,000 mg PO BID Atorvastatin [Lipitor] 80 mg PO HS #30 tab Famotidine [Pepcid] 20 mg PO BID Aspirin 81 mg PO DAILY tab Multivitamins, Thera [Multivitamin (formulary)] 1 tab PO DAILY No Action Cephalexin [Keflex] 500 mg PO QID Discharge Medication List PARoxetine [Paxil] 20 mg PO DAILY 01/10/18 [History] diphenhydrAMINE [Benadryl] 25 mg PO BID 01/10/18 [History] metFORMIN HCL ER [Glucophage XR] 1,000 mg PO BID 05/30/23 [History] Aspirin 81 mg PO DAILY tab 06/02/23 [Rx] Atorvastatin [Lipitor] 80 mg PO HS #30 tab 06/02/23 [Rx] Cephalexin [Keflex] 500 mg PO QID 01/16/25 [History] Famotidine [Pepcid] 20 mg PO BID 01/16/25 [History] Multivitamins, Thera [Multivitamin (formulary)] 1 tab PO DAILY 01/16/25 [History] Losartan [Cozaar] 50 mg PO DAILY 30 Days #30 tab 01/22/25 [Rx] Follow up Appointment(s)/Referral(s): Jonel Aguilar MD [Primary Care Provider] - 1 Week Mendoza Tam MD [STAFF PHYSICIAN] - 1 Week [facility] Visiting Nurse, [NON-STAFF] - Discharge Disposition: HOME WITH HOME HEALTH SERVICES
[2025-01-22 12:21] LABS: Glucose,Whole Blood 183 mg/dL (70-110)
--- NOTE | 2025-01-22 14:04 | P.PN ---
Subjective Progress Note Date: 01/22/25 Reason for follow-up is right diabetic foot ulcer and cellulitis Patient is a 74-year-old female past medical history significant for diabetes mellitus hypertension osteoarthritis anxiety did have a history of right foot callus and apparently which has broken off and the due to formation of an ulceration patient did have debridement of the wound done by her creative specialist and subsequent sent to hospital with worsening cellulitis failing outpatient oral Keflex. 01/22/2025 patient seen and examined at bedside. No acute events overnight. No new complaints or symptoms. Patient currently on room air Labs: WBC 7.51, hemoglobin 11.1, creatinine 0.9 Objective - Vital Signs Vital signs: Vital Signs Temp 98 F 01/22/25 07:11 Pulse 68 01/22/25 07:11 Resp 18 01/22/25 07:11 BP 154/61 01/22/25 07:11 Pulse Ox 98 01/22/25 07:11 FiO2 Intake & Output 01/21/25 01/22/25 01/22/25 18:59 06:59 18:59 Intake Total 480 240 Balance 480 240 Intake: Oral 480 240 Other: Voiding Method Toilet Toilet # Voids 2 1 - Exam Physical examination: Vital signs reviewed General: non toxic, no distress, appears at stated age Head: atraumatic, normocephalic, symmetric Mouth: no lip lesion, mucus membranes moist Cardiovascular: S1S2 reg, no murmur Lungs: CTA bilateral, no rhonchi, no rales, no accessory muscle use Abdominal: soft, nondistended, nontender to palpation, no guarding Ext: muscle strength 5 out of 5 in all 4 extremities grossly, no gross muscle atrophy, no contractures, positive dorsalis pedis pulse bilateral, no edema, right lateral foot wound dry without foul smell or discharge, swelling and erythema Neuro: no gross focal neuro deficits Psych: Alert and oriented x3, appropriate affect and mood - Labs CBC & Chem 7: 01/22/25 04:51 01/22/25 04:51 Labs: Abnormal Lab Results - Last 24 Hours (Table) 01/21/25 01/21/25 01/21/25 Range/Units 11:50 16:54 20:25 RBC (4.10-5.20) X 10*6/uL Hgb (12.0-15.0) g/dL Hct (37.2-46.3) % MCHC (32.0-37.0) g/dL Anion Gap (4.00-12.00) mmol/L Glucose (70-110) mg/dL POC Glucose (mg/dL) 182 H 161 H 239 H (70-110) mg/dL 01/22/25 01/22/25 01/22/25 Range/Units 04:51 04:51 07:12 RBC 3.84 L (4.10-5.20) X 10*6/uL Hgb 11.1 L (12.0-15.0) g/dL Hct 36.3 L (37.2-46.3) % MCHC 30.6 L (32.0-37.0) g/dL Anion Gap 12.40 H (4.00-12.00) mmol/L Glucose 152 H (70-110) mg/dL POC Glucose (mg/dL) 154 H (70-110) mg/dL Microbiology - Last 24 Hours (Table) 01/16/25 17:39 Blood Culture - Final Blood Assessment and Plan (1) Diabetic foot infection Status: Acute Code(s): E11.628 - TYPE 2 DIABETES MELLITUS WITH OTHER SKIN COMPLICATIONS; L08.9 - LOCAL INFECTION OF THE SKIN AND SUBCUTANEOUS TISSUE, UNSP SNOMED Code(s): 590110689 (2) Diabetic foot ulcer Status: Acute Code(s): E11.621 - TYPE 2 DIABETES MELLITUS WITH FOOT ULCER; L97.509 - NON-PRESSURE CHRONIC ULCER OTH PRT UNSP FOOT W UNSP SEVERITY SNOMED Code(s): 686099064 (3) Failure of outpatient treatment Status: Acute Code(s): Z78.9 - OTHER SPECIFIED HEALTH STATUS SNOMED Code(s): 712109327 (4) Wound of right foot Status: Acute Code(s): S91.301A - UNSPECIFIED OPEN WOUND, RIGHT FOOT, INITIAL ENCOUNTER SNOMED Code(s): 856570622 (5) Allergy to multiple antibiotics Status: Acute Code(s): Z88.1 - ALLERGY STATUS TO OTHER ANTIBIOTIC AGENTS SNOMED Code(s): 102472562 Plan: patient presented to the hospital with right diabetic foot ulcer with associated secondary cellulitis likely infected callus failing outpatient oral Keflex and likely because of oral disease review of the culture previously has grown mostly Streptococcus agalactiae and no culture positive for MRSA -patient with multiple antibiotic ALLERGIES that would limit the number of antibiotic safe to use -local culture growing Streptococcus agalactiae, patient is afebrile white count has normalized. patient currently on IV cefazolin and oral Flagyl. Negative anaerobic cultures. Will discharge on Keflex p.o for 14 days Janette Arreaga MD PGY-2 Infectious disease service Patient was personally seen and examined care discussed in detail with the resident physician documentation reviewed and agree, patient to finish therapy with oral Keflex and Flagyl prescription have been sent to the pharmacy and close outpatient follow-up Dictation was produced using [employer] dictation software. please excuse any grammatical, word or spelling errors. Time with Patient: Less than 30
== END 2025-01-22 12:52 | disposition home health service (06) | DRG 872 ==
LOC: EC 17:00 → 3SCARD 19:18 → 5NMEDONC 01-20 16:00
PROVIDERS: ADMIT Family Medicine; ATTEND Family Medicine
DX: A41.9 Sepsis, unspecified organism (principal); L03.115 Cellulitis of right lower limb; E11.621 Type 2 diabetes mellitus with foot ulcer; I10 Essential (primary) hypertension; R65.20 Severe sepsis without septic shock; L97.512 Non-pressure chronic ulcer of other part of right foot with fat layer exposed; E11.628 Type 2 diabetes mellitus with other skin complications; Z79.4 Long term (current) use of insulin; Z87.891 Personal history of nicotine dependence; Z79.84 Long term (current) use of oral hypoglycemic drugs; Z79.82 Long term (current) use of aspirin; Z88.0 Allergy status to penicillin; Z88.2 Allergy status to sulfonamides; Z88.1 Allergy status to other antibiotic agents; Z79.899 Other long term (current) drug therapy
CPT/HCPCS: 36415; 80048; 80053; 82565; 83036; 83605; 85025; 85027; 87040; 87070; 87075; 87205; 96365; 96366; 99285